=== PATIENT | female | born 1960 | race Caucasian/White ===

== ENCOUNTER 2019-02-09 14:22 | Outpatient (CLI) | payer OTHER, SELFPAY ==
[2019-02-09 15:37] LABS: TSH (W/Ref FT4) 2.37 uIU/mL (0.36-3.74)
== END 2019-02-09 14:42 ==
PROVIDERS: PCP General Practice; Visit Provider General Practice
DX: E04.8 Other specified nontoxic goiter (principal)
CPT/HCPCS: 36415; 84443

== ENCOUNTER 2019-03-18 06:19 | Day surgery (SDC) | payer OTHER, SELFPAY ==
[2019-03-18 06:41] VITALS: BP 121/79; PULSE 70; RESP 16; TEMP 36.3; O2SAT 100
[2019-03-18] MEDS: Lactated Ringers 1,000 ML 80 ML IV (06:58)
--- NOTE | 2019-03-18 07:25 | W.PM.DSUDISC ---
Discharge Plan Disposition Patient Disposition: HOME Condition: Good Discharge Details Reason For Visit: Colonoscopy Attending Provider: Nikki Levi Primary Care Provider: Francisco Javier Bonner Home Meds and New Rx's Prescriptions: Continued cholecalciferol (vitamin D3) 1,000 unit capsule 1,000 unit PO DAILY RF: 0 calcium carbonate [Calci-Chew] 500 mg calcium (1,250 mg) tablet,chewable 500 mg PO DAILY RF: 0 ascorbic acid (vitamin C) 500 mg capsule 500 mg PO DAILY RF: 0 Zyrtec 10 mg capsule 10 mg PO DAILY PRNRF: 0 epinephrine [EpiPen] 0.3 mg/0.3 mL auto-injector 0.3 mg IM ONCE RF: 0 albuterol sulfate [Ventolin HFA] 90 mcg/actuation HFA aerosol inhaler 1 puff IH PRN RF: 0 Discontinued polyethylene glycol 3350 17 gram/dose powder 238 g PO ONCE Qty: 238 RF: 0 bisacodyl [Dulcolax (bisacodyl)] 5 mg tablet,delayed release (DR/EC) 5 mg PO ONCE Qty: 4 RF: 0 Discharge Instructions Additional Instructions: Findings: Your colonoscopy was normal. Follow up: Plan for follow up screening colonoscopy in 10 years or sooner if symptoms arise. Please call if you develop: fevers >101.5 Nausea or Vomiting Abdominal pain that is not transient DAY SURGERY UNIT POST COLONOSCOPY INSTRUCTIONS 1. Because there will be medication in your system for the next 24 hours, you may feel a little sleepy. Your coordination will be affected. Therefore: a. Do not drive or operate dangerous equipment for 24 hours. b. Do not drink alcohol beverages for 24 hours (not even beer). c. Plan to go home and rest for the day. 2. Generally there are no restrictions on your activity after a day or so has gone by, but you may feel a bit fatigued for a few days. 3 After you arrive home you may have a light meal and return to a normal diet as you can tolerate it without feeling sick to your stomach. 4. After surgery, you may feel pain or discomfort. This should be only transient, but if it persists please contact your doctor. 5. If there are any questions regarding the findings of your procedure, please feel free to contact your doctor. 6. If you are unable to contact your doctor with a problem, contact the hospital at [phone]. 7. Continue all your regular medications unless directed otherwise. I understand the above instructions and have no questions. Signature of Patient or Responsible Adult Escort Date/Time Name of Responsible Adult Escort Signature of Nurse Date/Time Activity:: Activity as Tolerated Diet:: As Tolerated Discharge Orders Discharge Orders: Discharge Order (Routine); Ordered 03/18/19 Ordered By: Nikki Levi DS: Diagnosis Discharge Diagnosis (1) Normal colonoscopy: Status: Acute
[2019-03-18 08:29] VITALS: BP 114/76; PULSE 62; RESP 16; TEMP 36.2; O2SAT 100
--- NOTE | 2019-03-18 10:19 | COLE_ITS ---
DATE OF PROCEDURE: March 18, 2019 PREOPERATIVE DIAGNOSIS: Screening. POSTOPERATIVE DIAGNOSIS: Normal colon. PROCEDURE: Colonoscopy. SURGEON: Nikki Levi M.D. ANESTHESIA: General. INDICATIONS: This is a 58-year-old woman who presents for a routine colon screening. Her last one i n 2008 was normal. She is asymptomatic and has no family history of colon cancer. PROCEDURE: She was placed in the left Ann position. Propofol was titrated to sedation. Digital re ctal examination revealed no abnormalities. The scope was advanced to the cecum without difficulty. The ileocecal valve and appendiceal orifice were clearly identified. Her prep was excellent. The s cope was slowly withdrawn with no abnormalities seen within the ascending, transverse, descending, si gmoid colon or rectum, including on retroflex view. She tolerated the procedure and was stable to re covery. She will need a follow-up screening again in ten years or sooner if symptoms indicate. cc: Francisco Javier Bonner M.D.
== END 2019-03-18 09:06 | disposition home or self-care (01) ==
PROVIDERS: PCP General Practice; Visit Provider Surgery
PROC: 0DJD8ZZ Inspection of Lower Intestinal Tract, Via Natural or Artificial Opening Endoscopic (ICD-10-PCS; CPT 45378; principal; 2019-03-18 07:30)
DX: Z12.11 Encounter for screening for malignant neoplasm of colon (principal)
CPT/HCPCS: 45378

== ENCOUNTER 2020-05-17 01:44 | Outpatient (CLI) | payer OTHER, SELFPAY ==
--- NOTE | 2020-05-17 08:00 | DI.US_ITS ---
EXAM: US THYROID CLINICAL HISTORY: enlarged thryoid,goiter, e04.9. TECHNIQUE: Ultrasound thyroid performed using standard protocol. COMPARISON: No exams were available for comparison FINDINGS: ISTHMUS: 3 mm RIGHT LOBE: Size: 4.8 x 1.4 x 1.8 cm Echogenicity: Mildly heterogeneous overall thyroid echotexture. Vascularity: Normal. Nodules: 1.2 x 0.6 x 1.0 centimeter isoechoic solid nodule containing punctate echogenic foci. The m argins are well-defined. Three other smaller nodules are seen measuring 5 millimeters or less in siz e. LEFT LOBE: Size: A 0.5 x 0.9 x 1.5 cm Echogenicity: Normal. Vascularity: Normal. Nodules: None. OTHER FINDINGS: None. IMPRESSION: 1.2 centimeter solid nodule at the lower pole of the right lobe consistent with a TI-RADS category 4 lesion. Follow-up is recommended in 1 year. Normal sonographic appearance of the left thyroid lobe DATA REPOSITORY:
== END 2020-05-17 01:45 ==
LOC: DI 01:45
PROVIDERS: PCP Nurse Practitioner Family; Visit Provider Nurse Practitioner Family
DX: E04.1 Nontoxic single thyroid nodule (principal)
CPT/HCPCS: 76536

== ENCOUNTER 2020-05-31 03:14 | Outpatient (CLI) | payer OTHER, SELFPAY ==
[2020-05-31 16:36] LABS: Anion Gap 9.5 mmol/L (3-11); BUN 23 mg/dL (7-18); CO2 28.5 mmol/L (21.0-32.0); CREATININE 0.9 mg/dL (0.55-1.02); Calculated LDL 81 mg/dL (<100); Chloride 103 mmol/L (98-107); Cholesterol 176 mg/dL (<200); Glucose 87 mg/dL (74-106); HDL Cholesterol 75 mg/dL (40-60); Potassium 4.6 mmol/L (3.5-5.1); Sodium 141 mmol/L (136-145); TSH 1.45 uIU/mL (0.36-3.74); Triglyceride 101 mg/dL (<150)
[2020-05-31 17:10] LABS: FREE T4 0.93 ng/dL (0.76-1.46)
== END 2020-05-31 03:15 | disposition home or self-care (01) ==
LOC: LBO 03:14
PROVIDERS: PCP Nurse Practitioner Family; Visit Provider Nurse Practitioner Family
DX: E78.5 Hyperlipidemia, unspecified (principal); E04.8 Other specified nontoxic goiter
CPT/HCPCS: 36415; 80048; 80061; 83036; 84439; 84443

== ENCOUNTER → 2020-07-12 00:53 | Outpatient (CLI) | payer OTHER, SELFPAY ==
--- NOTE | 2020-07-12 08:15 | DI.DEXA_ITS ---
EXAM: XR DEXA BONE DENSITY W/WO KUNAL CLINICAL HISTORY: Osteopenia on dexa scan in 2017,M85.80 TECHNIQUE: HoloFANCRU Horizon C densitometer COMPARISON: No exams were available for comparison FINDINGS: Lateral view of the thoracic and lumbar spine shows accentuation of the thoracic kyphosis but no no e vidence of compression fractures. Bone mineral density measurements of the lumbar spine correspond to a total T-score of 0.9, in the n ormal range. There are degenerative disc changes evident at L3-4 with sclerosis of the endplates whi ch could for sleep elevate the bone mineral density measurements. The least dense vertebral body is L1 with a T-score of 0.3 which is in the normal range. Bone mineral density measurements of the left hip correspond to a total T-score of -0.9. The femora l neck T-score is -1.5, consistent with osteopenia.. The left forearm bone mineral density measurements correspond to a T-score of the distal 3rd of -0.3 , in the normal range.. IMPRESSION: Normal bone mineral density of the lumbar spine and left forearm. Mild osteopenia of the left hip.
== END ==
PROVIDERS: PCP Nurse Practitioner Family; Visit Provider Nurse Practitioner Family
DX: M85.88 Other specified disorders of bone density and structure, other site (principal)
CPT/HCPCS: 77080

== ENCOUNTER 2021-06-20 03:53 | Outpatient (CLI) | payer OTHER, SELFPAY ==
[2021-06-20 09:05] LABS: Hemoglobin A1C 5.9 % (<5.7)
[2021-06-20 09:41] LABS: Anion Gap 7.3 mmol/L (3-11); BUN 15 mg/dL (7-18); CO2 29.7 mmol/L (21.0-32.0); CREATININE 0.9 mg/dL (0.55-1.02); Calcium 8.6 mg/dL (8.5-10.1); Chloride 103 mmol/L (98-107); Cholesterol 188 mg/dL (<200); Glucose 82 mg/dL (74-106); HDL Cholesterol 81 mg/dL (40-60); Potassium 4.6 mmol/L (3.5-5.1); Sodium 140 mmol/L (136-145); TSH (W/Ref FT4) 2.03 uIU/mL (0.36-3.74)
[2021-06-20 09:43] LABS: TSH 1.97 uIU/mL (0.36-3.74)
[2021-06-20 09:56] LABS: Vitamin D 25 Total 48.7 ng/mL (30-100)
[2021-06-20 10:08] LABS: LDL CHOLESTEROL 97 mg/dL (<100); Triglyceride 25 mg/dL (<150)
[2021-06-20 22:44] LABS: Thyroperoxidase Antibody 100 U/mL (<=60)
== END 2021-06-20 03:54 | disposition home or self-care (01) ==
PROVIDERS: PCP Nurse Practitioner Family; Visit Provider Internal Medicine Endocrinology, Diabetes & Metabolism
DX: E04.1 Nontoxic single thyroid nodule (principal); R73.03 Prediabetes; M85.88 Other specified disorders of bone density and structure, other site
CPT/HCPCS: 36415; 80048; 80061; 82306; 83721; 83036; 84443; 86376

== ENCOUNTER 2021-10-04 02:49 | Outpatient (CLI) | payer OTHER, SELFPAY ==
--- OUTSIDE RECORDS SUMMARY | 2021-10-04 02:50 | XMS_ITS | Encounter Summary ---
:1960 Author Organization [facility] [place] [address] Care Team Providers Name Role Phone Kristina Escobar APRN Primary Care Provider Reason for Visit Audiology Exam (Routine) - Closed Specialty Diagnoses / Procedures Referred By Contact Refer red To Contact Audiology Diagnoses schedule HAF and HAC Kristina Escobar APRN Pendak, Kerry L, AUD Procedures HEARING AID FITTING [address] [place] [address] [address] [place] [address] [place] [address] Phone: Fax: Referral ID Status Reason Start Date Expiration Date Visits Requ ested Visits Authorized [id number] Closed 06/27/2021 06/27/2022 1 1 Encounter Details Date Type Department Care Team Description 06/27/2021 Office Visit Audiology at [facility] [place] [place], Mixed hearing loss, [facility] [place] [address] AUDIOLOGY DEPT [phone] [place], [place] [address] Social History Tobacco Use Types Packs/Day Years Used Date Never Smoker Smokeless Tobacco: Never Used Alcohol Use Standard Drinks/Week Comments No 0 (1 standard drink = 0.6 oz pure alcoho l) Sex Assigned at Date Recorded Not on file documented as of this encounter Progress Notes ChuckyOnelia, AUD - 06/27/2021 10:30 AM EDT AUDIOLOGY Dianne Garza was fit today with binaural hearing aids. History is positive for bilateral mixed hearing loss. Otoscopy showed clear ear canals bilaterally. Hearing aid programming was adjusted so that the aidedresponses approximated prescriptive targets for speech without exceeding MPO targets. Ms. Garza was subjectively satisfied with the sound quality of the aids and loudness discomfort was denied. Ms. Garaz was instructed on use, care and maintenance of the hearing aids, including instruction on hearing aid insertion/removal, cleaning and batteries. Warranty coverage, and the 30-day trial period were discussed. A review of expectations and the hearing aid adjustment process were also discussed. Ms. Garza was able to insert and manipulate the instruments with ease. The hearing aids were paired to her cell phone, and she was able to hear streamed music. The hearing aid larisa was downloaded toher cell phone and the hearing aids were successfully paired to it. she will be seen in 2-4 weeks for a follow-up hearing aid check and orientation. Lito Garcia Clinical [employer]ft [place] [address] ; AMPLIFICATION EQUIPMENT LIST: HEARING AID RIGHT LEFT Make/Model/Style Phonak Audeo P90 R Phonak Audeo P90 R Casing Color Black Black Serial Number [id number] Battery Size Rechargeable Rechargeable Invoice number/date [id number] 06/12/2021 [id number] 06/12/2021 Other Comments ? PROGRAM/SETTINGS ? Fitting Algorithm DSL-Adult DSL-Adult Verification Method REM REM SII (w/65 dBSLP) unaided/aided ? Programs Autosense OS Autosense OS Other Comments >active features: VC >disabled features: Program change ?? GROVER WARRANTY ? Original Fit Date 06/27/2021 06/27/2021 Current Status 09/09/2024 09/09/2024 EARMOLD (if BTE GROVER) ? Lab ? Earmold / Slim tube / ROCÍO / Dome specifics Length 1 M adz worker/ cap dome ?? Length 1 M adz worker/ capdome ?? Impression Date ? Invoice number/date ? Other Comments ? ACCESSORIES ? Make/Model (color) ? Serial Number ? Warranty date ? Invoice number/date ? Settings ? Other Comments ? HEARING AID(S): HEARING AID ?? RIGHT ?? LEFT ?? Make/Model/Style ?? Phonak Audeo V90 312-T ?? Phonak Audeo V90 312-T ?? Casing Color ?? Petrol ?? Petrol ?? Serial Number ?? [id number] ?? [id number] ?? Battery Size ?? 312 ?? 312 ?? Invoice number / date ?? [id number] 03/09/14 ?? [id number] 03/09/14 ?? PROGRAM/SETTINGS ? Fitting Algorithm ?? DSL-Adult ?? Same ?? Verification Method ?? REM ?? Same ?? Programs ?? Autosense OS ?? Mute?? Autosense OS ?? Mute?? Disabled Features ? Other ? HEARING AID WARRANTY ? Original Fit Date ?? 04/04/14 ?? 04/04/14 ?? Current Status ?? 06/06/16 ?? 06/06/16 ?? EARMOLD (if BTE GROVER) ? Lab ? Earmold / Slim tube / ROCÍO specifics ?? Length 1 adz worker/ small closed dome ?? Length 1 adz worker/ small closed dome ?? Impression Date ? Invoice # ? ACCESSORIES ? Make/Model ? Color ? Serial Number ? Warranty date ? Invoice number/date? documented in this encounter Plan of Treatment Upcoming Encounters Date Type Specialty Care Team Description 11/14/2021 Office Visit Audiology Onelia Locke [facility] AUDIOLOGY DEPT [place], [place] [address] (Wo rk) documented as of this encounter Visit Diagnoses Diagnosis Mixed hearing loss, bilateral documented in this encounter Care Teams Mud Jack Nozzle Worker Relationship Specialty Start Date End Date Kristina Escobar APRN PCP - General 02/24/[address] [place] [address] documented as of this encounter
--- OUTSIDE RECORDS SUMMARY | 2021-10-04 02:50 | XMS_ITS | Encounter Summary ---
:1960 Author Organization [facility] [place] [address] Care Team Providers Name Role Phone Kristina Escobar APRN Primary Care Provider Reason for Visit Consultation (Routine) - Closed Specialty Diagnoses / Procedures Referred By Contact Refer red To Contact Endocrinology Diagnoses Nontoxic goiter, unspecified Kristina Escobar APRN [facility] Endocrinology [address] [address] [place], [place] [address] Referral ID Status Reason Start Date Expiration Date Visits V isits Requested Authorized [id number] Closed Consult, Test 05/23/2020 05/23/2021 [facility] PCP Updated and/or Approved Encounter Details Date Type Department Care Team Description 06/21/2020 TH Visit [facility]ocr[facility]ology at [facility] Kyle Escalante, Thyroid nodule; (TeleHealth) [facility] Jumana Kirk MD [place]openia, [place] [address] CENTER [phone] [place] [address] Social History Tobacco Use Types Packs/Day Years Used Date Never Smoker Smokeless Tobacco: Never Used Alcohol Use Standard Drinks/Week Comments No 0 (1 standard drink = 0.6 oz pure alcoho l) Sex Assigned at Date Recorded Not on file documented as of this encounter Last Filed Vital Signs Vital Sign Reading Time Taken Comments Blood Pressure - - Pulse - - Temperature - - Respiratory Rate 12 06/21/2020 10:24 AM EDT Oxygen Saturation - - Inhaled Oxygen Concentration - - Weight 54.9 kg (121 lb) 06/21/2020 10:24 AM EDT Height 154.9 cm (5' 1) 06/21/2020 10:24 AM EDT Body Mass Index 22.86 06/21/2020 10:24 AM EDT documented in this encounter Patient Instructions Patient InstructionsJumana Escalante MD - 06/21/2020 10:00 AM EDT PLAN: 1. Medication: Patient will NOT need to start taking levothyroxine as her TSH is good at 1.45 (target TSH 0.5-2.0 range for nodule suppression). To cont Ca/D and OTC-vitamin D 1,000 iu daily for her osteopenia. Target 25vitD 50s-60s (normal 30-100) Patient will continue all other medications, healthy diet and execise regularly. 2. To eat low fat/controlled carb and healthy diet as well as regular exercise to keep weight stable 3. Lab: check lab at next lab draw locally ([facility]) for TSH, TPO Ab, 25-vitamin D X-ray/Imaging study: Office Thyroid ultrasound for thyroid and nodule size next year at our office for real-time US. She will do DXA scan locally next month as scheduled and to send a copy of the report and images (print-out) for our documentation as well. 4. RTC: 12 months or earlier if needed and will check TSH and neck ultrasound at our office at that time (quick-draw lab so we know the result right away at next visit) JUMANA ESCALANTE MD documented in this encounter Progress Notes Jumana Escalante MD - 06/21/2020 10:00 AM EDT Endocrinology Consultation Date of Visit: 06/21/2020 Patient: Name: Dianne Garza : 1960 Dianne Garza is a 59 y.o. female seen in consultation in the Endocrine clinic at the request of Dr. Kristina Escobar, AZEEM for: multiple thyroid nodules. Patient's previous record as are the lab results are reviewed. HISTORY OF PRESENT ILLNESS: Dianne Garza is a very pleasant 59 y.o. female who presents for further management of multiple thyroid nodules. Her PCP first noted goiter since 2018 and then recently he retired and her new PCP arranged for US. Her ultrasound showed a small isoechoic nodule of 1.2 cm in the right lower lobe and the other 3 nodules are all smaller than 0.5 cm on the right lobe (see scanned document for outside US report at [facility] on 05/17/20). The right lobe showed some heterogeneous texture but normal vascularity while the left lobe was normal. The rigth lobe measure 4.8 cm normal size and I believe there is a typo error on the left lobe size which should read 5.0x0.9x1.5 cm (not 0.5x0.9x1.5 cm). She has only mild goiter by the measurements on US. Patient has strong FH of thyroid problem on mother side (+Grave's disease in her mother, a counsin with thyroid nodule, and hypothyroid in her brother). No family history of thyroid cancer that patient is aware of but breast and lung cancer in her mother (BRCA negative) No previous head and neck irradiation but used to have XRT to the left breast for ca after mastectomy in 2009 (not sure if she has thyroid shield or not). She does not take other excessive iodine or biotin supplements or medications that can cause abnormal thyroid function. Her PCP noticed goiter but she denies neck pain or difficulty swallowing or voice changes. She also has osteopenia on DXA scan in 2017 without fragility fracture and already on Ca/D & OTC-vitamin D 1,000 iu daily. Recent labs: 05/31/20 TSH 1.45 (target TSH 0.5-2.0 for thyroid nodule) Free T4 0.93 Ca 9.0 TPO Ab - 25vitamin D - TC/LDL 176/81 TG/HDL 101/75 Fatigue - no Weight gain - No, stable at 120-123 lbs Intolerance to cold - No, some hot flushes Dry skin - No +some eczma constipation - no Menstrual irregularities - No s/p EMELIA since Mar 2007 Muscle and joint pain - Yes, some hip pain and low back Sleep disturbances - no Forgetfulness - no Globus sensation - no Difficulty swallowing - no Difficulty breathing - no Hoarseness or voice change - no History of head & neck XRT exposure - no, except for XRT to her left breast in [id number] but herthyroid nodules are on the opposite side Family history of thyroid cancer: - no REVIEW OF SYSTEMS: as per HPI, all other systems reviewed and negative PAST MEDICAL HISTORY Patient Active Problem List Diagnosis Code ??? Breast CA C50.919 ??? 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 Multiple thyroid nodules with goiter in 2018 and confirmed on US on 05/17/20 E04.2 ??? Mild intermittent asthma J45.20 ??? S/P partial EMELIA (total abdominal hysterectomy) Z90.710 ??? Osteopenia on DXA scan in 2017 M85.80 Allergy: Allergies Allergen Reactions ??? Latex Rash ??? Fish Containing Products Anaphylaxis Medication: Current Outpatient Medications on File Prior to Visit Medication Sig Dispense Refill ??? ubiquinone (COENZYME Q10) 10 mg Capsule Take by mouth. ??? cetirizine (ZYRTEC) 10 mg Tablet, Chewable Take 10 mg by mouth daily. ??? Calcium Carbonate-Vitamin D3 (CALCIUM WITH VITAMIN D) 600 mg(1,500mg) -400 unit Tab Take by mouth 2 times daily. ??? [DISCONTINUED] UNABLE TO FIND Take 1 capsule by mouth daily. [place] ??? pirbuterol (MAXAIR AUTOHALER) 200 mcg/Inhalation inhaler ??? fexofenadine (DEEP) 180 mg tablet ??? multivitamin (THERAGRAN) tablet ??? [DISCONTINUED] GLUCOSAMINE HCL/CHONDR VALLE A NA (GLUCOSAMINE-CHONDROITIN) 750- 600 mg Tab ??? [DISCONTINUED] acetaminophen (TYLENOL) 325 mg tablet No current facility-administered medications on file prior to visit. Social history: Social History Socioeconomic History ??? Marital status: Spouse name: Not on file ??? Number of children: Not on file ??? Years of education: Not on file ??? Highest education level: Not on file Occupational History ??? Not on file Tobacco Use ??? Smoking status: Never Smoker ??? Smokeless tobacco: Never Used Substance and Sexual Activity ??? Alcohol use: No ??? Drug use: Not on file ??? Sexual activity: Not on file Other Topics Concern ??? Not on file Social History Narrative ??? Not on file Social Determinants of Health Financial Resource Strain: ??? Difficulty of Paying Living Expenses: Food Insecurity: ??? Worried About Running Out of Food in the Last Year: ??? Ran Out of Food in the Last Year: Transportation Needs: ??? Lack of Transportation (Medical): ??? Lack of Transportation (Non-Medical): Physical Activity: ??? Days of Exercise per Week: ??? Minutes of Exercise per Session: Stress: ??? Feeling of Stress : Social Connections: ??? Frequency of Communication with Friends and Family: ??? Frequency of Social Gatherings with Friends and Family: ??? Attends Synagogue Services: ??? Active Member of Clubs or Organizations: ??? Attends Club or Organization Meetings: ??? Marital Status: Intimate Partner Violence: ??? Fear of Current or Ex-Partner: ??? Emotionally Abused: ??? Physically Abused: ??? Sexually Abused: Family History: Family History Problem Relation Age of Onset ??? Breast Cancer Mother ??? Lung Cancer Mother ??? Breast Cancer Other cousin at age 62 ??? Breast Cancer Maternal Aunt ??? Breast Cancer Paternal Aunt ??? Breast Cancer Cousin ??? Breast Cancer Cousin PHYSICAL EXAM: Resp 12 Ht 154.9 cm (5' 1) Wt 54.9 kg (121 lb) BMI 22.86 kg/m?? Appearance: non-obese, very pleasant, NAD HEENT: PERRLA, EOMI, no lid lag or exophthalmos Neck: supple, no significant goiter visible while swallowing Ext: normal skin appearance no edema in LEs Neuro: no weakness, non-focal, no facial asymmetry. DIAGNOSIS: 59 y.o. lady with multiple small right thyroid nodules with normal TSH in euthyroid. Her PCP first noted goiter since 2018 and she recently had ultrasound which showed a small isoechoic nodule of 1.2 cm in the right lower lobe and the other 3 nodules are all smaller than 0.5 cm on the right lobe. Patient has strong FH of thyroid problem on mother side (+Grave's disease in her mother, a counsin with thyroid nodule, and hypothyroid in her brother) and no family history of thyroid cancer that patient is aware of but breast and lung cancer in her mother (BRCA negative). She used to have left breast ca s/p surgery and XRT in 2009 but her nodules are all on the opposite side so they are unlikely relatedto previous radiation on the left breast. She denies any pressure symptoms (no neck pain or difficulty swallowing or voice changes) and the nodule is still small <1.5-2 cm for isoechoic nodule, so she does not need FNA but will follow neck US after a year. She also has osteopenia on DXA scan in 2017 with plan to repeat DXA scan next month. No h/o fragility fracture and already on Ca/D & OTC-vitamin D 1,000 iu daily. PLAN: 1. Medication: Patient will NOT need to start taking levothyroxine as her TSH is good at 1.45 (target TSH 0.5-2.0 range for nodule suppression). To cont Ca/D and OTC-vitamin D 1,000 iu daily for her osteopenia. Target 25vitD 50s-60s (normal 30-100) Patient will continue all other medications, healthy diet and execise regularly. 2. To eat low fat/controlled carb and healthy diet as well as regular exercise to keep weight stable 3. Lab: check lab at next lab draw locally ([facility]) for TSH, TPO Ab, 25-vitamin D X-ray/Imaging study: Office Thyroid ultrasound for thyroid and nodule size next year at our office for real-time US. She will do DXA scan locally next month as scheduled and to send a copy of the report and images (print-out) for our documentation as well. 4. RTC: 12 months or earlier if needed and will check TSH and neck ultrasound at our office at that time (quick-draw lab so we know the result right away at next visit) 5. Patient info on thyroid nodule was explained in details today We discussed with pt the prevalence of thyroid nodules: Approximately 5% of individuals have palpable thyroid nodules and 30% or more of adults have non- palpable nodules. The prevalence of nodules increases with age, so that perhaps 50% of individuals older than 60 years of age have nodules. Many of these nodules will be well under 1cm in size. The incidence of thyroid cancer is low, but rising due to better imaging study. The prevalence of thyroid cancer is low compared with the prevalence of thyroid nodule. In 2007, there were about 434,000 individuals in the [place] with a history of thyroid cancer. Most studies have estimated malignancy risk in nodules that are palpable or > 1cm on U/S to be in the range of 3-15%. At [facility], the nodules selected for biopsy are histologically positive in about 7% of cases. In general, options for further evaluation include: - Follow with serial U/S - Fine needle aspiration biopsy - Thyroidectomy At [facility], our criteria for FNA biopsy includes: - All palpable nodules - All nodules > 1 cm in two or more dimensions if hypoechoic nodules and > 1.5- 2.0 cm for isoechoic or mixed nodules. - Nodules > 1 cm with high risk sonographic features, or occuring in patients with high risk historical features - Nodules that have been previously biopsied and found to have benign cytology but which have subsequently enlarged or changed significantly - Simple cysts do not require FNA biopsy ?? Nodules not meeting the above criteria can generally be followed with serial ultrasounds. We can do FNA biopsy if the nodule is significantly enlarging in size in the future. We have reviewed our plan outlined above with the patient, and patient verbalized understanding. Allquestions were answered and most of the time was spent on counseling about her thyroid conditions, medications adjustment, including pros and cons of medication, the diagnostic and therapeutic decisions, and coordination of care. Thank you for allowing me to participate in the care of this very pleasant patient. Jumana Escalante MD, PhD, FACE, FACP cc: Kristina Escobar APRN documented in this encounter Plan of Treatment Upcoming Encounters Date Type Specialty Care Team Description 11/14/2021 Office Visit Audiology Onelia Locke, [facility] AUDIOLOGY [place], [place] [address] (Wo rk) documented as of this encounter Visit Diagnoses Diagnosis Thyroid nodule Nontoxic uninodular goiter Osteopenia, unspecified location documented in this encounter Care Teams Meat Grinder Relationship Specialty Start Date End Date Kristina Escobar APRN PCP - General 02/24/[address] [facility] [address] [place] [address] documented as of this encounter
--- OUTSIDE RECORDS SUMMARY | 2021-10-04 02:50 | XMS_ITS | Encounter Summary ---
:1960 Author Organization [facility] [place] [address] Care Team Providers Name Role Phone Kristina Escobar APRN Primary Care Provider Encounter Details Date Type Department Care Team Description 06/24/2021 Travel Social History Tobacco Use Types Packs/Day Years Used Date Never Smoker Smokeless Tobacco: Never Used Alcohol Use Standard Drinks/Week Comments No 0 (1 standard drink = 0.6 oz pure alcoho l) Sex Assigned at Date Recorded Not on file documented as of this encounter Plan of Treatment Upcoming Encounters Date Type Specialty Care Team Description 11/14/2021 Office Visit Audiology Onelia Locke, AUD [facility] AUDIOLOGY DEPT [place], [place] [address] (Wo rk) documented as of this encounter Visit Diagnoses Not on filedocumented in this encounter Care Teams Jewel Blocker And Sawyer Relationship Specialty Start Date End Date Kristina Escobar APRN PCP - General 02/24/[address] [place], [place] [address] documented as of this encounter
--- OUTSIDE RECORDS SUMMARY | 2021-10-04 02:50 | XMS_ITS | Encounter Summary ---
:1960 Author Organization [facility] [address] Care Team Providers Name Role Phone Kristina Escobar APRN Primary Care Provider Encounter Details Date Type Department Care Team Description 09/13/2020 Telephone Endocrinology at [facility] [place] [address] Social History Tobacco Use Types Packs/Day Years Used Date Never Smoker Smokeless Tobacco: Never Used Alcohol Use Standard Drinks/Week Comments No 0 (1 standard drink = 0.6 oz pure alcoho l) Sex Assigned at Date Recorded Not on file documented as of this encounter Miscellaneous Notes Telephone Encounter - Vane Tarango I - 09/13/2020 2:35 PM EDT Needs to schedule a follow up with Dr. Faust for June 2021 documented in this encounter Plan of Treatment Upcoming Encounters Date Type Specialty Care Team Description 11/14/2021 Office Visit Audiology Onelia Locke, AUD [facility] AUDIOLOGY DEPT [place], [place] [address] (Wo rk) documented as of this encounter Visit Diagnoses Not on filedocumented in this encounter Care Teams Termite Control Servicer Relationship Specialty Start Date End Date Ellen EscobarlaAZEEM wagner PCP - General 02/24/[address] [place] [address] documented as of this encounter
--- OUTSIDE RECORDS SUMMARY | 2021-10-04 02:50 | XMS_ITS | Clinical Summary ---
:1960 Author Organization [facility] [place] [address] Care Team Providers Name Role Phone Kristina Escobar AZEEM Primary Care Provider Allergies Active Allergy Reactions Severity Noted Date Comments Fish Containing Products High Shameka phylaxis Latex Medium Rash Medications Medication Sig Dispensed Refills Start Date End Date Status pirbuterol (MAXAIR 0 09/13/2009 Active AUTOHALER) 200 mcg/Inhalation inhaler fexofenadine 0 09/13/2009 Active (DEEP) 180 mg tablet multivitamin 0 09/13/2009 Active (THERAGRAN) tablet calcium-vitamin D3 Take by mouth 2 0 Active 600 mg-10 mcg (400 times daily. unit) Tablet cetirizine (ZYRTEC) Take 10 mg by 0 Active 10 mg Tablet, mouth daily. Chewable cholecalciferol, Take 1 capsule by 0 06/21/2020 Active Vitamin D3, 25 mcg mouth daily. (1,000 unit) Capsule levothyroxine Take 0.5-1 90 tablet 3 07/08/2021 07/08/2022 Act jordon (Synthroid) 25 mcg tablets by mouth Tablet daily. Start with 0.5 tab daily for a week and then increase to 1 tab daily on empty stomach upon awakening at least 30 mins before meal Active Problems Problem Noted Date Multiple thyroid nodules with goiter in 2018 and confi rmed on US on 06/21/2020 05/17/20 Mild intermittent asthma 06/21/2020 S/P partial EMELIA (total abdominal hysterectomy) 021 Osteopenia on DXA scan in 2017 06/21/2020 Mixed conductive and sensorineural hearing loss 2015 Breast CA 08/05/2010 Encounters Date Type Specialty Care Team Description 09/26/2021 Telephone Audiology April Mendoza 07/25/2021 Office Visit Audiology Onelia Locke, AUD Mixed h earing loss, bilateral from Last 3 Months Immunizations Name Administration Dates Next Due Influenza PF, Split 01/30/2016, 01/13/2013 Influenza Vaccine PF, Quadrivalent 01/16/2020, 02/02/2019, 1 , 02/04/2017 Influenza Vaccine w/Preservative, 01/01/2015 Seasonal, Injectable Influenza Vaccine w/Preservative, 01/30/2014, 12/19/2011, Split Pfizer Covid-19 (Purple Cap) Vaccine 05/11/2020, 04/20/2020 (12yrs+) Tdap Vaccine 10/28/2010 Tuberculin Skin Test, PPD 10/14/2010 Family History Medical History Relation Comments Breast Cancer Cousin 1 Breast Cancer Cousin 2 Breast Cancer Maternal Aunt Breast Cancer Mother Lung Cancer Mother Breast Cancer Other cousin at age 6 2 Breast Cancer Paternal Aunt Relation Status Comments Brother Alive asthma Cousin 1 Alive Cousin 2 Alive Father (Age 46) heart disease Maternal Aunt Mother (Age 86) lung cancer, breast cancer Other Paternal Aunt Social History Tobacco Use Types Packs/Day Years Used Date Never Smoker Smokeless Tobacco: Never Used Alcohol Use Standard Drinks/Week Comments No 0 (1 standard drink = 0.6 oz pure alcoho l) Sex Assigned at Date Recorded Not on file Last Filed Vital Signs Vital Sign Reading Time Taken Comments Blood Pressure 151/67 06/24/2021 4:25 PM EDT Pulse 71 06/24/2021 4:25 PM EDT Temperature 36.2 ??C (97.2 ??F) 06/24/2021 4:25 PM EDT Respiratory Rate 12 06/21/2020 10:24 AM EDT Oxygen Saturation 100% 06/24/2021 4:25 PM EDT Inhaled Oxygen Concentration - - Weight 52.9 kg (116 lb 9.6 oz) 06/24/2021 4:25 PM EDT Height 156.2 cm (5' 1.5) 06/24/2021 4:25 PM EDT Body Mass Index 21.67 06/24/2021 4:25 PM EDT Plan of Treatment Upcoming Encounters Date Type Specialty Care Team Description 11/14/2021 Office Visit Audiology Onelia Locke, AUD [facility] AUDI[facility] DEPT [place], [place] [address] (Wo rk) Health Maintenance Due Date Last Done Comments Pneumococcal Vaccine: At-Risk 1964 5-64yrs (1 - PCV) HIV screen 1976 Hepatitis C Screening 1976 HPV test 1988 PAP Smear 1988 Breast Cancer Share Decision 1998 Needed Colonoscopy 11/29/2003 Zoster vaccine (1 of 2) 2008 Covid-19 Vaccine (3 - Booster for 10/08/2020 05/11/2020, Pfizer series) Tetanus vaccine 10/28/2020 10/28/2010 Influenza (Flu) vaccine (1 of 1 - 12/05/2020 01/16/2020, , Influenza standard series) 01/27/2018, Additiona l history exists Breast Cancer screening 03/12/2023 03/12/2021, 02/24/2020, 12/23/2018, Additional history exists Tdap adult Completed 10/28/2010 Insurance Payer Benefit Plan / Subscriber ID Effective Dates Phone Addre ss Type Group [employer] [id number] 2016-Present [address] [place] [address] Advance Directives Documents on File Type Date Recorded Patient Washer Operator Explanati on Advance Directives and Living 06/05/2010 8:57 AM Will Care Teams Printing Machine Operator Relationship Specialty Start Date End Date Kristina Escobar APRN PCP - General 02/24/[address] [place] [address]
--- OUTSIDE RECORDS SUMMARY | 2021-10-04 02:50 | XMS_ITS | Encounter Summary ---
:1960 Author Organization [facility] [place] [address] Care Team Providers Name Role Phone Kristina Escobar APRN Primary Care Provider Encounter Details Date Type Department Care Team Description 05/07/2020 Orders Only Public Health [address], [place] [facility] [place] [address] [place] [id number] [phone] (Wo rk) Social History Tobacco Use Types Packs/Day Years Used Date Never Smoker Alcohol Use Standard Drinks/Week Comments No 0 (1 standard drink = 0.6 oz pure alcoho l) Sex Assigned at Date Recorded Not on file documented as of this encounter Plan of Treatment Upcoming Encounters Date Type Specialty Care Team Description 11/14/2021 Office Visit Audiology Onelia Locke, AUD [facility] AUDIOLOGY DEPT [place], [place] [address] (Wo rk) documented as of this encounter Visit Diagnoses Not on filedocumented in this encounter Care Teams Assembler Billiard Table Relationship Specialty Start Date End Date Kristina Escobar APRN PCP - General 02/24/[address] [place] [address] documented as of this encounter
--- OUTSIDE RECORDS SUMMARY | 2021-10-04 02:50 | XMS_ITS | Encounter Summary ---
:1960 Author Organization [facility] [place] [address] Care Team Providers Name Role Phone Kristina Escobar APRN Primary Care Provider Encounter Details Date Type Department Care Team Description 04/25/2021 Notes Only Audiology at [facility] [place] [address] Social History Tobacco Use Types Packs/Day Years Used Date Never Smoker Smokeless Tobacco: Never Used Alcohol Use Standard Drinks/Week Comments No 0 (1 standard drink = 0.6 oz pure alcoho l) Sex Assigned at Date Recorded Not on file documented as of this encounter Progress Notes Onelia Locke, AUD - 04/25/2021 4:48 PM EST ENGINEERING PROGRAM MANAGER TO COMPLETE SECTIONS I & II I. DEVICE RECOMMENDATION Note: Fill in relevant cells! If custom GROVER order, provider should complete international sourcing manager order form and leave boxed ear impression and form with HIS. Earmold orders can be sent out as usual. AMPLIFICATION EQUIPMENT LIST: HEARING AID RIGHT LEFT Make/Model/Style Phonak Audeo P90 R Phonak Audeo P90 R Casing Color Black Black Serial Number Battery Size Rechargeable Rechargeable Invoice number/date Other Comments PROGRAM/SETTINGS Fitting Algorithm Verification Method SII (w/65 dBSLP) unaided/aided Programs Other Comments >active features: >disabled features: GROVER WARRANTY Original Fit Date Current Status EARMOLD (if BTE GROVER) Lab Earmold / Slim tube / ROCÍO / Dome specifics Length 1 respite care provider/ small closed dome Length 1 respite care provider/ small closed dome Impression Date Invoice number/date Other Comments ACCESSORIES Make/Model (color) Serial Number Warranty date Invoice number/date Settings Other Comments H.A.T. EQUIP - PERSONAL TRANSMITTER OFFENDER JOB RETENTION SPECIALIST #1 OFFENDER JOB RETENTION SPECIALIST #2 Make / Model (color) Serial number Aftab / Audio shoe Settings Verification date Other Comments WARRANTY Original Fit Date Current Status Invoice number/date ENGINEERING PROGRAM MANAGER TO COMPLETE SECTION II II. PATIENT-SPECIFIC NOTES Yes No MEDICAL CLEARANCE STATUS Medical clearance appt needed ! (Include in AVS instructions) Medical clearance appt took place but documentation missing / needing clarification Medical clearance already on file (Date ) Waiver completed (18+yrs only) PAYMENT STATUS Patient is self-pay. Refit (in trial) EQUIPMENT CPT CODE / FEE TABLE - select item(s) by entering in associated fee CODE FEE DESCRIPTION V5011 300 FITTING/ORIENTATION OF NEW GROVER(S) V5241 DISPENSING FEE, MONAURAL V5160 300 DISPENSING FEE, BINAURAL V5240 DISPENSING FEE, CROS SYSTEM (GROVER+CROS) V5200 DISPENSING FEE, CROS UNIT ONLY [id number] BAHA PROCESSOR, MONAURAL W/SOFTBAND (non-surgical) [id number] BAHA PROCESSOR, BINAURAL W/SOFTBAND (non-surgical) V5040 HEARING AID, MONAURAL, BODY WORN, BONE CONDUCTION V5181 CROS BTE (unit only) V5171 CROS ITE (unit only) V5172 CROS ITC (unit only) V5212 HEARING AID, Bi/CROS; ITE/ITC V5213 HEARING AID, Bi/CROS; ITE/BTE V5214 HEARING AID, Bi/CROS; ITC/ITC V5215 HEARING AID, Bi/CROS; ITC/BTE V5221 HEARING AID, Bi/CROS; BTE/BTE V5254 HEARING AID, DIGITAL, MONAURAL, CIC V5255 HEARING AID, DIGITAL, MONAURAL, ITC V5256 HEARING AID, DIGITAL, MONAURAL, ITE V5257 HEARING AID, DIGITAL, MONAURAL, BTE V5258 HEARING AID, DIGITAL, BINAURAL, CIC V5259 HEARING AID, DIGITAL,BINAURAL, ITC V5260 HEARING AID,DIGITAL, BINAURAL, ITE V5261 6000 HEARING AID,DIGITAL,BINAURAL, BTE V5298 HEARING AID, NOC V5281 ALD, personal fm/dm system, monaural, (1 respite care provider, transmitter, microphone), any type V5282 ALD, personal fm/dm system, binaural, (2 receivers, transmitter, microphone), any type V5288 ALD, personal fm/dm transmitter assistive listening device V5290 ALD, transmitter microphone, any type V5283 ALD, personal fm/dm neck loop induction respite care provider V5284 ALD, personal fm/dm, ear level respite care provider V5285 ALD, personal fm/dm, direct audio input respite care provider V5286 ALD, personal blue tooth fm/dm respite care provider V5287 ALD, personal fm/dm respite care provider, not otherwise specified V5289 ALD, personal fm/dm adapter/boot coupling device for respite care provider, any type V5270 ALD, TV Amplifier, any type V5273 ALD for use w/cochlear implant V5274 ALD, not otherwise specified V5267 GROVER or ALD device/supplies/accessories, not otherwise specified HIS TEAM TO COMPLETE SECTIONS III - V III. MEDICAL CLEARANCE DOCUMENTATION Note: patients under 18 years old must get medical clearance and cannot sign a waiver. Date submitted Reply date / notes received IV. PRIOR AUTHORIZATION Self-pay Insurance coverage verified/date PA submitted/date Reply date / notes received V. SCHEDULING Fitting date . ORDERING Ordered on Back-ordered? Equipment in? - GROVER Equipment in? - ALD/HAT Ear mold in? Rosangela Garcia - 04/25/2021 4:48 PM EST ENGINEERING PROGRAM MANAGER TO COMPLETE SECTIONS I & II I. DEVICE RECOMMENDATION Note: Fill in relevant cells! If custom GROVER order, provider should complete international sourcing manager order form and leave boxed ear impression and form with HIS. Earmold orders can be sent out as usual. AMPLIFICATION EQUIPMENT LIST: HEARING AID RIGHT LEFT Make/Model/Style Phonak Audeo P90 R Phonak Audeo P90 R Casing Color Black Black Serial Number [id number] Battery Size Rechargeable Rechargeable Invoice number/date [id number] 06/12/2021 [id number] 06/12/2021 Other Comments PROGRAM/SETTINGS Fitting Algorithm Verification Method SII (w/65 dBSLP) unaided/aided Programs Other Comments >active features: >disabled features: GROVER WARRANTY Original Fit Date Current Status 09/09/2024 09/09/2024 EARMOLD (if BTE GROVER) Lab Earmold / Slim tube / ROCÍO / Dome specifics Length 1 respite care provider/ small closed dome Length 1 respite care provider/ small closed dome Impression Date Invoice number/date Other Comments ACCESSORIES Make/Model (color) Serial Number Warranty date Invoice number/date Settings Other Comments H.A.T. EQUIP - PERSONAL TRANSMITTER OFFENDER JOB RETENTION SPECIALIST #1 OFFENDER JOB RETENTION SPECIALIST #2 Make / Model (color) Serial number Aftab / Audio shoe Settings Verification date Other Comments WARRANTY Original Fit Date Current Status Invoice number/date ENGINEERING PROGRAM MANAGER TO COMPLETE SECTION II II. PATIENT-SPECIFIC NOTES Yes No MEDICAL CLEARANCE STATUS Medical clearance appt needed ! (Include in AVS instructions) Medical clearance appt took place but documentation missing / needing clarification Medical clearance already on file (Date ) Waiver completed (18+yrs only) PAYMENT STATUS Patient is self-pay. Refit (in trial) EQUIPMENT CPT CODE / FEE TABLE - select item(s) by entering in associated fee CODE FEE DESCRIPTION V5011 300 FITTING/ORIENTATION OF NEW GROVER(S) V5241 DISPENSING FEE, MONAURAL V5160 300 DISPENSING FEE, BINAURAL V5240 DISPENSING FEE, CROS SYSTEM (GROVER+CROS) V5200 DISPENSING FEE, CROS UNIT ONLY [id number] BAHA PROCESSOR, MONAURAL W/SOFTBAND (non-surgical) [id number] BAHA PROCESSOR, BINAURAL W/SOFTBAND (non-surgical) V5040 HEARING AID, MONAURAL, BODY WORN, BONE CONDUCTION V5181 CROS BTE (unit only) V5171 CROS ITE (unit only) V5172 CROS ITC (unit only) V5212 HEARING AID, Bi/CROS; ITE/ITC V5213 HEARING AID, Bi/CROS; ITE/BTE V5214 HEARING AID, Bi/CROS; ITC/ITC V5215 HEARING AID, Bi/CROS; ITC/BTE V5221 HEARING AID, Bi/CROS; BTE/BTE V5254 HEARING AID, DIGITAL, MONAURAL, CIC V5255 HEARING AID, DIGITAL, MONAURAL, ITC V5256 HEARING AID, DIGITAL, MONAURAL, ITE V5257 HEARING AID, DIGITAL, MONAURAL, BTE V5258 HEARING AID, DIGITAL, BINAURAL, CIC V5259 HEARING AID, DIGITAL,BINAURAL, ITC V5260 HEARING AID,DIGITAL, BINAURAL, ITE V5261 6000 HEARING AID,DIGITAL,BINAURAL, BTE V5298 HEARING AID, NOC V5281 ALD, personal fm/dm system, monaural, (1 respite care provider, transmitter, microphone), any type V5282 ALD, personal fm/dm system, binaural, (2 receivers, transmitter, microphone), any type V5288 ALD, personal fm/dm transmitter assistive listening device V5290 ALD, transmitter microphone, any type V5283 ALD, personal fm/dm neck loop induction respite care provider V5284 ALD, personal fm/dm, ear level respite care provider V5285 ALD, personal fm/dm, direct audio input respite care provider V5286 ALD, personal blue tooth fm/dm respite care provider V5287 ALD, personal fm/dm respite care provider, not otherwise specified V5289 ALD, personal fm/dm adapter/boot coupling device for respite care provider, any type V5270 ALD, TV Amplifier, any type V5273 ALD for use w/cochlear implant V5274 ALD, not otherwise specified V5267 GROVER or ALD device/supplies/accessories, not otherwise specified HIS TEAM TO COMPLETE SECTIONS III - V III. MEDICAL CLEARANCE DOCUMENTATION Note: patients under 18 years old must get medical clearance and cannot sign a waiver. Date submitted Reply date / notes received IV. PRIOR AUTHORIZATION Self-pay Insurance coverage verified/date 06/19-Hearing Aids are covered by [employer] Plan Covered at 90% 1 Set/3 Years Deductible $2,800.00, $507.91 met Remaining $2,292.09 Max OOP $4000.00, $507.91 met Remaining $3,892.09 PT may be responsible for up to $3,722.88 Spoke angelia/ Santa. Ref [id number] PA submitted/date Reply date / notes received V. SCHEDULING Fitting date 06/27/2021 . ORDERING Ordered on 06/11/2021 Back-ordered? Equipment in? - GROVER 06/14/2021 Equipment in? - ALD/HAT Ear mold in? documented in this encounter Plan of Treatment Upcoming Encounters Date Type Specialty Care Team Description 11/14/2021 Office Visit Audiology Onelia Locke, AUD [facility] AUDIOLOGY DEPT [place], [place] [address] (Wo rk) documented as of this encounter Visit Diagnoses Not on filedocumented in this encounter Care Teams Senior Biostatistician/Group Leader Relationship Specialty Start Date End Date Kristina Escobar APRN PCP - General 02/24/[address] [place] [address] documented as of this encounter
--- OUTSIDE RECORDS SUMMARY | 2021-10-04 02:50 | XMS_ITS | Encounter Summary ---
:1960 Author Organization [facility] [place] [address] Care Team Providers Name Role Phone Kristina Escobar AZEEM Primary Care Provider Encounter Details Date Type Department Care Team Description 02/24/2020 Office Visit General Surgery at [facility] Hist ory of breast cancer; [facility] ASSEMBLER WATCH TRAIN Encounter for screening mammogram for br east cancer [facility] [address] [place] GENER[facility] SURGERY [address] [place] [address] [phone] Social History Tobacco Use Types Packs/Day Years Used Date Never Smoker Alcohol Use Standard Drinks/Week Comments No 0 (1 standard drink = 0.6 oz pure alcoho l) Sex Assigned at Date Recorded Not on file documented as of this encounter Progress Notes Dixie Saucedo APRN - 02/24/2020 12:00 PM EST Dianne is a 59 y[address] pt of Dr. 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 Breast Cancer Summary The patient had routine screening mammography performed in January, with the finding of microcalcifications in the upper, outer left breast (axillary tail). Additional views confirmed the findings. Stereotactic biopsy confirmed DCIS. MRI for surgical planning revealed the known malignancy with noadditional ipsi or contralateral findings. No adenopathy noted. She opted for breast conservation. Wire localized lumpectomy with fascial excision was performed on 03/06/09. Pathology revealed: Specimen: Left breast, partial mastectomy (Specimen 1) Additional superficial caudal margin (specimen 2) Histologic Type: Ductal carcinoma in situ Grade: High (High, Intermediate, Low) Necrosis: Present (Present / Absent) Pattern(s): Solid Tumor Size: 2.8 cm by slide estimqate (0.4 cm in seven blocks) Resection Margins (RM): Distance, RM(s): <0.1 cm to deep margin. Additional superfical caudal margin free of DCIS Microcalcifications: Identified in DCIS Correlation Bx's/Cytology: [id number] Other findings: Fibrocystic disease with benign ductal hyperplasia and adenosis Estrogen/progestin receptors: Performed on Block A2 ER immunoreactivity: Positive (see Diagnostic Cervantes*) LA immunoreactivity: Positive (see Diagnostic Cervantes*) Of note, the fascia was taken at the deep margin. Dianne was treated with whole breast xrt . She had some central edema which is now better. She is not take endocrine therapy. Dianne returns in surgical follow up. No new breast masses. No breast pain. No headaches, dizziness, sob, cough, abd pain, lymphedema of the left arm, musculoskeletal pains. 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 On exam, Dianne is well appearing and in NAD. There is no cervical, supraclavicular or axillary adenopathy b/l. Left breast is without masses. Some telangiectasias around incision. Well healed upper, outer left breast. No masses in either breast. She has no abdominal or vertebral tenderness. Comprehensive Breast Program Surgery Follow Up Note Range of motion of surgical arm complete Lymphedema present No Cosmesis-surgeon reported Cosmesis-patient reported Excellent Excellent Local or regional recurrence No Contralateral cancer present No Distant recurrence present No Date of last follow up 02/24/20 Mammogram today: cat 1 A/P Dianne is doing well without evidence of recurrent disease. RTCin 1 year with b/l mammogram. She will call me with new issues if they arise. Dixie Saucedo APRN documented in this encounter Plan of Treatment Upcoming Encounters Date Type Specialty Care Team Description 11/14/2021 Office Visit Audiology Onelia Locke, AUD [facility] AUDIOLOGY DEPT [place], [place] [address] (Wo rk) documented as of this encounter Results Mammo Screening Cad and Mitch Bilateral (03/12/2021 1:43 PM EST) Anatomical Region Laterality Modality Breast Bilateral Mammography Specimen (Source) Anatomical Location Collection Method / Collectio n Time Received Time / Laterality Volume Narrative 03/13/2021 10:14 AM EST REASON FOR EXAM: Screening. History of left breast cancer. TECHNIQUE: CC and MLO views were obtaine d of both breasts. Computer aided detection was used. 3D tomosynthesis jefe ges were obtained in addition to 2D images. 17 pound weight loss. Comparison: The study is compared with p rior images. FINDINGS: Breast density: The breasts are extremel y dense, which lowers the sensitivity of mammography. There are no suspicious microcalcificati ons, masses, or areas of distortion. There are post treatment changes in the left breast. Overall breast volume has decreased consistent with the history of weight loss. CONCLUSION: No mammographic evidence of malignancy. RECOMMENDATION: Routine screening. BIRADS CATEGORY 2: BENIGN FINDINGS * ??Regular screening mammograms startin g between age 40 and 50 reduces the risk of from breast cancer. * ??All screening tests have both risks and benefits. These risks and benefits should be assessed for each individual p atient through discussion with their provider to determine their preferred [facility] cancer screening schedule. * ??Women should report any breast hitchcock es to a health care provider right away. * ??Some women, because of their family history, a genetic tendency, or other factors, should be screened with annual breast MRI as well as with mammograms. (The number of women who fall into this category is very small). Patients and health care providers should discuss eac h patients history to decide if earlier screening and/or breast MRI are appropri ate. * ??Screening should continue as long as a woman is in good health and is expected to live 10 years or longer. * ??Screening mammography may not detect 10-15% of breast cancers. Thank you for letting us participate in the care of this patient. ??If you are a health care provider and have any questi ons regarding this report, please contact the number below. ??For patients who have questions please contact the health care coordinator that requested your imaging first. ? [facility] ASSEMBLER WATCH TRAIN IMG MAMMO ORDERABLES documented in this encounter Visit Diagnoses Diagnosis History of breast cancer Personal history of malignant neoplasm o f breast Encounter for screening mammogram for br east cancer History of breast cancer Personal history of malignant neoplasm o f breast Encounter for screening mammogram for br east cancer documented in this encounter Care Teams Acid Dipper Relationship Specialty Start Date End Date Kristina Escobar APRN PCP - General 02/24/[address] [place] [address] documented as of this encounter
--- OUTSIDE RECORDS SUMMARY | 2021-10-04 02:50 | XMS_ITS | Encounter Summary ---
:1960 Author Organization [facility] [place] [address] Care Team Providers Name Role Phone Pedro PabloKristina katz APRN Primary Care Provider Encounter Details Date Type Department Care Team Description 04/25/2021 Office Visit Audiology at [facility] Onelia Locke, Mixed hearing loss, [facility] [place] [address] AUDIOLOGY DEPT [phone] [place], [place] [address] Social History Tobacco Use Types Packs/Day Years Used Date Never Smoker Smokeless Tobacco: Never Used Alcohol Use Standard Drinks/Week Comments No 0 (1 standard drink = 0.6 oz pure alcoho l) Sex Assigned at Date Recorded Not on file documented as of this encounter Progress Notes Onelia Locke, AUD - 04/25/2021 2:30 PM EST AUDIOLOGY Lupe Garza was seen today for a hearing aid check following a hearing re- evaluation. History is positive for mixed hearing loss in the right ear and sensorineural hearing loss in the left ear for which hearing aids are used for management. Please refer to the audiogram and associated note for details on otologic symptoms and hearing test results. Mary Grijalva, AuD Integrated Circuit Design Engineer, was present and assisted with this appointment. I was present throughout the patient's visit. Ms. Garza reported the following information: ??? The hearing aids are working well for her, but she has noticed that she???s been struggling a bit more in group settings due to the widespread use of masks. ??? 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 ??? She reports no mechanical concerns for the hearing aids, but is interested in discussing the option of pursuing new hearing aids. The following actions were taken: ?? Otoscopy showed clear ear canals bilaterally. ?? Both devices were cleaned and a listening check indicated that they were functioning. Domes and wax filters were replaced. ?? Hearing aid programming was adjusted by increasing gain 250-4000Hz bilaterally so that the aided responses approximated prescriptive targets for speech without exceeding MPO targets. Ms. Garza wassubjectively satisfied with the sound quality of the aids, and loudness discomfort was denied. ?? Ms. Garza expressed interest in pursuing new hearing aids. She was counseled regarding hearing aid styles, technology, and pricing options. In consideration of Ms. Garza's auditory demands and degree/configuration of hearing loss, it was agreed that Phonak Audeo P90 R ROCÍO hearing aids would be a ppropriate for her needs. ?? The New Hearing Instruments: Itemized Fees form was reviewed and signed by Ms. Garza, and insurance coverage for the instruments will be verified prior to the hearing aid fitting appointment. PLAN Binaural hearing aid fitting. Abhi Weldon [place] [address] ; HEARING AID(S): HEARING AID RIGHT LEFT Make/Model/Style Phonak Audeo V90 312-T Phonak Audeo V90 312-T Casing Color Petrol Petrol Serial Number [id number] Battery Size 312 312 Invoice number / date [id number] 03/09/14 [id number] 03/09/14 PROGRAM/SETTINGS Fitting Algorithm DSL-Adult Same Verification Method REM Same Programs Autosense OS Mute Autosense OS Mute Disabled Features Other HEARING AID WARRANTY Original Fit Date 04/04/14 04/04/14 Current Status 06/06/16 06/06/16 EARMOLD (if BTE GROVER) Lab Earmold / Slim tube / ROCÍO specifics Length 1 termite treater/ small closed dome Length 1 termite treater/ small closed dome Impression Date Invoice # ACCESSORIES Make/Model Color Serial Number Warranty date Invoice number/date documented in this encounter Plan of Treatment Upcoming Encounters Date Type Specialty Care Team Description 11/14/2021 Office Visit Audiology Onelia Locke AUD [facility] AUDIOLOGY DEPT [place], [place] [address] (Wo rk) documented as of this encounter Visit Diagnoses Diagnosis Mixed hearing loss, bilateral documented in this encounter Care Teams Evp Relationship Specialty Start Date End Date Kristina Escobar APRN PCP - General 02/24/[address] [place] [address] documented as of this encounter
--- OUTSIDE RECORDS SUMMARY | 2021-10-04 02:50 | XMS_ITS | Encounter Summary ---
:1960 Author Organization [facility] [place] [address] Care Team Providers Name Role Phone Pedro PabloKristina katz APRN Primary Care Provider Encounter Details Date Type Department Care Team Description 04/25/2021 [place] Visit [place] [facility] Gisel Yeung, Mixed hearing loss, [facility] [place] [address] AUDIOLOGY DEPT [phone] [place], [place] [address] Social History Tobacco Use Types Packs/Day Years Used Date Never Smoker Smokeless Tobacco: Never Used Alcohol Use Standard Drinks/Week Comments No 0 (1 standard drink = 0.6 oz pure alcoho l) Sex Assigned at Date Recorded Not on file documented as of this encounter Progress Notes Gisel Yeung AUD - 04/25/2021 1:45 PM EST Dianne Garza was seen for an audiologic evaluation. Please refer to the scanned audiogram in the electronic medical record for findings, impressions and recommendations. Abhi Bowen Clinical [place] [address] [phone] (fax) documented in this encounter Plan of Treatment Upcoming Encounters Date Type Specialty Care Team Description 11/14/2021 Office Visit Audiology Onelia Locke, AUD [facility] AUDIOLOG[facility] DEPT [place], [place] [address] (Wo rk) documented as of this encounter Procedures Procedure Name Priority Date/Time Associated Comments Diagnosis COMPREHENSIVE HEARING Routine 04/25/2021 1:46 PM Results for this TEST EST procedure are i n the results section. documented in this encounter Results Comprehensive hearing test (04/25/2021 1:46 PM EST) Specimen (Source) Anatomical Collection Method Collection Time Re ceived Time Location / / Volume Laterality 04/25/2021 1:46 PM EST Narrative AUD[facility] COMP - 04/25/2021 1:46 PM EST Hearing aid check to follow Procedure Note Unknown - 04/25/2021Formatting of this n ote might be different from the original. Hearing aid check to follow Unknown AUDIOLOGY SERVICES ORDERABLE S Performing Organization Address City/State/ZIP Code Phon e Number [facility]UD[facility] documented in this encounter Visit Diagnoses Diagnosis Mixed hearing loss, bilateral documented in this encounter Care Teams Wood Processing Worker Relationship Specialty Start Date End Date Kristina Escobar APRN PCP - General 02/24/[address] [place] [address] documented as of this encounter
--- OUTSIDE RECORDS SUMMARY | 2021-10-04 02:50 | XMS_ITS | Encounter Summary ---
:1960 [place] [address] Care Team Providers Name Role Phone Kristina Escobar APRN Primary Care Provider Encounter Details Date Type Department Care Team Description 05/17/2020 Ancillary Procedure Radiology Library at [facility] [address] [phone] Social History Tobacco Use Types Packs/Day Years Used Date Never Smoker Alcohol Use Standard Drinks/Week Comments No 0 (1 standard drink = 0.6 oz pure alcoho l) Sex Assigned at Date Recorded Not on file documented as of this encounter Plan of Treatment Upcoming Encounters Date Type Specialty Care Team Description 11/14/2021 Office Visit Audiology Onelia Locke, AUD [facility] AUDIOLOGY DEPT [place], [place] [address] (Wo rk) documented as of this encounter Procedures Procedure Name Priority Date/Time Associated Comments Diagnosis FILM LIBRARY STORAGE Routine 05/17/2020 12:00 AM Results for this ONLY ULTRASOUND EST procedure ar e in STUDY the results section. documented in this encounter Results Film Library- Storage Only Ultrasound Study (05/17/2020 12:00 AM EST) Specimen (Source) Anatomical Location Collection Method / Collectio n Time Received Time / Laterality Volume Narrative [facility] - 05/23/2020 3:17 PM EST This exam is auto-finalizing. It's purpo se is for storage only. Kristina Escobar APRN IMG FILM LIBRARY ORDERABLES Performing Organization Address City/State/ZIP Code Phon e Number [place], [place] documented in this encounter Visit Diagnoses Not on filedocumented in this encounter Care Teams Aviation Metalsmith Relationship Specialty Start Date End Date Kristina Escobar APRN PCP - General 02/24/[address] [place] [address] documented as of this encounter
--- OUTSIDE RECORDS SUMMARY | 2021-10-04 02:50 | XMS_ITS | Encounter Summary ---
:1960 Author Organization [facility] [place] [address] Care Team Providers Name Role Phone Shawn Kristina GANN Primary Care Provider Encounter Details Date Type Department Care Team Description 02/24/2020 Hospital Encounter Mammography/DXA at [facility] L, ETHNOARCHAEOLOGIST cancer [facility] [address] [place], [place] GENER[place] SURGERY [address] [place], [place] [phone] [facility] Social History Tobacco Use Types Packs/Day Years Used Date Never Smoker Alcohol Use Standard Drinks/Week Comments No 0 (1 standard drink = 0.6 oz pure alcoho l) Sex Assigned at Date Recorded Not on file documented as of this encounter Medications at Time of Discharge Medication Sig Dispensed Refills Start Date End Date cetirizine (ZYRTEC) 10 mg Take 10 mg by mouth 0 Tablet, Chewable daily. calcium-vitamin D3 600 Take by mouth 2 0 mg-10 mcg (400 unit) times daily. Tablet pirbuterol (MAXAIR 0 09/13/2009 AUTOHALER) 200 mcg/Inhalation inhaler fexofenadine (DEEP) 180 0 0 mg tablet multivitamin (THERAGRAN) 0 09/13/2009 tablet ubiquinone (COENZYME Q10) Take by mouth. 0 06/24/2021 10 mg Capsule UNABLE TO FIND Take 1 capsule by 0 mouth daily. [place] GLUCOSAMINE HCL/CHONDR VALLE 0 09/13/2009 06/21/2020 A NA (GLUCOSAMINE-CHONDROITIN) 750-600 mg Tab acetaminophen (TYLENOL) 0 09/13/2009 0 06/21/2020 325 mg tablet documented as of this encounter Plan of Treatment Upcoming Encounters Date Type Specialty Care Team Description 11/14/2021 Office Visit Audiology Onelia Locke L, AUD [facility] AUDIOLOGY DEPT [place], [place] [address] (Wo rk) documented as of this encounter Procedures Procedure Name Priority Date/Time Associated Diagnosis Comme nts MAMMO SCREENING CAD Routine 02/24/2020 10:56 AM History of arsen ast Results for this AND SAAD BILATERAL EST cancer procedure are in the results section. documented in this encounter Results Mammo Screening Cad and Saad Bilateral (02/24/2020 10:56 AM EST) Anatomical Region Laterality Modality Breast Bilateral Mammography Specimen (Source) Anatomical Location Collection Method / Collectio n Time Received Time / Laterality Volume Narrative 02/24/2020 11:23 AM EST BILATERAL MAMMOGRAPHY REASON FOR EXAM: Screening TECHNIQUE: CC and MLO views were obtaine d of each breast using standard 2-D mammography as well as 3-D tomosynth esis. Computer aided detection was used. This is compared with prior images . FINDINGS: The breasts are extremely dens e, which lowers the sensitivity of mammography. There are no suspicious china rocalcifications, masses, or areas of distortion. The pattern is stable. CONCLUSION: No mammographic evidence of malignancy. RECOMMENDATION: Regular screening mammograms starting be tween age 40 and 50 reduces the risk of from breast cancer. All screening tests have both risks and benefits. These risks and benefits should be assessed for each individual p atient through discussion with their provider to determine their prefer red breast cancer screening schedule. Women should report any breast changes t o a health care provider right away. Some women, because of their family hist ory, a genetic tendency, or other factors, should be screened with annual breast MRI as well as with mammograms. (The number of women who fal l into this category is very small). Patients and health care provide rs should discuss each patient? s history to decide if earlier screening a nd/or breast MRI are appropriate. Screening should continue as long as a angelia jiang is in good health and is expected to live 10 years or longer. Screening mammography may not detect 10- 15% of breast cancers. A result letter has been sent to this pa tienisha by [facility]. BIRADS CATEGORY 1: NEGATIVE [facility] ETHNOARCHAEOLOGIST IMG MAMMO ORDERABLES documented in this encounter Visit Diagnoses Diagnosis History of breast cancer Personal history of malignant neoplasm o f breast documented in this encounter Care Teams Crusher Relationship Specialty Start Date End Date Kristina Escobar APRN PCP - General 02/24/[address] [place] [address] documented as of this encounter
--- OUTSIDE RECORDS SUMMARY | 2021-10-04 02:50 | XMS_ITS | Encounter Summary ---
:1960 Author Organization [place] [address] Care Team Providers Name Role Phone Kristina Escobar APRN Primary Care Provider Encounter Details Date Type Department Care Team Description 09/26/2021 Telephone Audiology at [facility] [place] [address] Social History Tobacco Use Types Packs/Day Years Used Date Never Smoker Smokeless Tobacco: Never Used Alcohol Use Standard Drinks/Week Comments No 0 (1 standard drink = 0.6 oz pure alcoho l) Sex Assigned at Date Recorded Not on file documented as of this encounter Miscellaneous Notes Telephone Encounter - April Mendoza - 09/26/2021 1:08 PM EDT Patient called today to see about moving [facility] w/ Onelia Locke to a or Thursday. Appt moved to 11/14 patient aware of new appt day/time documented in this encounter Plan of Treatment Upcoming Encounters Date Type Specialty Care Team Description 11/14/2021 Office Visit Audiology Onelia Locke, AUD [facility] AUDIOLOGY DEPT [place], [place] [address] (Wo rk) documented as of this encounter Visit Diagnoses Not on filedocumented in this encounter Care Teams Field Auto Appraiser Relationship Specialty Start Date End Date Kristina Escobar APRN PCP - General 02/24/20 [address] [facility] [address] [facility] [address] [place] [address] documented as of this encounter
--- OUTSIDE RECORDS SUMMARY | 2021-10-04 02:50 | XMS_ITS | Encounter Summary ---
:1960 Author Organization [facility] Address [address] [place] [address] Care Team Providers Name Role Phone Kristina Escobar APRN Primary Care Provider Encounter Details Date Type Department Care Team Description 06/24/2021 Office Visit Endocrinology at [facility] Kyle Escalante, Thyroid nodule; [facility] Jumana Kirk MD Osteopenia, unspecified location; [facility] [place] [address] CENTER [phone] ENDOCRINOLOGY DEPT. [place], [place] [address] Social History Tobacco Use Types [...] ??F) 06/24/2021 4:25 PM EDT Respiratory Rate - - Oxygen Saturation 100% 06/24/2021 4:25 PM EDT Inhaled Oxygen Concentration - - Weight 52.9 kg (116 lb 9.6 oz) 06/24/2021 4:25 PM EDT Height 156.2 cm (5' 1.5) 06/24/2021 4:25 PM EDT Body Mass Index 21.67 06/24/2021 4:25 PM EDT documented in this encounter Patient Instructions Patient InstructionsJumana Escalante MD - 06/24/2021 5:25 PM EDT Office Thyroid Ultrasound: Date: 06/24/2021 Indication: Abnormal thyroid function test with h/o thyroid nodule at OSH - To follow the nodule size Ref Range & Units 4 d ago Thyroperoxidase Ab <=60 U/mL 100 High TSH is trending up from 1.45 (05/31/20) to 2/03 (06/20/21). Target TSH 0.3-2.0 for nodule suppression Comparison: [facility] Radiology US on 05/17/20 Procedure: Real-time ultrasonography limited to the thyroid gland and lateral neck area with and without color doppler were obtained using a G3 Focus 400 US machine and an HFL38/15-6 broadband linear array transducer. All measurements are given as Longitudinal x Anterior-Posterior (A-P) x Transverse The right lobe measures 4.9x1.4x1.5 cm (was 4.8x1.4x1.8 cm on 05/17/20) The left lobe measures 3.1x1.0x1.1 cm (was 5.0x1.5x0.9 cm on 05/17/20) Isthmus thickness 0.3 cm (A-P dimension) The overall thyroid gland is nicely homogeneous with normal vascularity. No goiter. There is small isoechoic thyroid nodule in the right lower pole of 1.1x0.7x0.8 cm (was1.2x0.6x1.0 cmon 05/17/20 at [facility]). The nodule has distinct borders, micro-calcifications, and some internal vascularity. Impression: Normal thyroid gland since with a small mildly suspicious nodule in the right lower polewhich is stable in size over a year. Rec monitoring thyroid function and follow-up in 6-12 months US study for possible FNA biopsy if thenodule is enlarging in size. To start low dose levothyroxine 12.5-25 mcg daily to keep TSH low normal range at 0.3-1.0 if possible. Jumana Escalante MD, PhD, FACE, FACP documented in this encounter Progress Notes Jumana Escalante MD - 06/24/2021 4:30 PM EDT Office Thyroid Ultrasound: Date: 06/24/2021 Indication: Abnormal thyroid function test with h/o thyroid nodule at OSH - To follow the nodule size Ref Range & Units 4 d ago Thyroperoxidase Ab <=60 U/mL 100??High?? TSH is trending up from 1.45 (05/31/20) to 2/03 (06/20/21). Target TSH 0.3-2.0 for nodule suppression Comparison: [facility] Radiology US on 05/17/20 Procedure: Real-time ultrasonography limited to the thyroid gland and lateral neck area with and without color doppler were obtained using a G3 Focus 400 US machine and an HFL38/15-6 broadband linear array transducer. All measurements are given as Longitudinal x Anterior-Posterior (A-P) x Transverse The right lobe measures 4.9x1.4x1.5 cm (was 4.8x1.4x1.8 cm on 05/17/20) The left lobe measures 3.1x1.0x1.1 cm (was 5.0x1.5x0.9 cm on 05/17/20) Isthmus thickness 0.3 cm (A-P dimension) The overall thyroid gland is nicely homogeneous with normal vascularity. No goiter. There is small isoechoic thyroid nodule in the right lower pole of 1.1x0.7x0.8 cm (was1.2x0.6x1.0 cmon 05/17/20 at [facility]). The nodule has distinct borders, micro-calcifications, and some internal vascularity. Impression: Normal thyroid gland since with a small mildly suspicious nodule in the right lower polewhich is stable in size over a year. Rec monitoring thyroid function and follow-up in 6-12 months US study for possible FNA biopsy if thenodule is enlarging in size. To start low dose levothyroxine 12.5-25 mcg daily to keep TSH low normal range at 0.3-1.0 if possible. Jumana Escalante MD, PhD, FACE, FACP documented in this encounter Miscellaneous Notes Addendum Note - Jumana Escalante MD - 06/24/2021 4:30 PM EDT Addended by: JUMANA ESCALANTE on: 06/24/2021 05:28 PM Modules accepted: Orders documented in this encounter Plan of Treatment Upcoming Encounters Date Type Specialty Care Team Description 11/14/2021 Office Visit Audiology Onelia Locke, AUD [facility] AUDIOLOGY DEPT [place], [place] [address] (Wo rk) Scheduled Orders Name Type Priority Associated Diagnoses Order S chedule TSH Lab Routine Thyroid nodule Every 6 weeks for 6 Occurrences Karri's thyroiditis star ting 06/24/2021 until 06/24/2022 documented as of this encounter Visit Diagnoses Diagnosis Thyroid nodule Nontoxic uninodular goiter Osteopenia, unspecified location Karri's thyroiditis Chronic lymphocytic thyroiditis documented in this encounter Care Teams Manager Industrial Relationship Specialty Start Date End Date Kristina Escobar APRN PCP - General 02/24/[address] [place] [address] documented as of this encounter
--- OUTSIDE RECORDS SUMMARY | 2021-10-04 02:50 | XMS_ITS | Encounter Summary ---
:1960 Author Organization [facility] [place] [address] Care Team Providers Name Role Phone Shawn Kristina GANN Primary Care Provider Encounter Details Date Type Department Care Team Description 03/12/2021 Hospital Encounter Mammography/DXA at [facility]; [facility], BLAST HOLE DRILLER Encounter for screening mammogram for br east cancer [facility] [address] [place] GENERAL SURGERY [address] [place], [place] [phone] [facility] Social History Tobacco Use Types Packs/Day Years Used Date Never Smoker Smokeless Tobacco: Never Used Alcohol Use Standard Drinks/Week Comments No 0 (1 standard drink = 0.6 oz pure alcoho l) Sex Assigned at Date Recorded Not on file documented as of this encounter Medications at Time of Discharge Medication Sig Dispensed Refills Start Date End Date cholecalciferol, Vitamin Take 1 capsule by 0 06/04 D3, 25 mcg (1,000 unit) mouth daily. Capsule cetirizine (ZYRTEC) 10 mg Take 10 mg by mouth 0 Tablet, Chewable daily. calcium-vitamin D3 600 Take by mouth 2 0 mg-10 mcg (400 unit) times daily. Tablet pirbuterol (MAXAIR 0 09/13/2009 AUTOHALER) 200 mcg/Inhalation inhaler fexofenadine (DEEP) 0 09/13/2009 180 mg tablet multivitamin (THERAGRAN) 0 09/13/2009 tablet ubiquinone (COENZYME Q10) Take by mouth. 0 06/24/2021 10 mg Capsule documented as of this encounter Plan of Treatment Upcoming Encounters Date Type Specialty Care Team Description 11/14/2021 Office Visit Audiology Onelia Locke, AUD [facility] AUDIOLOGY DEPT [place], [place] [address] (Wo rk) documented as of this encounter Procedures Procedure Name Priority Date/Time Associated Diagnosis Comme nts MAMMO SCREENING CAD Routine 03/12/2021 1:43 [address] Results for this AND SAAD BILATERAL EST cancer procedure are in Encounter for the results screening mammogram section. for breast cancer documented in this encounter Results Mammo Screening Cad and Saad Bilateral (03/12/2021 1:43 PM EST) Anatomical Region [...] with their provider to determine their preferred east cancer screening schedule. * ??Women should report [...] who have questions please contact the health medical care evaluation specialist that requested your imaging first. ? Electronically signed by: Quin faustin MD, [facility] ([phone]), at 03/13/2021 10:14 AM [facility] APRN IMG MAMMO ORDERABLES documented in this encounter Visit Diagnoses Diagnosis History of breast cancer Personal history of malignant neoplasm o f breast Encounter for screening mammogram for br east cancer documented in this encounter Care Teams Roll Skinner Relationship Specialty Start Date End Date Kristina Escobar APRN PCP - General 02/24/[address] [place] [address] documented as of this encounter
--- OUTSIDE RECORDS SUMMARY | 2021-10-04 02:50 | XMS_ITS | Encounter Summary ---
:1960 Author Organization [facility] [place] [address] Care Team Providers Name Role Phone Pedro PabloKristina katz APRN Primary Care Provider Encounter Details Date Type Department Care Team Description 07/25/2021 Office Visit Audiology at [facility] Onelia Locke, Mixed hearing loss, [facility] [place] [address] AUDIOLOGY DEPT [phone] [place], [place] [address] Social History Tobacco Use Types Packs/Day Years Used Date Never Smoker Smokeless Tobacco: Never Used Alcohol Use Standard Drinks/Week Comments No 0 (1 standard drink = 0.6 oz pure alcoho l) Sex Assigned at Date Recorded Not on file documented as of this encounter Progress Notes Onelia Locke, AUD - 07/25/2021 2:30 PM EDT AUDIOLOGY HEARING AID CHECK Dianne Garza returns today after fitting of binaural. History is positive for bilateral mixed hearing loss. Ms. Garza reported the following information: ?? She hated the hearing aids when she first started using them. She felt she was hearing more lakhani and more high pitch noises compared to her older devices. However, she has gradually started to get used to the new sound quality ?? She has not had much of an opportunity to use them consistently at work, as she was out for 10 work days due to Covid-19. ?? She continues to have difficulty understanding speech over the landline work phone. She no longertakes them out (she always took out her old hearing aids), but it can still be challenging. ?? She just purchased a new Android phone. Streaming from the phone to the hearing aids is great. ?? She recently when out to a restaurant and was able to keep the hearing aids in, and she felt she heard better than she used to with her older hearing aids. She also understood better at a work meeting. The following actions were taken: ?? Otoscopy showed clear ear canals and no signs of irritation from the hearing aids. ?? Given that Ms. Garza is still adjusting to the new sound quality of the hearing aids, and she was not able to use them in her typical listening environments due to having Covid-19, it is recommended to schedule a follow-up visit in 2-3 weeks. ?? Ms. Garza could not remember the make and model of her new Android phone. She has a dedicated landline phone at her work desk, and she was counseled to find out if landline phone calls can be routed to her cell phone, so that she can stream the calls directly to the hearing aids. Plan: Return to clinic in 2-3 weeks for hearing aid check. Abhi Weldon [place] [address] ; AMPLIFICATION EQUIPMENT LIST: HEARING AID RIGHT LEFT Make/Model/Style Phonak Audeo P90 R Phonak Audeo P90 R Casing Color Black Black Serial Number [id number] Battery Size Rechargeable Rechargeable Invoice number/date [id number] 06/12/2021 [id number] 06/12/2021 Other Comments ? PROGRAM/SETTINGS ? Fitting [...] ROCÍO / Dome specifics Length 1 M antisqueak filler/ cap dome ?? Length 1 M antisqueak filler/ capdome ?? Impression Date ? Invoice number/date ? Other Comments ? ACCESSORIES ? Make/Model (color) ? Serial Number ? Warranty date ? Invoice number/date ? Settings ? Other Comments ? HEARING AID(S): HEARING AID ?? RIGHT ?? LEFT ?? Make/Model/Style ?? Phonak Audeo V90 312-T ?? Phonak Audeo V90 312-T ?? Casing Color ?? Petrol ?? Petrol ?? Serial Number ?? [id number] ?? [id number] ?? Battery Size ?? 312 ?? 312 ?? Invoice number / date ?? [id number] 03/09/14 ?? [id number] 03/09/14 ?? PROGRAM/SETTINGS ? Fitting Algorithm ?? [...] tube / ROCÍO specifics ?? Length 1 antisqueak filler/ small closed dome ?? Length 1 antisqueak filler/ small closed dome ?? Impression Date ? Invoice # ? ACCESSORIES ? Make/Model ? Color ? Serial Number ? Warranty date ? Invoice number/date? documented in this encounter Plan of Treatment Upcoming Encounters Date Type Specialty Care Team Description 11/14/2021 Office Visit Audiology Onelia Locke AUD [facility] [place] [address] (Wo rk) documented as of this encounter Visit Diagnoses Diagnosis Mixed hearing loss, bilateral documented in this encounter Care Teams Certified Pharmacy Technician Relationship Specialty Start Date End Date Kristina Escobar APRN PCP - General 02/24/[address] [place] [address] documented as of this encounter
--- OUTSIDE RECORDS SUMMARY | 2021-10-04 02:51 | XMS_ITS | Encounter Summary ---
:1960 Author Organization [facility] [place] [address] Care Team Providers Name Role Phone Jimmy Bonner MD Primary Care Provider Reason for Visit Reason Comments Hearing Loss States she has bilateral hea ring aids due to hearing loss, no pain, had an audio exam recently and i s here to establish care Encounter Details Date Type Department Care Team Description 01/09/2016 Office Visit Otolaryngology at [facility] Tami Fajardo MD Mixed conductive and [facility] sensorine ural hearing [place] [address] OTOLARYNGOLOGY [phone] [place] [address] Social History Tobacco Use Types Packs/Day Years Used Date Never Smoker Alcohol Use Standard Drinks/Week Comments No 0 (1 standard drink = 0.6 oz pure alcoho l) Sex Assigned at Date Recorded Not on file documented as of this encounter Last Filed Vital Signs Vital Sign Reading Time Taken Comments Blood Pressure 116/75 01/09/2016 3:02 PM EDT Pulse 85 01/09/2016 3:02 PM EDT Temperature - - Respiratory Rate - - Oxygen Saturation - - Inhaled Oxygen Concentration - - Weight 59 kg (130 lb) 01/09/2016 3:02 PM EDT Height 157.5 cm (5' 2) 01/09/2016 3:02 PM EDT Body Mass Index 23.78 01/09/2016 3:02 PM EDT documented in this encounter Progress Notes Tami Fajardo MD - 01/09/2016 3:00 PM EDT [facility] Otolaryngology - Head and Neck Surgery Tami Fajardo MD 01/09/16 3:14 PM [place] [address] Office Patient Name: Dianne Garza Date of : 1960 PCP: JIMMY BONNER MD Chief Complaint: mixed hearing loss History of Present Illness: Dianne Garza is a 55 y.o. year old female who was seen today in consultation for mixed hearing loss. Patient was evaluated by Audiology here and found to have a mixed hearing loss. She has a family history of hearing loss: both her mother and a maternal cousin began having hearing loss in their forties. She has been using hearing aids for the past several months and is tolerating these well. No vertigo, no dizziness. No history of ear infections. No prior otologic history and otherwise doing well. 10 point Review of Systems was normal except for pertinent positives and negatives included in the History of Present Illness. Past Medical and Surgical History Patient Active Problem List Diagnosis Code ??? Breast CA C50.919 ??? 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 Calcium Carbonate-Vitamin D3 (CALCIUM WITH VITAMIN D) 600 mg(1,500mg) -400 unit Tab Take by mouth 2 times daily. ??? UNABLE TO FIND Take 1 capsule by mouth daily. Brevail ??? pirbuterol (MAXAIR AUTOHALER) 200 mcg/Inhalation inhaler ??? fexofenadine (DEEP) 180 mg tablet ??? multivitamin (THERAGRAN) tablet ??? acetaminophen (TYLENOL) 325 mg tablet ??? GLUCOSAMINE HCL/CHONDR VALLE A NA (GLUCOSAMINE-CHONDROITIN) 750-600 mg Tab (Patient not taking: No sig reported) No current facility-administered medications on file prior to visit. Allergies: Latex and Fish containing products Surgical History: Past Surgical History Procedure Laterality Date ??? Hysterectomy @ age 46 yrs due to fibroids. ??? Breast biopsy Left 01/18/2009 DCIS ??? 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 Breast Cancer Mother ??? Lung Cancer Mother ??? Breast Cancer Other cousin at age 62 ??? Breast Cancer Maternal Aunt ??? Breast Cancer Paternal Aunt ??? Breast Cancer Cousin ??? Breast Cancer Cousin Social History: Lives in [place] [id number] Social History Social History ??? Marital status: Spouse name: N/A ??? Number of children: N/A ??? Years of education: N/A Occupational History ??? Not on file. Social History Main Topics ??? Smoking status: Never Smoker ??? Smokeless tobacco: Not on file ??? Alcohol use No ??? Drug use: Not on file ??? Sexual activity: Not on file Other Topics Concern ??? Not on file Social History Narrative Physical Exam Temperature: Heart Rate: 85 Blood Pressure: 116/75 Respiratory Rate: SpO2: General: Age appropriate, healthy appearing, well-groomed, independently mobile. Communicates easily, speech clear, voice is strong. Awake, alert, and oriented to person, place and time. Affect appropriate. Head and Face: Head is normocephalic, atraumatic. Facial resting tone symmetric. Eyes: Conjugate gaze, ocular motility intact bilaterally. PERRL. Neurologic: Cranial Nerves II-XII grossly intact and symmetric. Ears: External ear and ear canal are without deformity. Tympanic membranes clear bilaterally with normal mobility on pneumatic otoscopy. Tuning forks: Nuñez lateralizes slightly to the right, but air>bone bilaterally on Rinne. Nose: External nose is midline without deformity or lesion. Anterior rhinoscopy reveals a straight septum, healthy mucosa, turbinates normal in size. Oral: There are no visible or palpable buccal, gingival, lingual, or palatal lesions. The floor of mouth is soft and flat. Dentition is in good repair. Oropharynx: Symmetric without tonsillar pathology. No other concerning lesions or masses Larynx: No stridor, no hoarseness. External laryngeal structures normal to palpation. Face and sinuses are non tender. Salivary glands are soft, non tender, without palpable masses. No temporomandibular joint grinding or locking. Neck: Symmetric. No scars, palpable masses, or crepitus. Midline trachea. Thyroid normal in size, non tender, no palpable mass. Lymphatic: no palpable cervical lymphadenopathy. Skin: Good skin turgor, no pallor, no icterus. Extremities: No gross deformities, no peripheral edema. Labs and Imaging Audiogram was reviewed: She has a symmetric moderate mixed hearing loss with an air-bone gap of up to 10db in the mid ranges. Tympanograms were normal bilaterally. ASSESSMENT & RECOMMENDATIONS Dianne Garza is a 55 y.o. female with mixed hearing loss. Possible that the conductive component could be due to otosclerosis although there is no Carhart's notch, but given the family history this is a possibility. Given her tuning fork exam, though, I don't think she would benefit from any middleear surgery. Recommendations: 1. She will continue to follow with audiology and return to see us if there are any changes or worsening in her hearing no longer amenable to hearing aids. Tami Fajardo MD Otolaryngology - Head and Neck Surgery 01/09/16 3:14 PM documented in this encounter Plan of Treatment Upcoming Encounters Date Type Specialty Care Team Description 11/14/2021 Office Visit Audiology Onelia Locke, [facility] AUDIOLOGY DEPT [place], [place] [address] (Wo rk) documented as of this encounter Visit Diagnoses Diagnosis Mixed conductive and sensorineural heari ng loss Mixed hearing loss, unspecified documented in this encounter Care Teams Lace Winder Relationship Specialty Start Date End Date Jimmy Bonner MD PCP - General 02/26/10 04/05/19 documented as of this encounter
--- OUTSIDE RECORDS SUMMARY | 2021-10-04 02:51 | XMS_ITS | Encounter Summary ---
:1960 Author Organization [facility] [place] [address] Care Team Providers Name Role Phone Francisco Javier Bonner MD Primary Care Provider Reason for Visit Reason Comments Radiation Follow-up breast cancer Encounter Details Date Type Department Care Team Description 05/06/2012 Follow-Up Radiation Oncology at [place], Froylan Cheney APRN Breast cancer (Primary [address] Felecia) [address] [place] [address] [place] [address] [id number] (Wo rk) Social History Tobacco Use Types Packs/Day Years Used Date Never Smoker Alcohol Use Standard Drinks/Week Comments No 0 (1 standard drink = 0.6 oz pure alcoho l) Sex Assigned at Date Recorded Not on file documented as of this encounter Last Filed Vital Signs Vital Sign Reading Time Taken Comments Blood Pressure 127/85 05/06/2012 2:12 PM EST Pulse 89 05/06/2012 2:12 PM EST Temperature 36.8 ??C (98.2 ??F) 05/06/2012 2:12 PM EST Respiratory Rate 16 05/06/2012 2:12 PM EST Oxygen Saturation 99% 05/06/2012 2:12 PM EST Inhaled Oxygen Concentration - - Weight 60.6 kg (133 lb 8 oz) 05/06/2012 2:12 PM EST Height 157.5 cm (5' 2.01) 05/06/2012 2:12 PM EST Body Mass Index 24.41 05/06/2012 2:12 PM EST documented in this encounter Patient Instructions Patient InstructionsSandy Tijerina APRN - 05/06/2012 2:46 PM EST Dianne beltran are doing very well at this time with no evidence of disease. Please have the Vit D level drawn and we will then discuss Vit D supplementation. Continue with the exercise you are doing. Call if you have any questions or concerns documented in this encounter Progress Notes Sandy Tijerina APRN - 05/06/2012 2:34 PM EST Subjective: Patient ID: Dianne Garza is a very pleasant 51 y.o. female who was treated with radiation therapyfor left breast cancer. She completed treatment on 05/30/2009 and is in clinic for scheduled follow up. HPI At age 49 y/o DX of L breast for stage 0, pTis cN0 M0 DCIS high gr, for which she underwent partial mastectomy,03/06/09 w/wire loc. A core of tissue circumferential to the wire was excised inclusive of the underlying pectoralis fascia due to the depth of the lesion. Specimen radiograph showed the suspicious area to be included in the specimen. Path: DICS, high gr, + necrosis, solid pattern, 2.8 cm, RM < 0.1 cm to deep margin, additional superficial caudal margin free of DCIS, ERPR+. XRT post partial mastectomy as follows under the care of Dr Maida Álvarez: Radiation therapy detail: Location: left breast Total dose: 6640 cGy Fraction dose: 180 cGy for 28 fractions followed by XRT to surgical bed at 200 cGy for 8 fractions Dates of treatment: 04/09/2009 through 05/30/2009 Total fractions: 33 She declined hormonal tx. Current Outpatient Prescriptions on File Prior to Visit Medication Sig Dispense Refill ??? UNABLE TO FIND Take 1 capsule by mouth daily. Brevail ??? fexofenadine (DEEP) 180 mg tablet ??? multivitamin (THERAGRAN) tablet ??? GLUCOSAMINE HCL/CHONDR VALLE A NA (GLUCOSAMINE-CHONDROITIN) 750-600 mg Tab ??? pirbuterol (MAXAIR AUTOHALER) 200 mcg/Inhalation inhaler ??? acetaminophen (TYLENOL) 325 mg tablet Interim History: Dianne reports that she is doing well at this time. She is very active with a regular exercise regime. She denies has no concerns related to her breast other than occasional edema whichis managed with massage. She has no lymphedema. She has good arm/shoulder flexibility which improvedafter doing a lot of swimming last summer. She has no persistent cough, no persistent headache, no pain. She has has hot flashes and finds that an OTC medication Brevail that has concentrated flax seed oilhas been very helpful. She is S/P hysterectomy five years ago. She does not take calcium or vitamin D at this time. Review of Systems Constitutional: Negative for fever, activity change, appetite change, fatigue and unexpected weight change. Hot flashes controlled with over the counter med with concentrated flax seed oil--Brevail once a day HENT: Negative. Eyes: Negative. Respiratory: Negative for cough, chest tightness, shortness of breath and wheezing. Cardiovascular: Negative for chest pain and leg swelling. Gastrointestinal: Negative. Genitourinary: Negative. Musculoskeletal: Negative. Skin: Negative. Neurological: Negative for dizziness, weakness, light-headedness and headaches. Hematological: Negative. Psychiatric/Behavioral: Negative. Filed Vitals: 05/06/12 1412 BP: 127/85 Pulse: 89 Temp: 36.8 ??C (98.2 ??F) TempSrc: Oral Resp: 16 Height: 157.5 cm (5' 2.01) Weight: 60.555 kg (133 lb 8 oz) SpO2: 99% Objective: Physical Exam Vitals reviewed. Constitutional: She is oriented to person, place, and time. She appears well- developed and well-nourished. No distress. HENT: Head: Normocephalic and atraumatic. Eyes: Conjunctivae and EOM are normal. No scleral icterus. Neck: Normal range of motion. Neck supple. Cardiovascular: Normal rate, regular rhythm and normal heart sounds. Exam reveals no gallop and no friction rub. No murmur heard. Pulmonary/Chest: Effort normal and breath sounds normal. No respiratory distress. She has no wheezes. She has no rales. She exhibits no tenderness. Abdominal: Soft. Bowel sounds are normal. She exhibits no distension and no mass. There is no tenderness. There is no rebound and no guarding. Musculoskeletal: Normal range of motion. She exhibits no edema and no tenderness. No spine tenderness, No rib tenderness Lymphadenopathy: Head (right side): No submental, no submandibular, no tonsillar, no preauricular, no posterior auricular and no occipital adenopathy present. Head (left side): No submental, no submandibular, no tonsillar, no preauricular, no posterior auricular and no occipital adenopathy present. She has no cervical adenopathy. She has no axillary adenopathy. Right: No supraclavicular adenopathy present. Left: No supraclavicular adenopathy present. Neurological: She is alert and oriented to person, place, and time. She exhibits normal muscle tone.Coordination normal. Skin: Skin is warm and dry. No rash noted. She is not diaphoretic. No erythema. No pallor. Psychiatric: She has a normal mood and affect. Her behavior is normal. Judgment and thought content normal. Breast___X_ no nipple discharge, no dryness, no erythema. No masses, no lymphedema left breast, no lymphedema left arm. Treated site: ____Right or _X___Left, __X__Breast or Chest wall Telangectasias: __X__None, ____Few; Moderate; Many and confluent Hypopigmentation: _X___None; ____Slight or localized; ____Marked or generalized Hyperpigmentation: __X__None; ____Slight or localized; ____Marked or generalized Fibrosis: None; __X___Increased density; ____Marked increased density + retraction; ____ Very marked Dry skin: __XX__None; ____Asymptomatic; symptomatic; Interferes with ADL Cosmetic Result: Excellent; __X___Good;____ Fair; ____Poor 11/06/2011 BILATERAL MAMMOGRAPHY REASON FOR EXAM: Screening, H/O Left breast cancer TECHNIQUE: Cranio-caudal (CC) and mediolateral oblique (MLO) views of both breasts obtained with direct digital capture. The exam was evaluated by CAD Version 8.3.17. In addition to the routine 2D imaging this exam was also performed with 3D tomographic imaging in MLO and CC projections. FINDINGS: This is a negative mammogram (ACR Category 1). There is a stable fibroglandular pattern without significant change as compared to prior studies. There is no mammographic evidence of cancer. There are post-radiation changes in the Left breast. There are post-surgical changes in the Left breast. The breasts are heterogeneously dense which may limit mammographic sensitivity for the detection of malignancy. CONCLUSION This is a NEGATIVE mammogram (ACR Category 1). Routine screening mammography is recommended with thefrequency dependent on the patient's age and breast cancer risk factors. Assessment and Plan: Left breast cancer: Ms Garza is doing well at this time with FRANCISCO. She was encouraged to continue her exercise regime and excellent weight control given known benefits of this in cancer control. She continues with exercises taught by Bea Ingram in PT to manage occasional mild breast edema. She is to have her next mammogram in November of 2012. We will have a vitamin D level done given that she is mostlikely post menopausal and given the known benefit of vitamin D at levels of at least 35 in women who have a history of breast cancer. Based on results we will advise her regarding supplementation. We will otherwise see her again in one year. She is to call if she has any questions or concerns. documented in this encounter Procedure Notes Provider, Scanning - 05/07/2012 3:27 PM ESTAssociated Order(s): SCAN DOC: LAB documented in this encounter Plan of Treatment Upcoming Encounters Date Type Specialty Care Team Description 11/14/2021 Office Visit Audiology Onelia Locke, [facility] AUDIOLOGY [place], [place] [address] (Wo rk) documented as of this encounter Procedures Procedure Name Priority Date/Time Associated Diagnosis Comme nts LAB SCAN 05/07/2012 3:27 PM Results f or this EST procedure are i n the results section . documented in this encounter Results SCAN DOC: LAB (05/07/2012 3:27 PM EST) Narrative This result has an attachment that is no t available. Transcriptions Provider, Scanning - 05/07/2012 3:27 PM EST Scanning Provider MEDIA MGR SCAN EXT ORDR/RSLT documented in this encounter Visit Diagnoses Diagnosis Breast cancer - Primary Malignant neoplasm of breast (female), u nspecified site documented in this encounter Care Teams Collections Attorney Relationship Specialty Start Date End Date Francisco Javier Bonner MD PCP - General 02/26/10 04/05/19 documented as of this encounter
--- OUTSIDE RECORDS SUMMARY | 2021-10-04 02:51 | XMS_ITS | Encounter Summary ---
:1960 Author Organization [facility] [place] [address] Care Team Providers Name Role Phone Francisco Javier Bonner MD Primary Care Provider Encounter Details Date Type Department Care Team Description 11/23/2013 Hospital [place] [address] Social History Tobacco Use Types Packs/Day Years Used Date Never Smoker Alcohol Use Standard Drinks/Week Comments No 0 (1 standard drink = 0.6 oz pure alcoho l) Sex Assigned at Date Recorded Not on file documented as of this encounter Medications at Time of Discharge Medication Sig Dispensed Refills Start Date End Date calcium-vitamin D3 600 Take by mouth 2 0 mg-10 mcg (400 unit) times daily. Tablet pirbuterol (MAXAIR 0 09/13/2009 AUTOHALER) 200 mcg/Inhalation inhaler fexofenadine (DEEP) 180 0 0 mg tablet multivitamin (THERAGRAN) 0 09/13/2009 tablet UNABLE TO FIND Take 1 capsule by 0 mouth daily. Brevail GLUCOSAMINE HCL/CHONDR VALLE 0 09/13/2009 06/21/2020 A NA (GLUCOSAMINE-CHONDROITIN) 750-600 mg Tab acetaminophen (TYLENOL) 0 09/13/2009 0 06/21/2020 325 mg tablet documented as of this encounter Plan of Treatment Upcoming Encounters Date Type Specialty Care Team Description 11/14/2021 Office Visit Audiology Onelia Locke, [facility] [place], [place] [address] (Wo rk) documented as of this encounter Procedures Procedure Name Priority Date/Time Associated Diagnosis Comme nts MAMMO SCREENING CAD Routine 11/23/2013 9:18 AM Re sults for this BILATERAL EDT procedure are i n the results section. documented in this encounter Results Mammo digital bilateral Screening with CAD (11/23/2013 9:18 AM EDT) Anatomical Region Laterality Modality Breast Bilateral Mammography Specimen (Source) Anatomical Collection Method Collection Time Re ceived Time Location / / Volume Laterality 11/23/2013 9:18 AM EDT Narrative 11/26/2013 6:47 PM EDT BILATERAL MAMMOGRAPHY ?? REASON FOR EXAM: Screening ?? TECHNIQUE: Cranio-caudal (CC) and mediol ateral oblique (MLO) views of both breasts obtained with direct digital cap ture. The exam was evaluated by CAD Version 8.3.17. ?? FINDINGS: This is a negative mammogram with a PHILIP GN FINDING (ACR Category 2 mammogram). There are post-surgical changes in the L eft breast. There has been no change in the appearance of the breasts since the previous examination and there is no evidence of cancer. ?? The breasts are heterogeneously dense wh ich limits mammographic sensitivity for the detection of malignancy. ? Please note: The markedly increased dens ity of these breasts reduces the reliability of mammography. For this cabrera son, the report of a ''negative'' mammogram should not preclude further ev aluation of any clinically suspicious finding. ? CONCLUSION ?? BENIGN mammogram (ACR Category 2). Routi ne screening mammography is recommended with the frequency dependent on the eugene ent's age and breast cancer risk factors. Patient would be ideal candidat e for tomosynthesis imaging- given increased breast density. ? A letter has been sent to this patient b [facility]. Procedure Note Latonia Arzola MD - 11/26/2013Forma tting of this note might be different from the original. BILATERAL MAMMOGRAPHY REASON FOR EXAM: Screening TECHNIQUE: Cranio-caudal (CC) and mediol ateral oblique (MLO) views of both breasts obtained with direct digital cap ture. The exam was evaluated by CAD Version 8.3.17. FINDINGS: This is a negative mammogram with a PHILIP GN FINDING (ACR Category 2 mammogram). There are post-surgical changes in the L eft breast. There has been no change in the appearance of the breasts since the previous examination and there is no evidence of cancer. The breasts are heterogeneously dense wh ich limits mammographic sensitivity for the detection of malignancy. Please note: The markedly increased dens ity of these breasts reduces the reliability of mammography. For this cabrera son, the report of a ''negative'' mammogram should not preclude further ev aluation of any clinically suspicious finding. CONCLUSION BENIGN mammogram (ACR Category 2). Routi ne screening mammography is recommended with the frequency dependent on the eugene ent's age and breast cancer risk factors. Patient would be ideal candidat e for tomosynthesis imaging- given increased breast density. A letter has been sent to this patient b y [facility]. Dinora Hickey APRN IMG MAMMO ORDERABLES documented in this encounter Visit Diagnoses Not on filedocumented in this encounter Care Teams Engine Oiler Relationship Specialty Start Date End Date Francisco Javier Bonner MD PCP - General 02/26/10 04/05/19 documented as of this encounter
--- OUTSIDE RECORDS SUMMARY | 2021-10-04 02:51 | XMS_ITS | Encounter Summary ---
:1960 Author Organization [facility] [place] [address] Care Team Providers Name Role Phone Francisco Javier Bonner MD Primary Care Provider Encounter Details Date Type Department Care Team Description 12/23/2018 Orders Only General Surgery at [facility] Sau[facility]o Hist ory of breast [facility] [employer] cancer (Primary Dx) [facility] [place] [address] GENERAL SURGERY [phone] [place], [place] [address] Social History Tobacco Use Types Packs/Day Years Used Date Never Smoker Alcohol Use Standard Drinks/Week Comments No 0 (1 standard drink = 0.6 oz pure alcoho l) Sex Assigned at Date Recorded Not on file documented as of this encounter Plan of Treatment Upcoming Encounters Date Type Specialty Care Team Description 11/14/2021 Office Visit Audiology Onelia Locke, [facility] AUDIOLOGY DEPT [place], [place] [address] (Wo rk) documented as of this encounter Results Mammo Screening Cad and Mitch Bilateral (02/24/2020 10:56 AM EST) Anatomical Region [...] Screening should continue as long as a w apolinar is in good health and is expected to live 10 years or longer. Screening mammography may not detect 10- 15% of breast cancers. A result letter has been sent to this tavo esteves by the [facility]. BIRADS CATEGORY 1: NEGATIVE Dixie Saucedo APRN IMG MAMMO ORDERABLES documented in this encounter Visit Diagnoses Diagnosis History of breast cancer - Primary Personal history of malignant neoplasm o f breast History of breast cancer Personal history of malignant neoplasm o f breast documented in this encounter Care Teams Waistline Joiner Lockstitch Relationship Specialty Start Date End Date Francisco Javier Bonner MD PCP - General 02/26/10 04/05/19 documented as of this encounter
--- OUTSIDE RECORDS SUMMARY | 2021-10-04 02:51 | XMS_ITS | Encounter Summary ---
:1960 Author Organization [facility] [place] [address] Care Team Providers Name Role Phone Francisco Javier Bonner MD Primary Care Provider Encounter Details Date Type Department Care Team Description 03/01/2014 Office Visit Audiology at [facility] Onelia Locke, Sensorineural hearing [facility] AUD loss, bilateral [address] [place], [place] C[place] [address] AUDIOLOGY DEPT [phone] [place] [id number] Social History Tobacco Use Types Packs/Day Years Used Date Never Smoker Alcohol Use Standard Drinks/Week Comments No 0 (1 standard drink = 0.6 oz pure alcoho l) Sex Assigned at Date Recorded Not on file documented as of this encounter Progress Notes Onelia Ruano, AUD - 03/01/2014 2:05 PM EST AUDIOLOGY SECTION HEARING AID SELECTION APPOINTMENT Dianne Garza was seen today for a hearing aid selection appointment. Ms. Garza has bilateral hearing loss for which the use of hearing aids is recommended. She had a consult with Dr. Archuleta (ENT) and a hearing evaluation at [facility], at which time she was medically cleared for fitting of hearing aids. Ms. Garza identified several situations in which she experiences significant hearing difficulty, which included understanding speech, especially in the presence of background noise and without use ofvisual cues. 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 She has difficulty understanding physicians and colleagues if they are not looking at her. Ms. Garza was counseled regarding hearing aid styles, technology, and pricing options. In consideration of Ms. Garza's auditory demands and degree/configuration of hearing loss, it was agreed that Phonak Audeo V90 312-T hearing aids would be appropriate for her needs. Otoscopy showed clear ear haley ls. Impressions were taken of both ears without incident. Ms. Garza was counseled about the terms of the purchase and the thirty day return privilege. The New Hearing Instruments: Itemized Fees form was reviewed and signed by Ms. Garza, and insurance coverage for the instruments will be verified priorto the hearing aid fitting appointment. PLAN Binaural hearing aid fitting. Dharmesh Cancino, [employer] Bi Consultant [facility] [place] [address] ; [phone] (fax) documented in this encounter Plan of Treatment Upcoming Encounters Date Type Specialty Care Team Description 11/14/2021 Office Visit Audiology Onelia Locke AUD [facility] AUDIOLOGY DEPT [place], [place] [address] (Wo rk) documented as of this encounter Visit Diagnoses Diagnosis Sensorineural hearing loss, bilateral documented in this encounter Care Teams Cranberry Grower Relationship Specialty Start Date End Date Francisco Javier Bonner MD PCP - General 02/26/10 04/05/19 documented as of this encounter
--- OUTSIDE RECORDS SUMMARY | 2021-10-04 02:51 | XMS_ITS | Encounter Summary ---
:1960 Author Organization [place] [address] Care Team Providers Name Role Phone Francisco Javier Bonner MD Primary Care Provider Reason for Visit Reason Comments Follow-up Encounter Details Date Type Department Care Team Description 11/18/2012 Follow-Up General Surgery at [facility], DR SCALES Breast cancer (Primary [facility] [place] Dinora Hickey, ADMINISTRATOR [facility] [place] [address] Dx) [place] [address] Social History Tobacco Use Types Packs/Day Years Used Date Never Smoker Alcohol Use Standard Drinks/Week Comments No 0 (1 standard drink = 0.6 oz pure alcoho l) Sex Assigned at Date Recorded Not on file documented as of this encounter Last Filed Vital Signs Vital Sign Reading Time Taken Comments Blood Pressure 124/77 11/18/2012 9:58 AM EDT Pulse 70 11/18/2012 9:58 AM EDT Temperature - - Respiratory Rate 16 11/18/2012 9:58 AM EDT Oxygen Saturation 100% 11/18/2012 9:58 AM EDT Inhaled Oxygen Concentration - - Weight 59 kg (130 lb) 11/18/2012 9:58 AM EDT Height - - Body Mass Index 23.77 05/06/2012 2:12 PM EST documented in this encounter Progress Notes Dinora Hickey APRN - 11/18/2012 10:02 AM EDT Ms. Dianne Garza is a 51 y.o[address] Pt of Dr. Krishnan who returns in surgical follow up of L DCIS.The patient had routine screening mammography performed in [...] (RM): Distance, RM(s): <0.1 cm to deep margin Additional superfical caudal margin free of DCIS Microcalcifications: Identified in DCIS Correlation Bx's/Cytology: [id number] Other findings: Fibrocystic disease with benign ductal hyperplasia and adenosis Estrogen/progestin receptors: Performed on Block A2 ER immunoreactivity: Positive (see Diagnostic Cervantes*) VA immunoreactivity: Positive (see Diagnostic Cervantes*) Of note, the fascia was taken at the deep margin. Dianne was treated with whole breast xrt .She had some central edema which is now better. She is not on endocrine therapy. Dianne returns in surgical follow up. No new breast masses. No breast pain. No headaches, dizziness, sob, cough, abd pain, lymphedema of the left arm, musculoskeletal pains. On exam, Dianne is well appearing and in and. There is no cervical, supraclavicular or axillary adenopathy b/l. Left breast is with mild central thickening of the skin consistent with lymphedema. Well healed upper, outer left breast. No masses in either breast. Comprehensive Breast Program Surgery Follow Up Note Range of motion of surgical arm complete Lymphedema present No Cosmesis-surgeon reported Cosmesis-patient reported Excellent Excellent Local or regional recurrence No Contralateral cancer present No Distant recurrence present No Date of last follow up 11/18/12 Mammogram today: cat 1 A/P Dianne is doing well without evidence of recurrent disease. I will see Dianne back in 1 year with b/l mammogram. She will call me with new issues if they arise. documented in this encounter Plan of Treatment Upcoming Encounters Date Type Specialty Care Team Description 11/14/2021 Office Visit Audiology Onelia Locke, AUD [facility] AUDIOLOGY [place], [place] [address] (Wo rk) documented as of this encounter Visit Diagnoses Diagnosis Breast cancer - Primary Malignant neoplasm of breast (female), u nspecified site documented in this encounter Care Teams Skilled Nursing Professional Relationship Specialty Start Date End Date Francisco Javier Bonner MD PCP - General 02/26/10 04/05/19 documented as of this encounter
--- OUTSIDE RECORDS SUMMARY | 2021-10-04 02:51 | XMS_ITS | Encounter Summary ---
:1960 Author Organization [facility] [place] [address] Care Team Providers Name Role Phone Francisco Javier Bonner MD Primary Care Provider Encounter Details Date Type Department Care Team Description 10/17/2015 Telephone Audiology at [facility] [place] [address] Social History Tobacco Use Types Packs/Day Years Used Date Never Smoker Alcohol Use Standard Drinks/Week Comments No 0 (1 standard drink = 0.6 oz pure alcoho l) Sex Assigned at Date Recorded Not on file documented as of this encounter Miscellaneous Notes Telephone Encounter - Alisa Kaur - 10/17/2015 11:39 AM EDT Sent two no show letter and one phone call regarding 04/2015 ht/hac reminder with Onelia documented in this encounter Plan of Treatment Upcoming Encounters Date Type Specialty Care Team Description 11/14/2021 Office Visit Audiology Onelia Locke, NICOLE [facility] AUDIOLOGY DEPT [place], [place] [address] (Wo rk) documented as of this encounter Visit Diagnoses Not on filedocumented in this encounter Care Teams Farm Operations Technical Director Relationship Specialty Start Date End Date Francisco Javier Bonner MD PCP - General 02/26/10 04/05/19 documented as of this encounter
--- OUTSIDE RECORDS SUMMARY | 2021-10-04 02:51 | XMS_ITS | Encounter Summary ---
:1960 Author Organization [facility] [place] [address] Care Team Providers Name Role Phone Francisco Javier Bonner MD Primary Care Provider Reason for Referral Physical Therapy (Routine) - Closed Specialty Diagnoses / Procedures Referred By Contact Refer red To Contact Physical Therapy Diagnoses Breast cancer Maria D Krishnan MD [facility] [place] [address] Referral ID Status Reason Start Date Expiration Date Visits V isits Requested Authorized [id number] Closed Evaluate and 10/01/2010 03/30/2011 1 1 Treat Encounter Details Date Type Department Care Team Description 10/01/2010 Orders Only General Surgery at Maria D Krishnan cancer (Primary [facility] MD Noni Dx) [place] [address] GENERAL SURGERY [phone] [place], [place] [address] Social History Tobacco Use Types Packs/Day Years Used Date Never Assessed Sex Assigned at Date Recorded Not on file documented as of this encounter Plan of Treatment Upcoming Encounters Date Type Specialty Care Team Description 11/14/2021 Office Visit Audiology Onelia Locke, NICOLE [facility] AUDIOLOGY DEPT [place], [place] [address] (Wo rk) Scheduled Referrals Name Type Priority Associated Diagnoses Order S chedule REFERRAL TO Outpatient Referral Routine Breast cancer Ordered : PHYSICAL THERAPY 10/01/2010 documented as of this encounter Visit Diagnoses Diagnosis Breast cancer - Primary Malignant neoplasm of breast (female), u nspecified site documented in this encounter Care Teams Cement Sprayer Helper Relationship Specialty Start Date End Date Francisco Javier Bonner MD PCP - General 02/26/10 04/05/19 documented as of this encounter
--- OUTSIDE RECORDS SUMMARY | 2021-10-04 02:51 | XMS_ITS | Encounter Summary ---
:1960 Author Organization [facility] [place] [address] Care Team Providers Name Role Phone Francisco Javier Bonner MD Primary Care Provider Encounter Details Date Type Department Care Team Description 12/13/2015 [address]iology at [facility] [place] Onelia Locke, Fitting and adjustment [facility] [place]UD [place] [address] AUDIOLOGY DEPT [phone] [place], [place] [address] Social History Tobacco Use Types Packs/Day Years Used Date Never Smoker Alcohol Use Standard Drinks/Week Comments No 0 (1 standard drink = 0.6 oz pure alcoho l) Sex Assigned at Date Recorded Not on file documented as of this encounter Progress Notes Onelia Locke, AUD - 12/13/2015 3:15 PM EDT AUDIOLOGY Dianne Garza was seen today for a hearing aid check following a hearing re- evaluation. Please refer to the audiogram and associated note for details on otologic symptoms and hearing test results. Ms. Garza reported that she thinks the hearing aids are great, and she is extremely pleased with the benefits the hearing aids provide for speech understanding. The following actions were taken: ?? Both devices were cleaned and a listening check indicated that they were functioning appropriately. ?? Hearing aid programming was adjusted (gain was increased slightly in the left aid, more in the right) so that the aided responses approximated prescriptive targets for speech without exceeding MPO targets. Ms. Garza was subjectively satisfied with the sound quality of the aids, and loudness discomfort was denied. Simulated real ear measures were obtained and function of the directional microphones was verified. Three extra domes were provided for each hearing instrument RECOMMENDATIONS ?? 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 Annual hearing evaluation and hearing aid check, sooner if concerns arise in the interim. Abhi Weldon [place] [address] ; HEARING AID(S): HEARING AID ?? RIGHT ?? LEFT ?? Make/Model/Style ?? Phonak Audeo V90 312-T ?? Phonak Audeo V90 312-T ?? Casing Color ?? Petrol ?? Petrol ?? Serial Number ?? [id number] ?? [id number] ?? Battery Size ?? 312 ?? 312 ?? Invoice number / date ?? [id number] 03/09/14 ?? [id number] 03/09/14 ?? PROGRAM/SETTINGS ? Fitting Algorithm ?? [...] tube / ROCÍO specifics ?? Length 1 manager crisis/ small closed dome ?? Length 1 manager crisis/ small closed dome ?? Impression Date ? Invoice # ? ACCESSORIES ? Make/Model ? Color ? Serial Number ? Warranty date ? Invoice number/date ? documented in this encounter Plan of Treatment Upcoming Encounters Date Type Specialty Care Team Description 11/14/2021 Office Visit Audiology Onelia Locke AUD [facility] AUDIOLOGY DEPT [place], [place] [address] (Wo rk) documented as of this encounter Visit Diagnoses Diagnosis Fitting and adjustment of hearing aid documented in this encounter Care Teams Television Parts Tester Relationship Specialty Start Date End Date Francisco Javier Bonner MD PCP - General 02/26/10 04/05/19 documented as of this encounter
--- OUTSIDE RECORDS SUMMARY | 2021-10-04 02:51 | XMS_ITS | Encounter Summary ---
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 [address] GENERAL SURGERY [phone] [place] [address] Social History Tobacco Use Types Packs/Day Years [...] Audiology Onelia Locke L, AUD [facility] AUDIOLOGY DEPT [place], [place] [address] (Wo rk) documented as of this encounter Procedures Procedure Name Priority Date/Time Associated Diagnosis Comme nts MAMMO SCREENING CAD Routine 12/18/2017 10:26 AM History of arsen ast Results for this AND SAAD BILATERAL EDT cancer procedure are in the results section. documented in this encounter Results Mammo Screen CAD and Saad Bilat (Generic) (12/18/2017 10:26 AM EDT) Anatomical Region Laterality Modality Breast Bilateral Mammography Specimen (Source) Anatomical Location Collection Method / Collectio n Time Received Time / Laterality Volume Narrative 12/18/2017 11:18 AM EDT REASON FOR EXAM: Screening. History of l eft breast cancer/DCIS. TECHNIQUE: CC and MLO views were obtaine d of both breasts. Computer aided detection was used. 3D tomosynthesis jefe ges were obtained in addition to 2D images. Comparison: The study is compared with p rior images. FINDINGS: Breast density: Heterogeneously dense wh ich may obscure small masses. There are no suspicious microcalcificati ons, masses, or areas of distortion. There are post treatment changes in the left breast. CONCLUSION: No mammographic evidence of malignancy. RECOMMENDATION: Routine annual screening . BIRADS CATEGORY 2: BENIGN FINDINGS * ??Medical organizations agree that [facility] screening mammography beginning at age 40 saves the most lives. * ??The risks of screening are negligibl e compared to dying from breast cancer or suffering from more aggressive treatment required when detected at a later stage. * ??No woman is at low risk for breast c ancer. * ??Some women, because of their family history, a genetic tendency, or certain other factors, should be screened with b reast MRI along with mammograms. (The number of women who fall into this categ ory is very small). The patient and health care provider should discuss the patient history and decide if earlier screening and breast MRI are appropriate . * ??Screening should continue as long as a woman is in good health and is expected to live 10 years or longer. * ??Screening mammography may not detect 10-15% of breast cancers. * ??Women should report any breast hitchcock es to a health care provider right away. Dinora Hickey RET[employer]ED [employer] S[employer] IMG MAMMO ORDERABLES documented in this encounter Visit Diagnoses Diagnosis History of breast cancer Personal history of malignant neoplasm o f breast documented in this encounter Care Teams Consulting Manager Relationship Specialty Start Date End Date Francisco Javier Bonner MD PCP - General 02/26/10 04/05/19 documented as of this encounter
--- OUTSIDE RECORDS SUMMARY | 2021-10-04 02:51 | XMS_ITS | Encounter Summary ---
:1960 Author Organization [facility] [place] [address] Care Team Providers Name Role Phone Francisco Javier Bonner MD Primary Care Provider Encounter Details Date Type Department Care Team Description 12/24/2016 Hospital Encounter XRay at [facility] Francisco Javier Bonner, Estrogen deficiency [address] [place] [address] Dr [place], [place] [address] [phone] [facility] [phone] [place] [address] Social History Tobacco Use Types Packs/Day Years [...] Visit Audiology Onelia Locke, AUD [facility] AUDIOLOGY DEPT [place] [address] (Wo rk) documented as of this encounter Procedures Procedure Name Priority Date/Time Associated Diagnosis Comme nts DXA CENTRAL SPINE, Routine 12/24/2016 2:58 PM Estrogen deficie ncy Results for this HIP, AND/OR WHOLE EDT procedure are in BODY (GENERIC) the results section. documented in this encounter Results DXA Central-Spine, Hip, And/Or Whole Body (Generic) (12/24/2016 2:58 PM EDT) Anatomical Region Laterality Modality C-spine, Hip N/A Other Specimen (Source) Anatomical Location Collection Method / Collectio n Time Received Time / Laterality Volume Impressions 12/26/2016 3:34 PM EDT The measurements fulfill the WHO classification for low bone mass or osteopenia. The fracture risks are incre ased. Estimating Fracture Risk: ? The relationship between bone mineral de nsity (BMD) and risk of fracture is well established. As BMD decreases, risk incr eases. Quantifying risk is difficult and is usually limited to estimation of the relative risk - a term which may have limited value when trying to discuss an individual's risk. Estimating the absolute risk for a patient requires an understanding of the incidence rate in a given population and consideration of mu ltiple, partially independent, risk factors in addition to BMD. ? The World Health Organization (WHO) has developed a fracture risk prediction tool that calculates a ten-year risk of major osteoporotic fracture based on femoral neck bone density measurements a nd nine clinical risk factors for individuals who have not been treated fo r osteoporosis. This is available through an interactive web-based vitalclipa ce (http://www.shef.ac.uk/FRAX/) and can be used to estimate a given patient's ab solute risk of major osteoporotic fracture or hip fracture over the next 1 0 years. These estimates may prove useful when discussing risk with a patie nt. It is important, however, to understand the tool's limitations and ho w a given individual's risk might differ from the tool's estimate. The tool does not take into account the dose-response associated with most risk factors. For e xample, the significant increase in risk associated with multiple prior fractures compared to a single prior fracture is not taken into account. Similarly, the l ocation of a previous fracture, the amount of glucocorticoids and number of cigarettes smoked are not considered. These limitations are discussed in a Fr equently Asked Questions section of the FRAX website which you are encouraged to review. ? DEXA data sheets with BMD measurements a nd plots are available in [email or web address] under the imaging tab. Paper copies will be sent to providers without E-DH access. If you have received this report without th e data sheet and do not have access to [employer], please contact Radiology Transcrip tion at [phone] Thursday thru Thursday 8am-4pm. Narrative 12/26/2016 3:34 PM EDT EXAMINATION: DXA CENTRAL-SPINE, HIP, AND/OR WHOLE BODY (GENERIC) CLINICAL HISTORY: ? ESTROGEN DEF TECHNIQUE: Scans were acquired at the rito mbar spine, ?and left hip. COMPARISON: none FINDINGS: Femoral neck BMD: .686 ? g/cm2 Lowest T-score at a diagnostic region of interest: T-score: -1.5, LEI: Femoral neck, WHO di agnosis: low bone mass or osteopoenia. Procedure Note Joycelyn Hayes MD - 12/26/2016Formatt ing of this note might be different from the original. EXAMINATION: DXA CENTRAL-SPINE, HIP, AND /OR WHOLE BODY (GENERIC) CLINICAL HISTORY: ESTROGEN DEF TECHNIQUE: Scans were acquired at the rito mbar spine, and left hip. COMPARISON: none FINDINGS: Femoral neck BMD: .686 g/cm2 Lowest T-score at a diagnostic region of interest: T-score: -1.5, LEI: Femoral neck, WHO di agnosis: low bone mass or osteopoenia. IMPRESSION The measurements fulfill the WHO classi fication for low bone mass or osteopenia. The fracture risks are incre ased. Estimating Fracture Risk: ? The relationship between bone mineral de nsity (BMD) and risk of fracture is well established. As BMD decreases, risk incr eases. Quantifying risk is difficult and is usually limited to estimation of the relative risk - a term which may have limited value when trying to discuss an individual's risk. Estimating the absolute risk for a patient requires an understanding of the incidence rate in a given population and consideration of mu ltiple, partially independent, risk factors in addition to BMD. ? The World Health Organization (WHO) has developed a fracture risk prediction tool that calculates a ten-year risk of major osteoporotic fracture based on femoral neck bone density measurements a nd nine clinical risk factors for individuals who have not been treated fo r osteoporosis. This is available through an interactive web-based interfa ce (http://www.shef.ac.uk/FRAX/) and can be used to estimate a given patient's ab solute risk of major osteoporotic fracture or hip fracture over the next 1 0 years. These estimates may prove useful when discussing risk with a patie nt. It is important, however, to understand the tool's limitations and ho w a given individual's risk might differ from the tool's estimate. The tool does not take into account the dose-response associated with most risk factors. For e xample, the significant increase in risk associated with multiple prior fractures compared to a single prior fracture is not taken into account. Similarly, the l ocation of a previous fracture, the amount of glucocorticoids and number of cigarettes smoked are not considered. These limitations are discussed in a Fr equently Asked Questions section of the FRAX website which you are encouraged to review. ? DEXA data sheets with BMD measurements a nd plots are available in [employer] under the imaging tab. Paper copies will be sent to providers without E-DH access. If you have received this report without th e data sheet and do not have access to [email or web address], please contact Radiology Transcrip tion at [phone] Thursday thru Thursday 8am-4pm. Francisco Javier Bonner MD IMG DEXA ORDERABLES documented in this encounter Visit Diagnoses Diagnosis Estrogen deficiency Other ovarian failure documented in this encounter Care Teams Flumer Relationship Specialty Start Date End Date Francisco Javier Bonner MD PCP - General 02/26/10 04/05/19 documented as of this encounter
--- OUTSIDE RECORDS SUMMARY | 2021-10-04 02:51 | XMS_ITS | Encounter Summary ---
:1960 Author Organization [facility] Address [address] [place] [address] Care Team Providers Name Role Phone Francisco Javier Bonner MD Primary Care Provider Encounter Details Date Type Department Care Team Description 07/21/2013 Orders Only General Surgery at Dinora Hickey D CIS (ductal [facility] carcinoma in situ), [facility] lef t (Primary Dx) Drive [address] [place] [id number] [id number] [phone] (Wo rk) Social History Tobacco Use Types Packs/Day Years Used Date Never Smoker Alcohol Use Standard Drinks/Week Comments No 0 (1 standard drink = 0.6 oz pure alcoho l) Sex Assigned at Date Recorded Not on file documented as of this encounter Plan of Treatment Upcoming Encounters Date Type Specialty Care Team Description 11/14/2021 Office Visit Audiology Onelia Locke, AUD [facility] AUDIOLOGY DEPT [place], [place] [address] (Wo rk) documented as of this encounter Visit Diagnoses Diagnosis DCIS (ductal carcinoma in situ), left - Primary documented in this encounter Care Teams Library Circulation Technician Relationship Specialty Start Date End Date Francisco Javier Bonner MD PCP - General 02/26/10 04/05/19 documented as of this encounter
--- OUTSIDE RECORDS SUMMARY | 2021-10-04 02:51 | XMS_ITS | Encounter Summary ---
:1960 Author Organization [facility] [place] [address] Care Team Providers Name Role Phone Francisco Javier Bonner MD Primary Care Provider Reason for Visit Reason Onset Date Comments Prior Authorization 03/08/2014 NO AUTH REQ/COVERED BENEFIT Encounter Details Date Type Department Care Team Description 03/08/2014 Telephone Audiology Onelia Locke, Prior Authorization (NO [facility] AUD AUTH REQ/COVERED Drive [facility] BENEFIT) [place] [address] AUDIOLOGY DEPT [place], [place] [address] Social History Tobacco Use Types Packs/Day Years Used Date Never Smoker Alcohol Use Standard Drinks/Week Comments No 0 (1 standard drink = 0.6 oz pure alcoho l) Sex Assigned at Date Recorded Not on file documented as of this encounter Miscellaneous Notes Telephone Encounter - Norma Reinoso - 03/08/2014 11:58 AM EST 03/08/2014 11:57AM PER HPI, NO PA REQ FOR [id number]; PLAN COVERS 90% AFTER DED OF 2800.00 HAS BEEN MET; CURRENTLY 1139.57 OF DED IS MET. JAMIL documented in this encounter Plan of Treatment Upcoming Encounters Date Type Specialty Care Team Description 11/14/2021 Office Visit Audiology Onelia Locke, [facility] AUDIOLOGY [place], [place] [address] (Wo rk) documented as of this encounter Visit Diagnoses Not on filedocumented in this encounter Care Teams Shift Production Associate Relationship Specialty Start Date End Date Francisco Javier Bonner MD PCP - General 02/26/10 04/05/19 documented as of this encounter
--- OUTSIDE RECORDS SUMMARY | 2021-10-04 02:51 | XMS_ITS | Encounter Summary ---
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 documented in this encounter Results Mammo Screening Cad and Saad Bilateral (12/23/2018 1:22 PM EDT) Anatomical Region Laterality Modality Breast Bilateral Mammography Specimen (Source) Anatomical Location Collection Method / Collectio n Time Received Time / Laterality Volume Narrative 12/24/2018 11:04 AM EDT Bilateral mammography Reason for exam: 58-year-old female, his tory of left breast DCIS, lumpectomy and radiation therapy, 2008. Technique: CC and MLO views were obtaine d of each breast using standard 2-D mammography as well as 3-D tomosynthesis . Computer aided detection was used. Comparison: This is compared with prior images. Findings: The breasts are heterogeneousl y dense, which may obscure small masses. There are no suspicious microcalcificati ons, masses, or areas of distortion. The pattern is stable. Stable postsurgical a nd postprocedural change. Conclusion: No mammographic evidence of malignancy. Recommendation: Routine screening. BI-RADS Category 2: Benign findings. * ??The [employer] an d The Society of Breast Imaging recommend annual screening beginning at age 40 for the general female population. * ??Screening should continue as long as a woman is in good health and is expected to live 10 more years or longer . * ??All women should be familiar with th e known benefits, limitations, and potential harms linked to breast cancer screening. They also should know how their breasts normally look and feel and report any breast changes to a health care provider right away. * ??Some women, because of their family history, a genetic tendency, or certain other factors, should be screened with M RIs along with mammograms. (The number of women who fall into this category is very small.) The patient and health care provider should discuss the patient hist ory and decide if earlier screening and breast MRI are appropriate. Thank you for letting us participate in the care of this patient. For questions regarding this report, please contact e number below. ? Electronically signed by: Rajiv Aldana [facility] ([phone]), at 12/24/2018 11:04 AM Dinora Hickey APRN IMG MAMMO ORDERABLES documented in this encounter Visit Diagnoses Diagnosis History of breast cancer Personal history of malignant neoplasm o f breast documented in this encounter Care Teams Commercial Project Manager Relationship Specialty Start Date End Date Francisco Javier Bonner MD PCP - General 02/26/10 04/05/19 documented as of this encounter
--- OUTSIDE RECORDS SUMMARY | 2021-10-04 02:51 | XMS_ITS | Encounter Summary ---
:1960 Author Organization [facility] [place] [address] Care Team Providers Name Role Phone Francisco Javier Bonner MD Primary Care Provider Reason for Visit Reason Comments Radiation Follow-up breast cancer Encounter Details Date Type Department Care Team Description 05/26/2013 Follow-Up Radiation Oncology at [place], Froylan Cheney APRN Breast cancer, female, [address] cary (Primary Dx) [address] [place] [address] [place] [phone] (Wo rk) Social History Tobacco Use Types Packs/Day Years Used Date Never Smoker Alcohol Use Standard Drinks/Week Comments No 0 (1 standard drink = 0.6 oz pure alcoho l) Sex Assigned at Date Recorded Not on file documented as of this encounter Last Filed Vital Signs Vital Sign Reading Time Taken Comments Blood Pressure 121/75 05/26/2013 9:04 AM EST Pulse 93 05/26/2013 9:04 AM EST Temperature 36.6 ??C (97.9 ??F) 05/26/2013 9:04 AM EST Respiratory Rate 16 05/26/2013 9:04 AM EST Oxygen Saturation 99% 05/26/2013 9:04 AM EST Inhaled Oxygen Concentration - - Weight 59.4 kg (131 lb) 05/26/2013 9:04 AM EST Height 157.5 cm (5' 2.01) 05/26/2013 9:04 AM EST copie d Body Mass Index 23.95 05/26/2013 9:04 AM EST documented in this encounter Patient Instructions Patient InstructionsMary Ernandez APRN - 05/26/2013 8:43 AM EST BREAST CANCER NOTES 05/26/2013 Method of Cancer Detection abnormal mammogram--12/28/2008 Menopausal Status at Diagnosis post- due to EMELIA when patient age 46 Date of Diagnostic Biopsy 01/18/2009 Local Surgery partial mastectomy With fascia taken to the deep margin. Surgery done by Dr Maria D Krishnan at [facility] Axillary Management None Date of Last Surgical Procedure 03/06/2009 Histology DCIS Tumor Staging from Staging System TisNoMo Size of Primary Malignancy 2.8 cm Grade high Margin negative ER posiitve ND positive Radiation therapy Total dose 66.4 Gy Dates of treatment 04/09/2009 through 05/30/2009 in 33 fractions Endocrine therapy none Filed Vitals: 05/26/13 0904 BP: 121/75 Pulse: 93 Temp: 36.6 ??C (97.9 ??F) TempSrc: Oral Resp: 16 Height: 157.5 cm (5' 2.01) Weight: 59.421 kg (131 lb) SpO2: 99% documented in this encounter Progress Notes Mray Ernandez APRN - 05/26/2013 1:00 PM EST Subjective: Patient ID: Dianne Garza is a very pleasant 52 y.o. female who was treated with radiation [...] Total fractions: 33 She declined hormonal tx. Breast cancer summary: (copy given to patient) BREAST CANCER NOTES 05/26/2013 Method of Cancer Detection abnormal mammogram--12/28/2008 Menopausal Status at Diagnosis post- due to EMELIA when patient age 46 Date of Diagnostic Biopsy 01/18/2009 Local Surgery partial mastectomy with fascia taken to the deep margin. Surgery done by Dr Maria D Krishnan at [facility] Axillary Management None Date of Last Surgical Procedure 03/06/2009 Histology DCIS Tumor Staging from Staging System TisNoMo Size of Primary Malignancy 2.8 cm Grade high Margin negative ER posiitve ND positive Radiation therapy Yes --under the care of Dr Maida Álvarez Total dose 66.4 Gy Dates of treatment 04/09/2009 through 05/30/2009 in 33 fractions Endocrine therapy none Patient Active Problem List Diagnosis Code ??? Breast CA 174.9 Past Surgical History Procedure Date ??? Hysterectomy @ age 46 yrs due to fibroids. Allergies Allergen Reactions ??? Latex Rash ??? Fish Containing Products Anaphylaxis Current Outpatient Prescriptions on File Prior to Visit Medication Sig Dispense Refill ??? UNABLE TO FIND Take 1 capsule by mouth daily. Brevail ??? multivitamin (THERAGRAN) tablet ??? GLUCOSAMINE HCL/CHONDR VALLE A NA (GLUCOSAMINE-CHONDROITIN) 750-600 mg Tab ??? [DISCONTINUED] cholecalciferol, Vitamin D3, 400 unit tablet Take 400 Units by mouth daily. ??? pirbuterol (MAXAIR AUTOHALER) 200 mcg/Inhalation inhaler ??? fexofenadine (DEEP) 180 mg tablet ??? acetaminophen (TYLENOL) 325 mg tablet Advance Directive: on file History Social History ??? Marital Status: Spouse Name: N/A Number of Children: N/A ??? Years of Education: N/A Occupational History ??? Not on file. Social History Main Topics ??? Smoking status: Never Smoker ??? Smokeless tobacco: Not on file ??? Alcohol Use: No ??? Drug Use: Not on file ??? Sexually Active: Not on file Other Topics Concern ??? Not on file Social History Narrative ??? No narrative on file Patient is . 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 Interim History: Dianne reports that she is doing very well at this time and has had no new health issues or concerns since she was last seen in clinic. She is very active with a regular exercise regime. She denies has no concerns related to her breast She has no lymphedema. She has good arm/shoulder flexibility. She has no persistent cough, no persistent headache, no pain. She has has occasional non distressing hot flashes.. She is S/P hysterectomy five years ago. She does indicate that about two weeks ago her 17 year old nephew was found . The cause of deathhas not been identified. This has been a source of sadness for her and her family. Review of Systems Constitutional: Negative for fever, activity change, appetite change, fatigue and unexpected weight change. Hot flashes --tolerable HENT: Negative. Eyes: Negative. Respiratory: Negative. Negative for cough, chest tightness, shortness of breath and wheezing. Cardiovascular: Negative. Negative for chest pain and leg swelling. Gastrointestinal: Negative. Genitourinary: Negative. Musculoskeletal: Negative. Skin: Negative. Neurological: Negative for dizziness, weakness, light-headedness and headaches. Hematological: Negative. Psychiatric/Behavioral: Negative. Grieving the recent of her 17 year old nephew Filed Vitals: 05/26/13 0904 BP: 121/75 Pulse: 93 Temp: 36.6 ??C (97.9 ??F) TempSrc: Oral Resp: 16 Height: 157.5 cm (5' 2.01) Weight: 59.421 kg (131 lb) SpO2: 99% KPS: 100 Pain: none Objective: Physical Exam Vitals reviewed. Constitutional: She is oriented to person, place, and time. She appears well- developed and well-nourished. No distress. HENT: Head: Normocephalic and atraumatic. Eyes: Conjunctivae normal and EOM are normal. No scleral icterus. [...] ____Slight or localized; ____Marked or generalized Fibrosis: ____None; mild central Increased density; ____Marked increased density + retraction;____ Very marked Dry skin: __XX__None; ____Asymptomatic; symptomatic; Interferes with ADL Cosmetic Result: Excellent; __X___Good;____ Fair; ____Poor Comprehensive Breast Program Surgery Follow Up Note Range of motion of surgical arm complete Lymphedema present No Cosmesis-surgeon reported Cosmesis-patient reported Excellent Excellent Local or regional recurrence No Contralateral cancer present No Distant recurrence present No Date of last follow up 05/26/2013 MARY ERNANDEZ APRN 05/26/2013 11/18/2013 BILATERAL MAMMOGRAPHY REASON FOR EXAM: Screening. History of Left breast DCIS. TECHNIQUE: Cranio-caudal (CC) and mediolateral oblique (MLO) views of both breasts obtained with direct digital capture. The exam was evaluated by CAD Version 8.3.17. FINDINGS: This is a negative mammogram (ACR Category 1). There is a stable fibroglandular pattern without significant change as compared to prior studies. There is no mammographic evidence of cancer. The breasts are extremely dense which greatly limits the mammographic sensitivity for the detection of malignancy. There are post-surgical changes in the Left breast. CONCLUSION This is a NEGATIVE mammogram (ACR Category 1). Routine screening mammography is recommended with thefrequency dependent on the patient's age and breast cancer risk factors. 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 Ms Garza is doing well at this time with FRANCISCO. She was encouraged to continue her exercise regime and excellent weight control given known benefits of this in cancer control. She continues with exercises taught by Bea Ingram in PT to manage occasional mild breast edema. She is to have her next mammogram in November of 2013. She will be seen by surgery at that time. We will not plan additional follow up in radiation oncology. She will continue yearly follow up with her PCP and yearly mammogram and surveillance by surgery. She works at [employer] and will ask for advice if she has concerns. It has been a pleasure to work with Ms Perdue. documented in this encounter Plan of Treatment Upcoming Encounters Date Type Specialty Care Team Description 11/14/2021 Office Visit Audiology Onelia Locke, [facility]UD [facility] AUDI[facility] DEPT [place], [place] [address] (Wo rk) documented as of this encounter Visit Diagnoses Diagnosis Breast cancer, female, left - Primary documented in this encounter Care Teams Decal Cutter Relationship Specialty Start Date End Date Francisco Javier Bonner MD PCP - General 02/26/10 04/05/19 documented as of this encounter
--- OUTSIDE RECORDS SUMMARY | 2021-10-04 02:51 | XMS_ITS | Encounter Summary ---
:1960 Author Organization [facility] [place] [address] Care Team Providers Name Role Phone Francisco Javier Bonner MD Primary Care Provider Reason for Visit Reason Comments Radiation Follow-up BREAST CANCER Encounter Details Date Type Department Care Team Description 08/05/2010 Follow-Up Radiation Oncology at Zeny Álvarez MD Breast cancer, stage 0 [facility] (Primary Dx) [address] [place], [place] RADIATION ONCOL OGY [address] [place] [address] [phone] (Wo rk) Social History Tobacco Use Types Packs/Day Years Used Date Never Assessed Sex Assigned at Date Recorded Not on file documented as of this encounter Last Filed Vital Signs Vital Sign Reading Time Taken Comments Blood Pressure 120/83 08/05/2010 1:00 PM EDT Pulse 70 08/05/2010 1:00 PM EDT Temperature - - Respiratory Rate 16 08/05/2010 1:00 PM EDT Oxygen Saturation 100% 08/05/2010 1:00 PM EDT Inhaled Oxygen Concentration - - Weight - - Height - - Body Mass Index - - documented in this encounter Progress Notes Maida Álvarez MD - 08/05/2010 2:33 PM EDT Subjective: Patient ID: Dianne Garza is a 49 y.o. female who returns for FU now 14 mos s/p xrt. HPI: Xrt for stage 0, pTis cN0 DCIS, high gr, ERPR+, s/p partial mastectomy & then xrt. She declined hormonal tx. Review of Systems: No pain. No new lump. PT w/massage therapy helped to decrease lymphedema of L breast & relieved soreness of L breast. Energy level good. Objective: Physical Exam Constitutional: She is oriented to person, place, and time. She appears well- developed and well-nourished. No distress. HENT: Head: Normocephalic and atraumatic. Eyes: EOM are normal. Right eye exhibits no discharge. Left eye exhibits no discharge. No scleral icterus. Neck: Normal range of motion. Neck supple. No tracheal deviation present. No thyromegaly present. Pulmonary/Chest: Effort normal and breath sounds normal. No stridor. No respiratory distress. She has no wheezes. She has no rales. She exhibits no tenderness. Right breast exhibits no inverted nipple,no mass, no nipple discharge, no skin change and no tenderness. Left breast exhibits no inverted nipple, no mass, no nipple discharge, no skin change and no tenderness. Breasts are asymmetrical (L breast slightly larger than R; not a new finding.). Abdominal: Soft. Bowel sounds are normal. She exhibits no distension and no mass. No tenderness. Shehas no rebound and no guarding. Musculoskeletal: Normal range of motion. She exhibits no edema and no tenderness. Lymphadenopathy: She has no cervical adenopathy. She has no axillary adenopathy. Neurological: She is alert and oriented to person, place, and time. No cranial nerve deficit. Skin: Skin is warm and dry. She is not diaphoretic. No erythema. Psychiatric: She has a normal mood and affect. Her behavior is normal. Judgment and thought content normal. : Assessment and Plan: No problem-specific visit notes found for this encounter. FRANCISCO She has received a letter stating FU mmgs due in September & Dr. Krishnan' last note indicates she would have B mmgs when seen by her for FU in 09/14. Ms. Garza will call Dr. Krishnan' office aboutthe mmgs & we will also check w/Dr. Krishnan as to whether her office will sched the mmgs or whether Ms. Novosel should do so. FU 6 mos. documented in this encounter Plan of Treatment Upcoming Encounters Date Type Specialty Care Team Description 11/14/2021 Office Visit Audiology Onelia Locke, [facility]UD [facility] AUDIOLOGY [place], [place] [address] (Wo rk) documented as of this encounter Visit Diagnoses Diagnosis Breast cancer, stage 0 - Primary Carcinoma in situ of breast documented in this encounter Care Teams Worsted Winder Relationship Specialty Start Date End Date Francisco Javier Bonner MD PCP - General 02/26/10 04/05/19 documented as of this encounter
--- OUTSIDE RECORDS SUMMARY | 2021-10-04 02:51 | XMS_ITS | Encounter Summary ---
:1960 Author Organization [facility] [address] Care Team Providers Name Role Phone Francisco Javier Bonner MD Primary Care Provider Encounter Details Date Type Department Care Team Description 12/12/2016 Hospital Encounter Mammography at [facility] Maria D Krishnan History of breast [facility] MD Noni cancer [facility] [address] GENERAL SURGERY [phone] [place] [address] Social History Tobacco Use Types Packs/Day Years [...] Care Team Description 11/14/2021 Office Visit Audiology Chucky Onelia Mariana, [facility]UD [facility] AUDIOLOGY DEPT [place], [place] [address] (Wo rk) documented as of this encounter Procedures Procedure Name Priority Date/Time Associated Diagnosis Comme nts MAMMO SCREENING CAD Routine 12/12/2016 9:50 AM History of faith st Results for this AND SAAD BILATERAL EDT cancer procedure are in the results section. documented in this encounter Results Mammo Screen CAD and Saad Bilat (Generic) (12/12/2016 9:50 AM EDT) Anatomical Region Laterality Modality Breast Bilateral Mammography Specimen (Source) Anatomical Location Collection Method / Collectio n Time Received Time / Laterality Volume Narrative 12/12/2016 10:17 AM EDT REASON FOR EXAM: Screening. History of left breast cancer. TECHNIQUE: CC and MLO views were obtaine d of both breasts. Computer aided detection was used. 3D tomosynthesis jefe ges were obtained in addition to 2D images. Comparison: The study is compared with p [place] images. FINDINGS: Breast density:The breasts are extremely dense, which lowers the sensitivity of mammography. There are no suspicious microcalcificati ons, masses, or areas of distortion. There are post treatment changes in the left breast. CONCLUSION: No mammographic evidence of malignancy. RECOMMENDATION: Routine screening. BIRADS CATEGORY 2: BENIGN FINDINGS * ??The [employer] [employer] an d The Society [...] earlier screening and breast MRI are appropriate. Maria D Krishnan MD IMG MAMMO ORDERABLES documented in this encounter Visit Diagnoses Diagnosis History of breast cancer Personal history of malignant neoplasm o f breast documented in this encounter Care Teams Registered Travel Nurse Relationship Specialty Start Date End Date Francisco Javier Bonner MD PCP - General 02/26/10 04/05/19 documented as of this encounter
--- OUTSIDE RECORDS SUMMARY | 2021-10-04 02:51 | XMS_ITS | Encounter Summary ---
:1960 Author Organization [facility] [place] [address] Care Team Providers Name Role Phone Francisco Javier Bonner MD Primary Care Provider Encounter Details Date Type Department Care Team Description 04/18/2014 Office Visit Audiology at [facility] Onelia Locke, Fitting and adjustment [facility] AUD [place] [address] AUDIOLOGY DEPT [phone] [place], [place] [address] Social History Tobacco Use Types Packs/Day Years Used Date Never Smoker Alcohol Use Standard Drinks/Week Comments No 0 (1 standard drink = 0.6 oz pure alcoho l) Sex Assigned at Date Recorded Not on file documented as of this encounter Progress Notes Onelia Ruano, AUD - 04/18/2014 10:46 AM EST AUDIOLOGY HEARING AID CHECK Dianne Garza returns today after fitting of binaural hearing . Ms. Garza reported the followinginformation: ?? She is understanding speech much better, even in noisy environments. ?? The hearing aids are still slightly loud ?? Understanding speech over the phone can be challenging given that the hearing aids are amplifyingbackground noise- she understands well when she removes the hearing aids The following actions were taken: ?? Otoscopy showed clear ear canals and no signs of irritation from the hearing aids. ?? Gain was reduced by 3 dB. Mute was added to the last program position for Ms. Garza to use whenon the phone, if needed. ?? Simulated real ear measures were obtained and function of the directional microphones was verified. ?? Ms. Garza was provided 3 extra domes for each hearing instrument. Plan: Annual audiologic evaluation and hearing aid check. Patient was advised to contact the clinic if concerns arise in the interim. Abhi Morel [employer] [place] [address] ; HEARING AID(S): HEARING AID RIGHT LEFT Make/Model/Style Phonak Audeo V90 312-T Phonak Audeo V90 312-T Casing Color Petrol Petrol Serial Number [id number] Battery Size 312 312 Invoice number / date [id number] 03/09/14 [id number] 03/09/14 PROGRAM/SETTINGS Fitting Algorithm DSL-Adult Same Verification Method REM Same Programs Autosense OS Mute Autosense OS Mute Disabled Features Other HEARING AID WARRANTY Original Fit Date 04/04/14 04/04/14 Current Status 06/06/16 06/06/16 EARMOLD (if BTE GROVER) Lab Earmold / Slim tube / ROCÍO specifics 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 Impression Date Invoice # ACCESSORIES Make/Model Color Serial Number Warranty date Invoice number/date documented in this encounter Plan of Treatment Upcoming Encounters Date Type Specialty Care Team Description 11/14/2021 Office Visit Audiology Onelia Locke AUD [facility] AUDIOLOGY DEPT [place], [place] [address] (Wo rk) documented as of this encounter Visit Diagnoses Diagnosis Fitting and adjustment of hearing aid documented in this encounter Care Teams Glass Deposition Tender Relationship Specialty Start Date End Date Francisco Javier Bonner MD PCP - General 02/26/10 04/05/19 documented as of this encounter
--- OUTSIDE RECORDS SUMMARY | 2021-10-04 02:51 | XMS_ITS | Encounter Summary ---
:1960 Author Organization [facility] [address] Care Team Providers Name Role Phone Francisco Javier Bonner MD Primary Care Provider Encounter Details Date Type Department Care Team Description 09/26/2010 Hospital Encounter Mammography at [facility] [place] [address] Social History Tobacco Use Types Packs/Day Years Used Date Never Assessed Sex Assigned at Date Recorded Not on file documented as of this encounter Medications at Time of Discharge Medication Sig Dispensed Refills Start Date End Date pirbuterol (MAXAIR AUTOHALER) 200 0 mcg/Inhalation inhaler fexofenadine (DEEP) 180 mg tablet 0 09/13/2009 multivitamin (THERAGRAN) tablet 0 09/04 GLUCOSAMINE HCL/CHONDR VALLE A NA 0 09/1306/21/2020 (GLUCOSAMINE-CHONDROITIN) 750-600 mg Tab acetaminophen (TYLENOL) 325 mg tablet 0 09/13/2009 06/21/2020 documented as of this encounter Plan of Treatment Upcoming Encounters Date Type Specialty Care Team Description 11/14/2021 Office Visit Audiology Onelia Locke, AUD [facility] AUDIOLOGY DEPT [place], [place] [address] (Wo rk) documented as of this encounter Procedures Procedure Name Priority Date/Time Associated Diagnosis Comme nts MAMMO SCREENING CAD Routine 09/26/2010 10:44 AM Breast cancer Results for this BILATERAL EDT procedure are i n the results section. documented in this encounter Results Mammo digital bilateral Screening with CAD (09/26/2010 10:44 AM EDT) Anatomical Region Laterality Modality Breast Bilateral Mammography Specimen (Source) Anatomical Collection Method Collection Time Re ceived Time Location / / Volume Laterality 09/26/2010 10:44 AM EDT Narrative 09/26/2010 11:00 AM EDT Reason for Exam: Screening, h/o LB cance r s/p BCT Technique: Craniocaudal (CC) and Medio-l ateral Oblique (MLO) views of both breasts obtained with direct digital cap ture. The exam was evaluated by CAD version 8. 3.17. Findings: This is a negative mammogram (ACR Catego ry 1). ??There is a stable fibroglandular pattern without significa nt change from prior studies. There is no mammographic evidence of can cer. ??The breasts are extremely dense which greatly limits mammographic sensit ivity for the detection of malignancy. CONCLUSION: This is a NEGATIVE mammogram (ACR Catego ry 1). ?? Routine screening mammography is recomme nded with the frequency dependent upon the patient's age and breast cancer risk factors. A letter has been sent to this patient b y the breast imaging center. Procedure Note Brannon Shipman MD - 09/26/2010Format ting of this note might be different from the original. Reason for Exam: Screening, h/o LB cance r s/p BCT Technique: Craniocaudal (CC) and Medio-l ateral Oblique (MLO) views of both breasts obtained with direct digital cap ture. The exam was evaluated by CAD version 8. 3.17. Findings: This is a negative mammogram (ACR Catego ry 1). There is a stable fibroglandular pattern without significa nt change from prior studies. There is no mammographic evidence of can cer. The breasts are extremely dense which greatly limits mammographic sensit ivity for the detection of malignancy. CONCLUSION: This is a NEGATIVE mammogram (ACR Catego ry 1). Routine screening mammography is recomme nded with the frequency dependent upon the patient's age and breast cancer risk factors. A letter has been sent to this patient b y the breast imaging center. Maria D Krishnan MD IMG MAMMO ORDERABLES documented in this encounter Visit Diagnoses Diagnosis Breast cancer Malignant neoplasm of breast (female), u nspecified site documented in this encounter Care Teams Typewriter Ribbon Winder Relationship Specialty Start Date End Date Francisco Javier Bonner MD PCP - General 02/26/10 04/05/19 documented as of this encounter
--- OUTSIDE RECORDS SUMMARY | 2021-10-04 02:51 | XMS_ITS | Encounter Summary ---
:1960 Author Organization [facility] [place] [address] Care Team Providers Name Role Phone Francisco Javier Bonner MD Primary Care Provider Encounter Details Date Type Department Care Team Description 08/05/2010 Orders Only General Surgery at Maria D Krishnan cancer (Primary [facility] M, Dx) [facility]ly [facility] [place] [address] GENERAL SURGERY [phone] [place], [place] [address] Social History Tobacco Use Types Packs/Day Years Used Date Never Assessed Sex Assigned at Date Recorded Not on file documented as of this encounter Plan of Treatment Upcoming Encounters Date Type Specialty Care Team Description 11/14/2021 Office Visit Audiology Onelia Locke, NICOLE [facility] AUDIOLOGY DEPT [place], [place] [address] (Wo rk) documented as of this encounter Results Mammo digital bilateral Screening [...] y the breast imaging center. Procedure Note Branonn Shipman MD - 09/26/2010Format ting of this [...] neoplasm of breast (female), u nspecified site Breast cancer Malignant neoplasm of breast (female), u nspecified site documented in this encounter Care Teams Tow Mate Relationship Specialty Start Date End Date Francisco Javier Bonner MD PCP - General 02/26/10 04/05/19 documented as of this encounter
--- OUTSIDE RECORDS SUMMARY | 2021-10-04 02:51 | XMS_ITS | Encounter Summary ---
:1960 Author Organization [facility] [place] [address] Care Team Providers Name Role Phone Francisco Javier Bonner MD Primary Care Provider Reason for Visit Reason Comments Follow-up Encounter Details Date Type Department Care Team Description 09/26/2010 Hospital Encounter Hematology and CLINIC, DR YORDY hein of breast Oncology at [facility] Maria D Krishnan MD [facility] [place] [address] cancer (Primary [place]) [place] [phone] Social History Tobacco Use Types Packs/Day Years Used Date Never Assessed Sex Assigned at Date Recorded Not on file documented as of this encounter Last Filed Vital Signs Vital Sign Reading Time Taken Comments Blood Pressure 123/78 09/26/2010 1:06 PM EDT Pulse - - Temperature - - Respiratory Rate - - Oxygen Saturation - - Inhaled Oxygen Concentration - - Weight 59.5 kg (131 lb 2.8 oz) 09/26/2010 1:06 PM EDT Height 157.5 cm (5' 2) 09/26/2010 1:06 PM EDT Body Mass Index 23.99 09/26/2010 1:06 PM EDT documented in this encounter Medications at Time of Discharge Medication Sig Dispensed Refills Start Date End Date pirbuterol (MAXAIR AUTOHALER) 200 0 mcg/Inhalation inhaler fexofenadine (DEEP) 180 mg tablet 0 09/13/2009 multivitamin (THERAGRAN) tablet 0 09/04 GLUCOSAMINE HCL/CHONDR VALLE A NA 0 09/1306/21/2020 (GLUCOSAMINE-CHONDROITIN) 750-600 mg Tab acetaminophen (TYLENOL) 325 mg tablet 0 09/13/2009 06/21/2020 documented as of this encounter Progress Notes Maria D Krishnan MD - 09/26/2010 2:10 PM EDTEncounter addended by: Maria D Krishnan MD on: 09/26/2010 2:10 PM
Documentation filed: Follow-up Section, LOS Section Maria D Krishnan MD - 09/26/2010 2:08 PM EDT History of Present Illness: Ms. Dianne Garza is a 49 y.o. 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 The patient had routine screening mammography performed in January, with the finding of microcalcifications in the upper, outer left breast (axillary tail). Additional views confirmed the findings. Stereotactic biopsy confirmed DCIS. MRI for surgical planning revealed the known malignancy with no additional ipsi or contralateral findings. No adenopathy noted. [...] DCIS Microcalcifications: Identified in DCIS Correlation Bx's/Cytology: [id number] Other findings: Fibrocystic disease with benign ductal hyperplasia and adenosis Estrogen/progestin receptors: Performed on Block A2 ER immunoreactivity: Positive (see Diagnostic Cervantes*) [place] immunoreactivity: Positive (see Diagnostic Cervantes*) Of note, the fascia was taken at the deep margin. Dianne was treated with whole breast xrt which she completed in June. Fatigue continues to improve. She is not on endocrine therapy. Donato returns in surgical follow up. She has no complaints except a slight cord under the left axilla. The size discrepancy of her surgical/xrt breast is improved. No new breast masses. No breast pain.No headaches, dizziness, sob, cough, abd pain, lymphedema of the left arm, musculoskeletal pains. FH: Dianne's mother this past winter secondary to lung cancer. Her cousin also this winter at age 63 from breast cancer. SH/PMH unchanged. Got new puppy, iNmisha. On exam, Dianne is well appearing and in and. There is no cervical, supraclavicular or axillary adenopathy b/l. Left breast is larger than the right but much improved. Well healed upper, outer left breast and axilla. No masses in either breast. Abd: soft, non tender, no masses Mammogram today: normal b/l A/P Dianne is doing well without evidence of recurrent disease. I will see Dianne back in 1 year with b/l mammogram. She will call me with new issues if they arise. documented in this encounter Plan of Treatment Upcoming Encounters Date Type Specialty Care Team Description 11/14/2021 Office Visit Audiology Onelia Locke, NICOLE [facility] AUDIOLOGY [place], [place] [address] (Wo rk) documented as of this encounter Visit Diagnoses Diagnosis History of breast cancer - Primary Personal history of malignant neoplasm o f breast documented in this encounter Care Teams Tree Girdler Relationship Specialty Start Date End Date Francisco Javier Bonner MD PCP - General 02/26/10 04/05/19 documented as of this encounter
--- OUTSIDE RECORDS SUMMARY | 2021-10-04 02:51 | XMS_ITS | Encounter Summary ---
:1960 Author Organization [facility] Address [facility] [place] [address] Care Team Providers Name Role Phone Francisco Javier Bonner MD Primary Care Provider Encounter Details Date Type Department Care Team Description 09/14/2012 Orders Only General Surgery at Dinora Hickey D CIS (ductal [facility] carcinoma in situ) of [facility] arsen ast (Primary Dx) Drive DR [place] GENERAL SURGERY [id number] [address] [phone] (Wo rk) Social History Tobacco Use Types Packs/Day Years Used Date Never Smoker Alcohol Use Standard Drinks/Week Comments No 0 (1 standard drink = 0.6 oz pure alcoho l) Sex Assigned at Date Recorded Not on file documented as of this encounter Plan of Treatment Upcoming Encounters Date Type Specialty Care Team Description 11/14/2021 Office Visit Audiology Onelia Locke, AUD [facility] AUDIOLOGY DEPT [place], [place] [address] (Wo rk) documented as of this encounter Results Mammo digital bilateral Screening with CAD (11/18/2012 9:21 AM EDT) Anatomical Region Laterality Modality Breast Bilateral Mammography Specimen (Source) Anatomical Collection Method Collection Time Re ceived Time Location / / Volume Laterality 11/18/2012 9:21 AM EDT Narrative 11/19/2012 12:07 PM EDT BILATERAL MAMMOGRAPHY ?? REASON FOR EXAM: Screening. History of L eft breast DCIS. ?? TECHNIQUE: Cranio-caudal (CC) and mediol ateral oblique (MLO) views of both breasts obtained with direct digital cap ture. The exam was evaluated by CAD Version 8.3.17. ?? FINDINGS: This is a negative mammogram ( ACR Category 1). There is a stable fibroglandular pattern without significa nt change as compared to prior studies. There is no mammographic evidence of can cer. ? The breasts are extremely dense which gr eatly limits the mammographic sensitivity for the detection of maligna ncy. ? There are post-surgical changes in the L eft breast. ? CONCLUSION ?? This is a NEGATIVE mammogram (ACR Catego ry 1). Routine screening mammography is recommended with the frequency dependent on the patient's age and breast cancer risk factors. ?? A letter has been sent to this patient b y the [facility]. Procedure Note Genie Em MD - 3 BILATERAL MAMMOGRAPHY REASON FOR EXAM: Screening. History of L eft breast DCIS. TECHNIQUE: Cranio-caudal (CC) and mediol ateral oblique (MLO) views of both breasts obtained with direct digital cap ture. The exam was evaluated by CAD Version 8.3.17. FINDINGS: This is a negative mammogram ( ACR Category 1). There is a stable fibroglandular pattern without significa nt change as compared to prior studies. There is no mammographic evidence of can cer. The breasts are extremely dense which gr eatly limits the mammographic sensitivity for the detection of maligna ncy. There are post-surgical changes in the L eft breast. CONCLUSION This is a NEGATIVE mammogram (ACR Catego ry 1). Routine screening mammography is recommended with the frequency dependent on the patient's age and breast cancer risk factors. A letter has been sent to this patient b y the [facility]. Shayan Hogue MD IMG MAMMO ORDERABLES documented in this encounter Visit Diagnoses Diagnosis DCIS (ductal carcinoma in situ) of breas t - Primary Carcinoma in situ of breast DCIS (ductal carcinoma in situ) of breas t Carcinoma in situ of breast documented in this encounter Care Teams Kitchen Assistant Relationship Specialty Start Date End Date Francisco Javier Bonner MD PCP - General 02/26/10 04/05/19 documented as of this encounter
--- OUTSIDE RECORDS SUMMARY | 2021-10-04 02:51 | XMS_ITS | Encounter Summary ---
:1960 Author Organization [facility] [place] [address] Care Team Providers Name Role Phone Francisco Javier Bonner MD Primary Care Provider Reason for Visit Reason Comments Follow Up Surgery Encounter Details Date Type Department Care Team Description 12/18/2017 Office Visit General Surgery at Dinora Hickey of breast [facility], FRAUD MANAGER cancer [facility] [address] [place] GENERAL SURGERY [address] [place] [address] [phone] (Wo rk) Social History Tobacco Use Types Packs/Day Years Used Date Never Smoker Alcohol Use Standard Drinks/Week Comments No 0 (1 standard drink = 0.6 oz pure alcoho l) Sex Assigned at Date Recorded Not on file documented as of this encounter Progress Notes Dinora Hickey APRN - 12/18/2017 10:30 AM EDT Dianne is a 57y.o[address] Pt of Dr. Krishnan who returns in [...] DCIS Microcalcifications: Identified in DCIS Correlation Bx's/Cytology: [id number] Other findings: Fibrocystic disease with benign ductal hyperplasia and adenosis Estrogen/progestin receptors: Performed on Block A2 ER immunoreactivity: Positive (see Diagnostic Cervantes*) [place] immunoreactivity: Positive (see Diagnostic Cervantes*) Of note, [...] left arm, musculoskeletal pains. 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 On exam, Dianne is well appearing and [...] present No Date of last follow up 12/18/17 Mammogram today: pending A/P Dianne is doing well without evidence of recurrent disease. I will see Dianne back in 1 year with b/l mammogram. She will call me with new issues if they arise. documented in this encounter Plan of Treatment Upcoming Encounters Date Type Specialty Care Team Description 11/14/2021 Office Visit Audiology Onelia Locke, NICOLE [facility] AUDIOLOGY DEPT [place] [id number] (Wo rk) documented as of this encounter Results Mammo Screening Cad and Mitch Bilateral (12/23/2018 1:22 PM EDT) Anatomical Region [...] BI-RADS Category 2: Benign findings. * ??The [employer] an d The Society of Breast Imaging recommend annual screening beginning at age 40 for the general female population. * ??Screening should continue as long as a woman is in good health and is expected to live 10 more years or longer . * ??All women should be familiar with [facility] known benefits, limitations, and potential harms linked [...] For questions regarding this report, please contact [facility] number below. ? Dinora Hickey FRAUD MANAGER IMG MAMMO ORDERABLES documented in this encounter Visit Diagnoses Diagnosis History of breast cancer Personal history of malignant neoplasm o f breast History of breast cancer Personal history of malignant neoplasm o f breast documented in this encounter Care Teams Bus Repair Supervisor Relationship Specialty Start Date End Date Francisco Javier Bonner MD PCP - General 02/26/10 04/05/19 documented as of this encounter
--- OUTSIDE RECORDS SUMMARY | 2021-10-04 02:51 | XMS_ITS | Encounter Summary ---
:1960 Author Organization [facility] [place] [address] Care Team Providers Name Role Phone Francisco Javier Bonner MD Primary Care Provider Encounter Details Date Type Department Care Team Description 11/06/2011 Hospital Encounter Mammography at [facility] [place] [address] Social History Tobacco Use Types Packs/Day Years Used Date Never Smoker Alcohol Use Standard Drinks/Week Comments No 0 (1 standard drink = 0.6 oz pure alcoho l) Sex Assigned at Date Recorded Not on file documented as of this encounter Medications at Time of Discharge Medication Sig Dispensed Refills Start Date End Date pirbuterol (MAXAIR 0 09/13/2009 AUTOHALER) 200 mcg/Inhalation [...] AUD [facility] AUDIOLOGY DEPT [place], [place] [address] (Wo rk) documented as of this encounter Procedures Procedure Name Priority Date/Time Associated Diagnosis Comme nts MAMMO SCREENING CAD Routine 11/06/2011 9:59 AM Breast cancer R esults for this BILATERAL EDT procedure are i n the results section. documented in this encounter Results Mammo digital bilateral Screening with CAD (11/06/2011 9:59 AM EDT) Anatomical Region Laterality Modality Breast Bilateral Mammography Specimen (Source) Anatomical Collection Method Collection Time Re ceived Time Location / / Volume Laterality 11/06/2011 9:59 AM EDT Narrative 11/11/2011 5:39 PM EDT BILATERAL MAMMOGRAPHY ?? REASON FOR EXAM: Screening, H/O Left arsen ast cancer ?? TECHNIQUE: Cranio-caudal (CC) and mediol ateral oblique (MLO) views of both breasts obtained with direct digital cap ture. The exam was evaluated by CAD Version 8.3.17. ?? In addition to the routine 2D imaging th is exam was also performed with 3D tomographic imaging in MLO and CC projec tions. ?? FINDINGS: This is a negative mammogram ( ACR Category 1). There is a stable fibroglandular pattern without significa nt change as compared to prior studies. There is no mammographic evidence of can cer. ? There are post-radiation changes in the Left breast. ? There are post-surgical changes in the L eft breast. ? The breasts are heterogeneously dense wh ich may limit mammographic sensitivity for the detection of malignancy. ? CONCLUSION ?? This is a NEGATIVE mammogram (ACR Catego ry 1). Routine screening mammography is recommended with the frequency dependent on the patient's age and breast cancer risk factors. ?? A letter has been sent to this patient b y the [facility]. Procedure Note April Ojeda MD - 10/2011 BILATERAL MAMMOGRAPHY REASON FOR EXAM: Screening, H/O Left arsen ast cancer TECHNIQUE: Cranio-caudal (CC) and mediol ateral oblique (MLO) views of both breasts obtained with direct digital cap ture. The exam was evaluated by CAD Version 8.3.17. In addition to the routine 2D imaging th is exam was also performed with 3D tomographic imaging in MLO and CC projec tions. FINDINGS: This is a negative mammogram ( ACR Category 1). There is a stable fibroglandular pattern without significa nt change as compared to prior studies. There is no mammographic evidence of can cer. There are post-radiation changes in the Left breast. There are post-surgical changes in the L eft breast. The breasts are heterogeneously dense wh ich may limit mammographic sensitivity for the detection of malignancy. CONCLUSION This is a NEGATIVE mammogram (ACR Catego ry 1). Routine screening mammography is recommended with the frequency dependent on the patient's age and breast cancer risk factors. A letter has been sent to this patient b y the [facility]. Maria D Krishnan MD IMG MAMMO ORDERABLES documented in this encounter Visit Diagnoses Diagnosis Breast cancer Malignant neoplasm of breast (female), u nspecified site documented in this encounter Care Teams Ride Attendant Relationship Specialty Start Date End Date Francisco Javier Bonner MD PCP - General 02/26/10 04/05/19 documented as of this encounter
--- OUTSIDE RECORDS SUMMARY | 2021-10-04 02:51 | XMS_ITS | Encounter Summary ---
:1960 Author Organization [facility] [place] [address] Care Team Providers Name Role Phone Francisco Javier Bonner MD Primary Care Provider Encounter Details Date Type Department Care Team Description 06/05/2017 Office Visit Audiology at [facility] Onelia Locke, Mixed conductive and sensori neural hearing loss of right ear with restricted hearing of left ear; [facility] AUD Sensorineural hearing loss, unilateral, left ear, with restricted hearing on the contralateral side [place], [place] CENTER [address] AUDIOLOGY DEPT [phone] [place], [place] [address] Social History Tobacco Use Types Packs/Day Years Used Date Never Smoker Alcohol Use Standard Drinks/Week Comments No 0 (1 standard drink = 0.6 oz pure alcoho l) Sex Assigned at Date Recorded Not on file documented as of this encounter Progress Notes Onelia Locke, NICOLE - 06/05/2017 10:30 AM EST [place] [address] Dianne Garza was seen today for an audiologic evaluation. Please refer to audiogram under procedures for details on history, results and recommendations. Nicole Weldon [employer] [place] [address] ; documented in this encounter Plan of Treatment Upcoming Encounters Date Type Specialty Care Team Description 11/14/2021 Office Visit Audiology Onelia Locke AUD [facility]UD[facility]OLOGY [facility] [place] [address] (Wo rk) documented as of this encounter Procedures Procedure Name Priority Date/Time Associated Comments Diagnosis COMPREHENSIVE HEARING Routine 06/05/2017 10:29 Re sults for this TEST AM EST procedure are i n the results section. documented in this encounter Results Comprehensive hearing test (06/05/2017 10:29 AM EST) Specimen (Source) Anatomical Collection Method Collection Time Re ceived Time Location / / Volume Laterality 06/05/2017 10:29 AM EST Narrative AUD[facility] COMP - 06/05/2017 10:29 AM EST Hearing aid check as scheduled Procedure Note Unknown - 06/05/2017Formatting of this n ote might be different from the original. Hearing aid check as scheduled Unknown AUDIOLOGY SERVICES ORDERABLE S Performing Organization Address City/State/ZIP Code Phon e Number AUDBASE COMP documented in this encounter Visit Diagnoses Diagnosis Mixed conductive and sensorineural heari ng loss of right ear with restricted hearing of left ear Sensorineural hearing loss, unilateral, left ear, with restricted hearing on the contralateral side documented in this encounter Care Teams Law Writer Relationship Specialty Start Date End Date Francisco Javier Bonner MD PCP - General 02/26/10 04/05/19 documented as of this encounter
--- OUTSIDE RECORDS SUMMARY | 2021-10-04 02:51 | XMS_ITS | Encounter Summary ---
:1960 Author Organization [place] [address] Care Team Providers Name Role Phone Francisco Javier Bonner MD Primary Care Provider Reason for Visit Reason Comments Radiation Follow-up breast cancer Encounter Details Date Type Department Care Team Description 04/17/2011 Follow-Up Radiation Oncology at Froylan Tijerina APRN Breast ca (Primary Dx) [address] [place] [id number] (Wo rk) Social History Tobacco Use Types Packs/Day Years Used Date Never Smoker Alcohol Use Standard Drinks/Week Comments No 0 (1 standard drink = 0.6 oz pure alcoho l) Sex Assigned at Date Recorded Not on file documented as of this encounter Last Filed Vital Signs Vital Sign Reading Time Taken Comments Blood Pressure 120/80 04/17/2011 4:22 PM EST Pulse 75 04/17/2011 11:32 AM EST Temperature 36.7 ??C (98.1 ??F) 04/17/2011 11:32 AM EST Respiratory Rate 16 04/17/2011 11:32 AM EST Oxygen Saturation 100% 04/17/2011 11:32 AM EST Inhaled Oxygen Concentration - - Weight 61 kg (134 lb 7.7 oz) 04/17/2011 11:32 AM EST Height - - Body Mass Index 24.6 09/26/2010 1:06 PM EDT documented in this encounter Progress Notes Sandy Tijerina M, SENIOR TECHNICAL WRITER - 04/17/2011 12:06 PM EST Subjective: Patient ID: Dianne Garza is a 50 y.o. female who was treated with radiation therapy for left breast cancer. She completed treatment on [...] fractions: 33 She declined hormonal tx. Current outpatient prescriptions ordered prior to encounter Medication Sig Dispense Refill ??? pirbuterol (MAXAIR AUTOHALER) 200 mcg/Inhalation inhaler ??? fexofenadine (DEEP) 180 mg tablet ??? multivitamin (THERAGRAN) tablet ??? GLUCOSAMINE HCL/CHONDR VALLE A NA (GLUCOSAMINE-CHONDROITIN) 750-600 mg Tab ??? acetaminophen (TYLENOL) 325 mg tablet Interim History: Dianne reports that she is doing well at this time. She is very active with a regular exercise regime. She reports occasional heaviness in her treated area but that there is no longer lymphedema. She has been seen by Bea Ingram in PT and has exercises that she was taught to improve lymphatic drainage. She does not require a sleeve. She has no breast complaints at this time. She has nopersistent cough, no persistent headache, no pain. She has has hot flashes and finds that an OTC medication Brevail that has concentrated flax seed oilhas been very helpful. Review of Systems Constitutional: Negative for fever, [...] headaches. Hematological: Negative. Psychiatric/Behavioral: Negative. Filed Vitals: 04/17/11 1132 04/17/11 1622 BP: 128/92 120/80 Pulse: 75 Temp: 36.7 ??C (98.1 ??F) TempSrc: Oral Resp: 16 Weight: 61 kg (134 lb 7.7 oz) SpO2: 100% Objective: Physical Exam Vitals reviewed. Constitutional: She is oriented to person, place, and time. She appears well- developed and well-nourished. No distress. HENT: Head: Normocephalic and atraumatic. Mouth/Throat: Oropharynx is clear and moist. No oropharyngeal exudate. Eyes: Conjunctivae are normal. No scleral icterus. Neck: Normal [...] No spine tenderness, No rib tenderness Lymphadenopathy: She has no cervical adenopathy. She [...] discharge, no dryness, no erythema. No masses, Mild lymphedema inferior aspectof left breast Treated site: ____Right or _X___Left, __X__Breast or Chest wall Telangectasias: __X__None, ____Few; Moderate; Many and confluent Hypopigmentation: _X___None; ____Slight or localized; ____Marked or generalized Hyperpigmentation: __X__None; ____Slight or localized; ____Marked or generalized Fibrosis: None; __X___Increased density; ____Marked increased density + retraction; ____ Very marked Dry skin: __XX__None; ____Asymptomatic; symptomatic; Interferes with ADL Cosmetic Result: Excellent; __X___Good;____ Fair; ____Poor 09/26/2010--mammogram Reason for Exam: Screening, h/o LB cancer s/p BCT Technique: Craniocaudal (CC) and Medio-lateral Oblique (MLO) views of both breasts obtained with direct digital capture. The exam was evaluated by CAD version 8.3.17. Findings: This is a negative mammogram (ACR Category 1). There is a stable fibroglandular pattern without significant change from prior studies. There is no mammographic evidence of cancer. The breasts are extremely dense which greatly limits mammographic sensitivity for the detection of malignancy. CONCLUSION: This is a NEGATIVE mammogram (ACR Category 1). Assessment and Plan: Left breast cancer: Ms Garza is doing well at this time with FRANCISCO. She was encouraged to continue her exercise regime and excellent weight control given known benefits of this in cancer control. She continues with exercises taught by Bea Ingram in PT to manage mild breast edema. She is to have her next mammogram in September of 2010. We will otherwise see her again in one year. She is to call if she has any questions or concerns. documented in this encounter Plan of Treatment Upcoming Encounters Date Type Specialty Care Team Description 11/14/2021 Office Visit Audiology Onelia Locke, NICOLE [facility] AUDIOLOGY [place], [place] [address] (Wo rk) documented as of this encounter Visit Diagnoses Diagnosis Breast CA - Primary Malignant neoplasm of breast (female), u nspecified site documented in this encounter Care Teams Photography Assistant Relationship Specialty Start Date End Date Francisco Javier Bonner MD PCP - General 02/26/10 04/05/19 documented as of this encounter
--- OUTSIDE RECORDS SUMMARY | 2021-10-04 02:51 | XMS_ITS | Encounter Summary ---
:1960 Author Organization [place] [address] Care Team Providers Name Role Phone Francisco Javier Bonner MD Primary Care Provider Encounter Details Date Type Department Care Team Description 06/05/2017 Office Visit Audiology at [facility] nOelia Locke, Fitting and adjustment [facility] [place] [address] AUDIOLOGY DEPT [phone] [place], [place] [address] Social History Tobacco Use Types Packs/Day Years Used Date Never Smoker Alcohol Use Standard Drinks/Week Comments No 0 (1 standard drink = 0.6 oz pure alcoho l) Sex Assigned at Date Recorded Not on file documented as of this encounter Progress Notes Onelia Locke, AUD - 06/05/2017 11:15 AM EST AUDIOLOGY Dianne Garza was seen today for a hearing aid check following a hearing re- evaluation. Please refer to the audiogram and associated note for details on otologic symptoms and hearing test results. Ms. Garza reported that the hearing aids are very helpful for speech understanding. Understanding speech in the presence of background noise can be very challenging. Quick-SIN results showed a 10.0 binaural SNR Loss today. The following actions were taken: ?? Both devices were cleaned and a listening check indicated that they were functioning appropriately. ?? Hearing aid programming was adjusted (minor gain adjustments) so that the aided responses approximated prescriptive targets for speech without exceeding MPO targets. Ms. Garza was subjectively satisfied with the sound quality of the aid, and loudness discomfort was denied. Simulated real ear measures were obtained and function of the directional microphones was verified. Three extra domes were provided for each hearing instrument The Phonak Ish Pen system was discussed and demonstrated. Ms. Garza will consider this and will contact the clinic if interested in fitting of the devices. RECOMMENDATIONS Annual hearing evaluation and hearing aid check, sooner if concerns arise in the interim. Abhi [place] [address] ; HEARING AID(S): HEARING AID ?? RIGHT ?? LEFT ?? Make/Model/Style ?? Phonak Audeo V90 312-T ?? Phonak Audeo V90 312-T ?? Casing Color ?? Petrol ?? Petrol ?? Serial Number ?? [id number] ?? [id number] ?? Battery Size ?? 312 ?? 312 ?? Invoice number / date ?? [id number] 03/09/14 ?? [id number] 03/09/14 ?? PROGRAM/SETTINGS ? Fitting Algorithm ?? [...] tube / ROCÍO specifics ?? Length 1 owner/photographer/ small closed dome ?? Length 1 owner/photographer/ small closed dome ?? Impression Date ? Invoice # ? ACCESSORIES ? Make/Model ? Color ? Serial Number ? Warranty date ? Invoice number/date ? documented in this encounter Plan of Treatment Upcoming Encounters Date Type Specialty Care Team Description 11/14/2021 Office Visit Audiology Onelia Locke AUD [facility] AUDIOLOGY [place], [place] [address] (Wo rk) documented as of this encounter Visit Diagnoses Diagnosis Fitting and adjustment of hearing aid documented in this encounter Care Teams Paint Dipper Relationship Specialty Start Date End Date Francisco Javier Bonner MD PCP - General 02/26/10 04/05/19 documented as of this encounter
--- OUTSIDE RECORDS SUMMARY | 2021-10-04 02:51 | XMS_ITS | Encounter Summary ---
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 [place] [address] Social History Tobacco Use Types Packs/Day Years Used Date Never Smoker Alcohol Use Standard Drinks/Week Comments No 0 (1 standard drink = 0.6 oz pure alcoho l) Sex Assigned at Date Recorded Not on file documented as of this encounter Last Filed Vital Signs Vital Sign Reading Time Taken Comments Blood Pressure 110/70 08/03/2013 1:03 PM EDT Pulse - - Temperature - - Respiratory Rate - - Oxygen Saturation - - Inhaled Oxygen Concentration - - Weight 58.7 kg (129 lb 8 oz) 08/03/2013 1:03 PM EDT Height 156.2 cm (5' 1.5) 08/03/2013 1:03 PM EDT Body Mass Index 24.07 08/03/2013 1:03 PM EDT documented in this encounter Progress Notes Meredith Wan RN - 08/03/2013 1:12 PM EDT Health Screening Total cholesterol: 230 HDL cholesterol: 79 Total/HDL cholesterol ratio: 2.9 Non-fasting (<6 hrs post-prandial) glucose: 151 Fasting (>6 hrs post-prandial) glucose: n/a Waist circumference: 27 We use a rapid fingerstick method to measure total cholesterol, HDL, and blood glucose. The Orate LDX System is a [id number] testing device that separates plasma from whole blood and provides analytical results in five minutes. This system is certified by the Cholesterol Reference Method Laboratory Network (CRMLN) and meets the National Education Cholesterol Program's analytical goals. documented in this encounter Plan of Treatment Upcoming Encounters Date Type Specialty Care Team Description 11/14/2021 Office Visit Audiology Onelia Locke, NICOLE [facility] [place]IOLOG[place], [place] [address] (Wo rk) documented as of this encounter Visit Diagnoses Not on filedocumented in this encounter Care Teams Senior Cobol Developer Relationship Specialty Start Date End Date Francisco Javier Bonner MD PCP - General 02/26/10 04/05/19 documented as of this encounter
--- OUTSIDE RECORDS SUMMARY | 2021-10-04 02:51 | XMS_ITS | Encounter Summary ---
:1960 Author Organization [place] [address] Care Team Providers Name Role Phone Francisco Javier Bonner MD Primary Care Provider Reason for Visit Reason Comments Follow Up Surgery Encounter Details Date Type Department Care Team Description 11/06/2011 Follow-Up General Surgery at CLINIC, DR SCALES Breast CA (Primary Dx) [facility] Dinora Hickey, REPAIR MANAGER [facility] [place] [address] [place] [address] Social History Tobacco Use Types Packs/Day Years Used Date Never Smoker Alcohol Use Standard Drinks/Week Comments No 0 (1 standard drink = 0.6 oz pure alcoho l) Sex Assigned at Date Recorded Not on file documented as of this encounter Progress Notes Dinora Hickey, AZEEM - 11/06/2011 11:37 AM EDT Ms. Dianne Garza is a 50 y[address] Pt of Dr. Krishnan who returns [...] DCIS Microcalcifications: Identified in DCIS Correlation Bx's/Cytology: [id number] Other findings: Fibrocystic disease with benign ductal hyperplasia and adenosis Estrogen/progestin receptors: Performed on Block A2 ER immunoreactivity: Positive (see Diagnostic Cervantes*) DC immunoreactivity: Positive (see Diagnostic Cervantes*) Of note, the fascia was taken at the deep margin. Dianne was treated with whole breast xrt which she completed in June.She had some central edema which is now [...] left breast. No masses in either breast. Mammogram today: pending A/P Dianne is doing well without evidence of recurrent disease. I will see Dianne back in 1 year with b/l mammogram. She will call me with new issues if they arise. documented in this encounter Plan of Treatment Upcoming Encounters Date Type Specialty Care Team Description 11/14/2021 Office Visit Audiology Onelia Locke, NICOLE [facility] AUDIOLOGY [place], [place] [address] (Wo rk) documented as of this encounter Visit Diagnoses Diagnosis Breast CA - Primary Malignant neoplasm of breast (female), u nspecified site documented in this encounter Care Teams Data Communications Technician Relationship Specialty Start Date End Date Francisco Javier Bonner MD PCP - General 02/26/10 04/05/19 documented as of this encounter
--- OUTSIDE RECORDS SUMMARY | 2021-10-04 02:51 | XMS_ITS | Encounter Summary ---
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 Please refer to the audiogram in the electronic medical record for findings, impressions and recommendations. Diogenes De Santiago MS, [facility] [place] [address] [phone] (fax) documented in this encounter Plan of Treatment Upcoming Encounters Date Type Specialty Care Team Description 11/14/2021 Office Visit Audiology Onelia Locke AUD [facility] AUDIOLOGY DEPT [place], [place] [address] (Wo rk) documented as of this encounter Procedures Procedure Name Priority Date/Time Associated Comments Diagnosis COMPREHENSIVE HEARING Routine 12/13/2015 2:46 PM Results for this TEST EDT procedure are i n the results section. documented in this encounter Results Comprehensive hearing test (12/13/2015 2:46 PM EDT) Specimen (Source) Anatomical Collection Method Collection Time Re ceived Time Location / / Volume Laterality 12/13/2015 2:46 PM EDT Narrative AUD[facility] COMP - 12/13/2015 2:46 PM EDT Seen in conjunction with Abhi Weldon for audiologic management. ??She denied any changes in hearing or new otologic concerns sinc e her last evaluation completed in [place] in 2013. She does have a history of extensive fam ilial hearing loss (maternal side) with onset in middle age. Overall she continues to note posi tive results with her binaural hearing aids. ?? Today's results demonstrate essentially stable hearing since the last non D-H evaluation of 2013. The previous test results with unm asked bone conduction thresholds was suggested to be sensorineural in nature bilaterally. ??H owever, today's results with masked bone conduction reveal the following: Right ear: ??Moderate sloping to severe mixed hearing loss. Left ear: ??Moderate rising to mild mixe d hearing loss between 250-3000 Hz, sloping to a moderate to severe mixed hearing loss at 6924-9885 Hz. Tympanometry showed normal ECV, TM compl iance and middle ear pressure in both ears. Impressions/Recommendations: ??Bilateral mixed hearing loss. ??Given this finding, although amplification continues to be recommende d, ENT follow-up is suggested to further assess the nature of her mixed loss. ??Ms. Garza requested this be arranged through our ENT clinic (due to insurance coverage). ??An appointment will be arranged for her at the conclusion of her visits today. ??She will follow-up with Abhi Weldon for audiologic management as scheduled. ?? Procedure Note Unknown - 12/13/2015Formatting of this n ote might be different from the original. Seen in conjunction with Eveline Weldon uD for audiologic management. She denied any changes in hearing or new otologic concerns sinc e her last evaluation completed in [place] in 2013. She does have a history of extensive fam ilial hearing loss (maternal side) with onset in middle age. Overall she continues to note posi tive results with her binaural hearing aids. Today's results demonstrate essentially stable hearing since the last non D-H evaluation of 2013. The previous test results with unm asked bone conduction thresholds was suggested to be sensorineural in nature bilaterally. How ever, today's results with masked bone conduction reveal the following: Right ear: Moderate sloping to severe mi xed hearing loss. Left ear: Moderate rising to mild mixed hearing loss between 250-3000 Hz, sloping to a moderate to severe mixed hearing loss at 3877-5079 Hz. Tympanometry showed normal ECV, TM compl iance and middle ear pressure in both ears. Impressions/Recommendations: Bilateral m ixed hearing loss. Given this finding, although amplification continues to be recommende d, ENT follow-up is suggested to further assess the nature of her mixed loss. Ms. Garza re quested this be arranged through our ENT clinic (due to insurance coverage). An appointment w ill be arranged for her at the conclusion of her visits today. She will follow-up with Abhi Wallace for audiologic management as scheduled. 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
--- OUTSIDE RECORDS SUMMARY | 2021-10-04 02:51 | XMS_ITS | Encounter Summary ---
:1960 Author Organization [facility] [address] Care Team Providers Name Role Phone Francisco Javier Bonner MD Primary Care Provider Reason for Visit Reason Comments Follow Up Surgery Encounter Details Date Type Department Care Team Description 11/23/2013 Follow-Up General Surgery at CLINIC, DR YORDY [place] of [place] [facility] Dinora Hickey, DOCUMENT ANALYST [facility] [place] [address] cancer (Primary Dx) [place] [address] Social History Tobacco Use Types Packs/Day Years Used Date Never Smoker Alcohol Use Standard Drinks/Week Comments No 0 (1 standard drink = 0.6 oz pure alcoho l) Sex Assigned at Date Recorded Not on file documented as of this encounter Progress Notes Dinora Hickey, DOCUMENT ANALYST - 11/23/2013 9:40 AM EDT Dianne is a 52 y.o[address] Pt of Dr. 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 The patient hadroutine screening mammography performed in January, with the finding of microcalcifications in the upper, outer left breast (axillary tail). Additional views confirmed the findings. Stereotactic biopsy confirmed DCIS. MRI for surgical planning revealed the known malignancy with no additional ipsior contralateral findings. No adenopathy noted. 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 On exam, Dianne is well appearing [...] present No Date of last follow up 11/23/13 Mammogram today: pending A/P Dianne is doing well without evidence of recurrent disease. I will see Dianne back in 1 year with b/l mammogram. She will call me with new issues if they arise. documented in this encounter Plan of Treatment Upcoming Encounters Date Type Specialty Care Team Description 11/14/2021 Office Visit Audiology Onelia Locke, AUD [facility] AUDIOLOGY [place], [place] [address] (Wo rk) documented as of this encounter Visit Diagnoses Diagnosis History of breast cancer - Primary Personal history of malignant neoplasm o f breast documented in this encounter Care Teams Sales Representative Meats Relationship Specialty Start Date End Date Francisco Javier Bonner MD PCP - General 02/26/10 04/05/19 documented as of this encounter
--- OUTSIDE RECORDS SUMMARY | 2021-10-04 02:51 | XMS_ITS | Encounter Summary ---
:1960 Author Organization [facility] [place] [address] Care Team Providers Name Role Phone Francisco Javier Bonner MD Primary Care Provider Reason for Visit Reason Comments Follow Up Surgery Encounter Details Date Type Department Care Team Description 11/29/2015 Office Visit General Surgery at Dinora Hickey of breast [facility] B, INCIDENT RESPONSE ANALYST cancer [facility] [address] [place] GENERAL SURGERY [address] [place] [address] [phone] (Wo rk) Social History Tobacco Use Types Packs/Day Years Used Date Never Smoker Alcohol Use Standard Drinks/Week Comments No 0 (1 standard drink = 0.6 oz pure alcoho l) Sex Assigned at Date Recorded Not on file documented as of this encounter Progress Notes Dinora Hickey APRN - 11/29/2015 10:30 AM EDT Dianne is a 55 y[address] Pt of Dr. 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 On exam, Dianne is well appearing and [...] present No Date of last follow up 11/29/15 Mammogram today: cat 1 A/P Dianne is doing well without evidence of recurrent disease. I will see Dianne back in 1 year with b/l mammogram. She will call me with new issues if they arise. documented in this encounter Plan of Treatment Upcoming Encounters Date Type Specialty Care Team Description 11/14/2021 Office Visit Audiology Onelia Locke, NICOLE [facility] AUDIOLOGY DEPT [place] [id number] (Wo rk) documented as of this encounter Results Mammo Screen CAD and Mitch Bilat (Generic) (12/12/2016 9:50 AM EDT) Anatomical [...] compared with p rior images. FINDINGS: Breast density:The breasts are extremely dense, which lowers the sensitivity of mammography. There are no suspicious microcalcificati ons, masses, or areas of distortion. There are post treatment changes in the left breast. CONCLUSION: No mammographic evidence of malignancy. RECOMMENDATION: Routine screening. BIRADS CATEGORY 2: BENIGN FINDINGS * ??The [employer] an d The Society [...] breast documented in this encounter Care Teams Commutator V Ring Assembler Relationship Specialty Start Date End Date Francisco Javier Bonner MD PCP - General 02/26/10 04/05/19 documented as of this encounter
--- OUTSIDE RECORDS SUMMARY | 2021-10-04 02:51 | XMS_ITS | Encounter Summary ---
:1960 Author Organization [facility] Address [address] [place] [address] Care Team Providers Name Role Phone Francisco Javier Bonner MD Primary Care Provider Encounter Details Date Type Department Care Team Description 06/17/2018 Office Visit Audiology at [facility] Kennedytimbo Onelia L, Mixed conductive and sensori neural hearing loss of right ear with restricted hearing of left ear; [facility] AUD Sensorineural hearing loss, unilateral, left ear, with restricted hearing on the contralateral side; [facility] Fitting and adjustment of he aring aid [place], [place] CENTER [address] AUDIOLOGY DEPT [phone] [place], [place] [address] Social History Tobacco Use Types Packs/Day Years Used Date Never Smoker Alcohol Use Standard Drinks/Week Comments No 0 (1 standard drink = 0.6 oz pure alcoho l) Sex Assigned at Date Recorded Not on file documented as of this encounter Progress Notes Onelia Locke, AUD - 06/17/2018 1:00 PM EDT AUDIOLOGY Dianne Garza was seen today for a hearing aid check. The hearing aids are used to manage bilateral sensorineural hearing loss. Ms. Garza reports no overt concerns regarding hearing aid or hearing aid function. In certain noisy environments the loudness of her voice increases, but she uses the mute function on her devices. Eliana Corrigan, AuD Machine Rough Rounder, was present and assisted with this appointment. I was present throughout the patient's visit. The following actions were taken: ?? Otoscopy showed clear ear canals bilaterally. ?? Both devices were cleaned and a listening check indicated that they were functioning appropriately. ?? Verification of fit was completed via kjop-lwu-vocquedm (REM) using the DSL- Adult prescriptive fitting method. Hearing aid programming was not adjusted as the aided responses nicely approximated targets for speech without exceeding MPO targets. Ms. Garza was subjectively satisfied with the sound quality of the aids, and loudness discomfort was denied. ?? Simulated real ear measures were obtained and function of the directional microphones was verified. ?? Three domes were provided for each hearing instrument. ?? Discussed differences between the V-line and the M-line (Bluetooth compatibility and rechargeability). Ms. Garza is not interested in upgrading her technology at this time. RECOMMENDATIONS: Return to clinic for annual hearing re-evaluation and hearing aid check, sooner if concerns arise. Please do not hesitate to contact this Section at [phone] if there are questions regarding thisreport or its recommendations. Abhi [place] [address] ; HEARING AID(S): HEARING AID RIGHT LEFT Make/Model/Style Phonak Audeo V90 312-T Phonak Audeo V90 312-T Casing Color Petrol Petrol Serial Number [id number] Battery Size 312 312 Invoice number / date [id number] 03/09/14 [id number] 03/09/14 PROGRAM/SETTINGS Fitting Algorithm DSL-Adult Same Verification Method REM Same Programs Autosense OS Mute Autosense OS Mute Disabled Features Other HEARING AID WARRANTY Original Fit Date 04/04/14 04/04/14 Current Status 06/06/16 06/06/16 EARMOLD (if BTE [place]) Lab Earmold / Slim tube / ROCÍO specifics Length 1 electronic typesetting machine operator/ small closed dome Length 1 electronic typesetting machine operator/ small closed dome Impression Date Invoice # ACCESSORIES Make/Model Color Serial Number Warranty date Invoice number/date documented in this encounter Plan of Treatment Upcoming Encounters Date Type Specialty Care Team Description 11/14/2021 Office Visit Audiology Onelia Locke AUD [facility] AUDIOLOGY [place], [place] [address] (Wo rk) documented as of this encounter Visit Diagnoses Diagnosis Mixed conductive and sensorineural heari ng loss of right ear with restricted hearing of left ear Sensorineural hearing loss, unilateral, left ear, with restricted hearing on the contralateral side Fitting and adjustment of hearing aid documented in this encounter Care Teams Neon Sign Mechanic Relationship Specialty Start Date End Date Francisco Javier Bonner MD PCP - General 02/26/10 04/05/19 documented as of this encounter
--- OUTSIDE RECORDS SUMMARY | 2021-10-04 02:51 | XMS_ITS | Encounter Summary ---
:1960 Author Organization [facility] [place] [address] Care Team Providers Name Role Phone Francisco Javier Bonner MD Primary Care Provider Encounter Details Date Type Department Care Team Description 11/18/2012 Hospital Encounter Mammography at [facility] DCIS (ductal carcinoma [facility] in situ) [place] [address] Social History Tobacco Use Types Packs/Day [...] mg tablet multivitamin (THERAGRAN) 0 09/13/2009 tablet cholecalciferol, Vitamin Take 400 Units by 0 05/26/2013 D3, 400 unit tablet mouth daily. UNABLE TO FIND Take 1 capsule by 0 mouth daily. [place] GLUCOSAMINE HCL/CHONDR VALLE 0 09/13/2009 06/21/2020 A NA (GLUCOSAMINE-CHONDROITIN) 750-600 mg Tab acetaminophen (TYLENOL) 0 09/13/2009 0 06/21/2020 325 mg tablet documented as of this encounter Plan of Treatment Upcoming Encounters Date Type Specialty Care Team Description 11/14/2021 Office Visit Audiology Onelia Locke, AUD [facility] AUDIOLOGY DEPT [place], [place] [address] (Wo rk) documented as of this encounter Procedures Procedure Name Priority Date/Time Associated Diagnosis Comme nts MAMMO SCREENING CAD Routine 11/18/2012 9:21 AM DCIS (ductal Re sults for this BILATERAL EDT carcinoma in situ) procedure are in of breast the results section. documented in this encounter [...] breast documented in this encounter Care Teams Sandwich And Drink Cart Operator Relationship Specialty Start Date End Date Francisco Javier Bonner MD PCP - General 02/26/10 04/05/19 documented as of this encounter
--- OUTSIDE RECORDS SUMMARY | 2021-10-04 02:51 | XMS_ITS | Encounter Summary ---
:1960 Author Organization [facility] [place] [address] Care Team Providers Name Role Phone Francisco Javier Bonner MD Primary Care Provider Encounter Details Date Type Department Care Team Description 11/27/2014 Hospital [place] [address] Social History Tobacco Use Types Packs/Day [...] AUD [facility] AUDI[facility] DEPT [place], [place] [address] (Wo rk) documented as of this encounter Procedures Procedure Name Priority Date/Time Associated Diagnosis Comme nts MAMMO SCREENING CAD Routine 11/27/2014 9:47 AM Re sults for this BILATERAL EDT procedure are i n the results section. documented in this encounter Results Mammo Digital Bilateral Screening With Cad (11/27/2014 9:47 AM EDT) Anatomical Region Laterality Modality Breast Bilateral Mammography Specimen (Source) Anatomical Collection Method Collection Time Re ceived Time Location / / Volume Laterality 11/27/2014 9:47 AM EDT Narrative 2014 9:23 AM EDT Reason for Exam: Screening Technique: Craniocaudal (CC) and Medio-l ateral Oblique (MLO) views of both breasts obtained with direct digital cap ture. The exam was evaluated by CAD version 8. 3.17. Findings: This is a negative mammogram (ACR Catego ry 1). There is a stable fibroglandular pattern without significant change from prior studies. ??Stable left post surgical and post therapeutic change. There is no mammographic evidence of can [...] y the breast imaging center. Procedure Note Rajiv Aldana MD - 2014Format ting of this note might be different from the original. Reason for Exam: Screening Technique: Craniocaudal (CC) and Medio-l ateral Oblique (MLO) views of both breasts obtained with direct digital cap ture. The exam was evaluated by CAD version 8. 3.17. Findings: This is a negative mammogram (ACR Catego ry 1). There is a stable fibroglandular pattern without significant change from prior studies. Stable left post surgical and post therapeutic change. There is no mammographic evidence of can [...] patient b y the breast imaging center. Dinora Hickey APRN IMG MAMMO ORDERABLES documented in this encounter Visit Diagnoses Not on filedocumented in this encounter Care Teams Mother'S Helper Relationship Specialty Start Date End Date Francisco Javier Bonner MD PCP - General 02/26/10 04/05/19 documented as of this encounter
--- OUTSIDE RECORDS SUMMARY | 2021-10-04 02:51 | XMS_ITS | Encounter Summary ---
:1960 Author Organization [facility] [place] [address] Care Team Providers Name Role Phone Francisco Javier Bonner MD Primary Care Provider Encounter Details Date Type Department Care Team Description 06/17/2011 Orders Only General Surgery at Maria D Krishnan cancer (Primary [facility] MD Noni Dx) [facility] [place] [address] GENERAL SURGERY [phone] [place], [place] [address] Social History Tobacco Use Types [...] AUD [facility] AUDIOLOGY DEPT [place], [place] [address] (Wo rk) documented as of [...] In addition to the routine 2D imaging is exam was also performed with 3D [...] site documented in this encounter Care Teams Mineral Ore Processing Labourer Relationship Specialty Start Date End Date Francisco Javier Bonner MD PCP - General 02/26/10 04/05/19 documented as of this encounter
--- OUTSIDE RECORDS SUMMARY | 2021-10-04 02:51 | XMS_ITS | Encounter Summary ---
:1960 Author Organization [facility] [place] [address] Care Team Providers Name Role Phone Francisco Javier Bonner MD Primary Care Provider Encounter Details Date Type Department Care Team Description 04/04/2014 Office Visit Audiology at [facility] Onelia Locke, Fitting and adjustment [facility] [place] [address] AUDIOLOGY DEPT [phone] [place], [place] [address] Social History Tobacco Use Types Packs/Day Years Used Date Never Smoker Alcohol Use Standard Drinks/Week Comments No 0 (1 standard drink = 0.6 oz pure alcoho l) Sex Assigned at Date Recorded Not on file documented as of this encounter Progress Notes Onelia Ruano, AUD - 04/04/2014 10:47 AM EST AUDIOLOGY Dianne Garza was fit today with binaural hearing aids. Hearing aid programming was adjusted so that the aided responses approximated prescriptive targets for speech without exceeding MPO targets. Ms. Garza was subjectively satisfied with the sound quality of the aids (sounds were louder than she has been used to, but not uncomfortable), and loudness discomfort was denied. Ms. Garza was instructed on use, care and maintenance of the hearing aids, including instruction on hearing aid insertion/removal, cleaning and batteries. Warranty coverage, and the 30-day trial period were discussed. A review of expectations and the hearing aid adjustment process were also discussed. Ms. Garza was able to insert and manipulate the instruments with relative ease. she will be seenin 2-4 weeks for a follow-up hearing aid check and orientation. Lito Cancino Clinical [place] [address] (fax) HEARING AID(S): HEARING AID RIGHT LEFT Make/Model/Style Phonak Audeo V90 312-T Phonak Audeo V90 312-T Casing Color Petrol Petrol Serial Number [id number] Battery Size 312 312 Invoice number / date [id number] 03/09/14 [id number] 03/09/14 PROGRAM/SETTINGS Fitting Algorithm DSL-Adult Same Verification Method REM Same Programs Autosense OS Autosense OS Disabled Features Push button Same Other HEARING AID WARRANTY Original Fit Date 04/04/14 04/04/14 Current Status 06/06/16 06/06/16 EARMOLD (if BTE [place]) Lab Earmold / Slim tube / ROCÍO specifics 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 AUDIOLOGY DEPT [place], [place] [address] (Wo rk) documented as of this encounter Visit Diagnoses Diagnosis Fitting and adjustment of hearing aid documented in this encounter Care Teams Angiographer Relationship Specialty Start Date End Date Francisco Javier Bonner MD PCP - General 02/26/10 04/05/19 documented as of this encounter
--- OUTSIDE RECORDS SUMMARY | 2021-10-04 02:51 | XMS_ITS | Encounter Summary ---
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 Pt of Dr. 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 Spending more time with her AirBNB's. On exam, Dianne is well appearing and [...] present No Date of last follow up 12/23/18 Mammogram today: pending A/P Dianne is doing well without evidence of recurrent disease. RTCin 1 year with b/l mammogram. She will call me with new issues if they arise. I told Dianne that I will be retiring in February and that her next follow up surgical appointment will be with a new provider.She agrees. documented in this encounter Plan of Treatment Upcoming Encounters Date Type Specialty Care Team Description 11/14/2021 Office Visit Audiology Onelia Locke, AUD [facility] AUDIOLOGY [place], [place] [address] (Wo rk) documented as of this encounter Visit Diagnoses Diagnosis History of breast cancer Personal history of malignant neoplasm o f breast documented in this encounter Care Teams Powerhouse Mechanic Relationship Specialty Start Date End Date Francisco Javier Bonner MD PCP - General 02/26/10 04/05/19 documented as of this encounter
--- OUTSIDE RECORDS SUMMARY | 2021-10-04 02:51 | XMS_ITS | Encounter Summary ---
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 Pt of Dr. 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 On exam, Dianne is well appearing and [...] present No Date of last follow up 12/12/16 Mammogram today: cat 2 A/P Dianne is doing well without evidence of recurrent disease. I will see Dianne back in 1 year with b/l mammogram. She will call me with new issues if they arise. documented in this encounter Plan of Treatment Upcoming Encounters Date Type Specialty Care Team Description 11/14/2021 Office Visit Audiology Onelia Locke, NICOLE [facility] AUDIOLOGY DEPT [place] [phone] (Wo rk) documented as of this encounter Results Mammo Screen CAD and Mitch Bilat (Generic) (12/18/2017 10:26 AM EDT) Anatomical [...] FINDINGS * ??Medical organizations agree that pedro l screening mammography beginning at age 40 saves [...] health care provider right away. Dinora Hickey APRN IMG MAMMO ORDERABLES documented in this encounter Visit Diagnoses Diagnosis History of breast cancer Personal history of malignant neoplasm o f breast History of breast cancer Personal history of malignant neoplasm o f breast documented in this encounter Care Teams Wool Puller Relationship Specialty Start Date End Date Francisco Javier Bonner MD PCP - General 02/26/10 04/05/19 documented as of this encounter
--- OUTSIDE RECORDS SUMMARY | 2021-10-04 02:52 | XMS_ITS | Encounter Summary ---
:1960 Author Organization [facility] Address [address] [place] [address] Care Team Providers Name Role Phone Unavailable Primary Care Provider Unavailable Encounter Details Date Type Department Care Team Description 01/30/2005 Results Only [facility] - Jimmy Vaughan MD [address] [place], [place] [address] [place] [address] [phone] Social History Tobacco Use Types Packs/Day Years Used Date Never Assessed Sex Assigned at Date Recorded Not on file documented as of this encounter Plan of Treatment Not on filedocumented as of this encounter Procedures Procedure Name Priority Date/Time Associated Diagnosis Comme nts CYTOPATHOLOGY Routine 01/30/2005 0:00 EDT Results for this procedure are i n the results section . documented in this encounter Results CYTOPATHOLOGY (01/30/2005 0:00 EDT) Pathology Report: CYTOPATHOLOGY REPORT [facility] Reports generated via electronic interface contain chuy ginal data; however they are lacking the format of the original re port. Caution should be taken when reading/interpreting unfo rmatted reports. Name: ? DIANNE MCDERMOTT ? Accession #: ? [id number] : ? 1960 (Age: 44) ??F ?Collect Date: ? 01/05 Location: ? [facility] ? Receive Date : ? 02/03/2005 Provider: ?JIMMY GUERRERO MD Copy to: ? Specimen/Source: ? ThinPrep Pap Test, Cervix/Endocervix, processed on [employer] ThinPrep Imaging System, with manual evaluation Last Menstrual Period: ? 09/15/04 Other: ? DHPV - HPV testing requested if ASCUS/MELIZA on the [employer] ent ThinPrep Pap test. ? SPECIMEN ADEQUACY ? Satisfactory for Evaluation - transformation zone component present GENERAL CATEGORIZATION ? Other, see interpretation INTERPRETATION ? Endometrial cells present in a woman equal to o r greater than age 40. Negative for Intraepithelial Lesion or Malignancy. Fungal organisms present morphologically consistent wi th Brynn species. EDUCATIONAL NOTES/RECOMMENDATIONS ? Benign appearing endometrial cells on Pap tests are usually a normal finding in women with regular menstrual cycles, especially if the Pap test was collected during the first half of the menstrual cycle . There is data showing that e ndometrial cells on Pap tests may be associated with endometrial/uterine abnormal ities in post menopausal women or in perimenopausal women with abnormal bleeding. There is limited data on the significance of angelica ign endometrial cells in post menopausal women on HRT. ??Clinical correlation is rec ommended. Note: ??The Pap test is not an accurate test for the screening of endometrial lesions and should not be used as a follow up in patie nts with clinical suspicion of endometrial pathology. ? Document reviewed and electronically signed by: ? FARNAZ Prieto(ASCP) ? Report Date: ??02/07/2005 10:38 End of Report Specimen Performing Organization Address City/State/ZIP Code Phon e Number [facility] [address] [place] [address] SERVICES [facility] [address] [place] [address] documented in this encounter Visit Diagnoses Not on filedocumented in this encounter
--- OUTSIDE RECORDS SUMMARY | 2021-10-04 02:52 | XMS_ITS | Encounter Summary ---
:1960 Author Organization [facility] Address [address] [place] [address] Care Team Providers Name Role Phone Unavailable Primary Care Provider Unavailable Encounter Details Date Type Department Care Team Description 01/08/2004 Results Only [facility] - Jimmy Vaughan MD [address] [place], [place] [id number] [place] [address] [phone] Social History Tobacco Use Types Packs/Day Years Used Date Never Assessed Sex Assigned at Date Recorded Not on file documented as of this encounter Plan of Treatment Not on filedocumented as of this encounter Procedures Procedure Name Priority Date/Time Associated Diagnosis Comme nts CYTOPATHOLOGY Routine 01/08/2004 0:00 EDT Results for this procedure are i n the results section . documented in this encounter Results CYTOPATHOLOGY (01/08/2004 0:00 EDT) Pathology Report: CYTOPATHOLOGY REPORT [facility] Reports generated via electronic interface contain chuy ginal data; however they are lacking the format of the original re port. Caution should be taken when reading/interpreting unfo rmatted reports. Name: ? DIANNE MCDERMOTT ? Accession #: ? [id number] : ? 1960 (Age: 43) ??F ?Collect Date: ? 07/2003 Location: ? [facility] ? Receive Date : ? 01/10/2004 Provider: ?JIMMY GUERRERO MD Copy to: ? Specimen/Source: ?ThinPrep Pap Test, Cervix/ Endocervix Last Menstrual Period: ? 12/27/03 ? SPECIMEN ADEQUACY ? Satisfactory for Evaluation - transformation zone component absent GENERAL CATEGORIZATION ? Negative for Intraepithelial Lesion or Malignan cy INTERPRETATION ? Fungal organisms pres ent morphologically consistent with Brynn species. ? Document reviewed and electronically signed by: ? FARNAZ Howard(ASCP) ? Report Date: ??01/15/2004 09:49 End of Report Specimen Performing Organization Address City/State/ZIP Code Phon e Number [facility] [address] [place] [address] SERVICES [facility] [address] [place] [address] documented in this encounter Visit Diagnoses Not on filedocumented in this encounter
--- OUTSIDE RECORDS SUMMARY | 2021-10-04 02:52 | XMS_ITS | Clinical Summary ---
:1960 Author Organization [facility] Address [address] [place] [address] Care Team Providers Name Role Phone Unknown, Provider Primary Care Provider Unknown, Provider Unavailable Social History Tobacco Use Types Packs/Day Years Used Date Never Assessed Sex Assigned at Date Recorded Not on file Plan of Treatment Health Maintenance Due Date Last Done Comments Hepatitis C Screen 1960 COVID-19 Vaccine (1) 11/29/1963 Care Teams Web Site Project Manager Relationship Specialty Start Date End Date Unknown, ProviderMD PCP - General 11/24/17 Unknown, ProviderMD 11/24/17
--- OUTSIDE RECORDS SUMMARY | 2021-10-04 02:52 | XMS_ITS | Encounter Summary ---
:1960 Author Organization [facility] Address [address] [place] [address] Care Team Providers Name Role Phone Unavailable Primary Care Provider Unavailable Encounter Details Date Type Department Care Team Description 12/03/2000 Results Only [facility] - Jimmy Vaughan MD [address] [place], [place] [id number] [place] [address] [phone] Social History Tobacco Use Types Packs/Day Years Used Date Never Assessed Sex Assigned at Date Recorded Not on file documented as of this encounter Plan of Treatment Not on filedocumented as of this encounter Procedures Procedure Name Priority Date/Time Associated Diagnosis Comme nts CYTOPATHOLOGY Routine 12/03/2000 0:00 EDT Results for this procedure are i n the results section . documented in this encounter Results CYTOPATHOLOGY (12/03/2000 0:00 EDT) Pathology Report: CYTOPATHOLOGY REPORT [facility] Reports generated via electronic interface contain chuy ginal data; however they are lacking the format of the original re port. Caution should be taken when reading/interpreting unfo rmatted reports. Name: ? DIANNE MCDERMOTT ? Accession #: ? [id number] : ? 1960 (Age: 40) ??F ?Collect Date: ? 11/06 Location: ? [facility] ? Receive Date : ? 12/08/2000 Provider: ?JIMMY GUERRERO MD Copy to: ? Specimen/Source: ?ThinPrep Pap Test, Cervix/ Endocervix Last Menstrual Period: ? 11/19/00 ? SPECIMEN ADEQUACY ? Satisfactory for evaluation. GENERAL CATEGORIZATION ? Benign Cellular Changes DESCRIPTIVE DIAGNOSIS ? Predominance of coccobacilli present consistent with shift in vaginal bakari. ? Document reviewed and electronically signed by: ? Jami Kohler, SCT(ASCP) ? Report Date: ??12/09/2000 12:03 End of Report Specimen Performing Organization Address City/State/ZIP Code Phon e Number [facility] [address] [place] [address] SERVICES [facility] [address] [place] [address] documented in this encounter Visit Diagnoses Not on filedocumented in this encounter
--- OUTSIDE RECORDS SUMMARY | 2021-10-04 02:52 | XMS_ITS | Encounter Summary ---
:1960 Author Organization [facility] Address [address] [place] [address] Care Team Providers Name Role Phone Unknown, Provider Primary Care Provider Unknown, Provider Unavailable Encounter Details Date Type Department Care Team Description 06/20/2021 Lab Requisition [facility] Outr Resulting Lab, Pathology & Laboratory Provider [facility] [address] [place] [address] Social History Tobacco Use Types Packs/Day Years Used Date Never Assessed Sex Assigned at Date Recorded Not on file documented as of this encounter Plan of Treatment Not on filedocumented as of this encounter Procedures Procedure Name Priority Date/Time Associated Comments Diagnosis THYROPEROXIDASE ANTIBODY Routine 06/20/2021 8:40 Results for this EDT procedure are i n the results section. documented in this encounter Results (ABNORMAL) THYROPEROXIDASE ANTIBODY (06/20/2021 8:40 EDT) Pathologist Sig nature Thyroperoxidase Ab 100 (H) <=60 U/mL [facility] Specimen Blood - Venous blood (substance) Performing Organization Address City/State/ZIP Code Phon e Number [facility] [address] [place] [address] SERVICES documented in this encounter Visit Diagnoses Not on filedocumented in this encounter Care Teams Healthcare Prof Relationship Specialty Start Date End Date Unknown, Provider, PCP - General 11/24/17 Unknown, ProviderMD 11/24/17 documented as of this encounter
[2021-10-04 10:24] LABS: TSH 1.52 uIU/mL (0.36-3.74)
[2021-10-04 22:45] LABS: T3, Total 114 ng/dL (97-169)
== END 2021-10-04 02:50 | disposition home or self-care (01) ==
PROVIDERS: PCP Nurse Practitioner Family; Visit Provider Internal Medicine Endocrinology, Diabetes & Metabolism
DX: E04.1 Nontoxic single thyroid nodule (principal); E06.3 Autoimmune thyroiditis
CPT/HCPCS: 36415; 84439; 84443; 84480

== ENCOUNTER 2022-11-21 02:41 | Outpatient (CLI) | payer OTHER, SELFPAY ==
[2022-11-21 09:52] LABS: Anion Gap 7.6 mmol/L (3-11); BUN 22 mg/dL (7-18); CO2 29.4 mmol/L (21.0-32.0); CREATININE 0.8 mg/dL (0.55-1.02); Calcium 9.5 mg/dL (8.5-10.1); Chloride 104 mmol/L (98-107); Estimated GFR 82.74 (mL/min/1.73m2); Glucose 96 mg/dL (74-106); Potassium 4.2 mmol/L (3.5-5.1); Sodium 141 mmol/L (136-145)
[2022-11-21 10:12] LABS: TSH 1.17 uIU/mL (0.36-3.74)
[2022-11-21 10:14] LABS: Hemoglobin A1C 5.7 % (<5.7)
[2022-11-21 19:11] LABS: Thyroperoxidase Antibody 72 U/mL (<=60)
== END 2022-11-21 02:42 | disposition home or self-care (01) ==
PROVIDERS: PCP Nurse Practitioner Family; Visit Provider Internal Medicine Endocrinology, Diabetes & Metabolism
DX: Z00.00 Encounter for general adult medical examination without abnormal findings (principal); E06.3 Autoimmune thyroiditis
CPT/HCPCS: 36415; 80048; 82306; 83036; 84443; 86376

== ENCOUNTER 2023-09-04 01:03 | Outpatient (CLI) | payer BC, SELFPAY ==
[2023-09-04 08:55] LABS: Abs Immature Grans 0.01 10^3/uL (0.0-0.06); Absolute Basophil Count 0.03 10^3/uL (0.0-0.2); Absolute Eosinophil Count 0.08 10^3/uL (0.0-0.7); Absolute Lymphocyte Count 1.32 10^3/uL (1.2-3.4); Absolute Monocyte Count 0.27 10^3/uL (0.1-0.8); Absolute Neutrophil Count 2.14 10^3/uL (1.2-6.7); Basophils % 0.8 %; Eosinophils % 2.1 %; HCT 41.3 % (36.0-46.0); HGB 13.9 g/dL (11.2-15.7); Immature Grans % 0.3 %; Lymphocytes % 34.3 %; MCH 30.8 pg (27.0-33.0); MCHC 33.7 % (32.0-36.0); MCV 91 fL (80-95); MPV 9.8 fL (8.0-11.0); Neutrophils % 55.5 %; Platelet Count 309 10^3/uL (130-400); RBC 4.52 10^6/uL (3.93-5.22); RDW 12.9 % (11.7-14.6); RDW-SD 43.6 fL; WBC 3.85 10^3/uL (4.4-10.8)
[2023-09-04 09:19] LABS: Hemoglobin A1C 5.9 % (<5.7)
[2023-09-04 10:18] LABS: ALT 24 U/L (14-59); AST 21 U/L (15-37); Albumin 3.8 g/dL (3.4-5.0); Alkaline Phosphatase 58 U/L (46-116); Anion Gap 6.9 mmol/L (3-11); BUN 24 mg/dL (7-18); Bilirubin, Total 0.4 mg/dL (0.2-1.0); CO2 31.1 mmol/L (21.0-32.0); Calcium 9.1 mg/dL (8.5-10.1); Calculated LDL 93 mg/dL (<100); Chloride 104 mmol/L (98-107); Cholesterol 160 mg/dL (<200); Estimated GFR 62.91 (mL/min/1.73m2); Glucose 96 mg/dL (74-106); HDL Cholesterol 59 mg/dL (40-60); Potassium 4.6 mmol/L (3.5-5.1); Sodium 142 mmol/L (136-145); TSH (W/Ref FT4) 1.55 uIU/mL (0.36-3.74); Total Protein 7.3 g/dL (6.4-8.2); Triglyceride 42 mg/dL (<150); Vitamin D 25 Total 80.9 ng/mL (30-100)
[2023-09-04 21:21] LABS: Hepatitis C Ab w Rflx HCV PCR Negative (Negative)
== END 2023-09-04 01:04 | disposition home or self-care (01) ==
PROVIDERS: PCP Nurse Practitioner Family; Visit Provider Nurse Practitioner Family
DX: M85.89 Other specified disorders of bone density and structure, multiple sites (principal); Z85.3 Personal history of malignant neoplasm of breast; R73.03 Prediabetes; E04.1 Nontoxic single thyroid nodule; Z11.59 Encounter for screening for other viral diseases
CPT/HCPCS: 36415; 80053; 80061; 82306; 86803; 83036; 84443; 85025

== ENCOUNTER 2025-01-25 09:22 | Outpatient (CLI) | payer BC, SELFPAY ==
[2025-01-25 08:12] LABS: Hemoglobin A1C 5.7 % (<5.7)
[2025-01-25 09:55] LABS: TSH (W/Ref FT4) 1.79 uIU/mL (0.36-3.74)
[2025-01-25 11:36] LABS: Vitamin D 25 Total 65 ng/mL (30-100)
== END 2025-01-25 09:23 | disposition home or self-care (01) ==
LOC: LBO 09:22
PROVIDERS: Internal Medicine Endocrinology, Diabetes & Metabolism; PCP Nurse Practitioner Family; Visit Provider Family Medicine
DX: E03.9 Hypothyroidism, unspecified (principal); E06.3 Autoimmune thyroiditis; E04.1 Nontoxic single thyroid nodule; M85.80 Other specified disorders of bone density and structure, unspecified site; R73.03 Prediabetes; E55.9 Vitamin D deficiency, unspecified
CPT/HCPCS: 36415; 82306; 83036; 84443